=== PATIENT | female | born 1995 | race African-American/Black ===

== ENCOUNTER 2019-07-02 20:11 | Emergency (ER) | payer OTHER, SELFPAY ==
[2019-07-02 20:35] VITALS: BP 135/86; PULSE 82; RESP 18; TEMP 36.2; O2SAT 100
--- NOTE | 2019-07-02 22:06 | ED.URI ---
HPI - URI/Sore Throat General Chief Complaint: Upper Respiratory Infection Stated Complaint: sore throat Time Seen by Provider: 07/02/19 22:04 Source: patient and RN notes reviewed Mode of arrival: ambulatory Limitations: no limitations History of Present Illness HPI Narrative: Pt is a 24 y/o female presenting to the ED c/o ST. Pt states she has been experiencing a ST along with Bilateral otalgia for 2 days. Pt states she experienced mild CP on her way to the ED, but denies fever or cough. Her sx, at this point, are all gone. Pt states her otalgia has resolved. Pertinent past history: other (None) Onset (ago): day(s) (2) Associated symptoms: chest pain and ear pain (Bilateral (resolved)) Related Data Home Medications Medication Instructions Recorded Confirmed insulin glargine [Lantus U-100 35 unit SUBCUT HS 07/02/19 Insulin] insulin lispro [Humalog KwikPen 10 unit SUBCUT ONCE 07/02/19 Insulin] Allergies Allergy/AdvReac Type Severity Reaction Status Date / Time No Known Allergies Allergy Unverified 01/15/17 16:45 Review of Systems Review of Systems: All systems reviewed & are unremarkable except as noted in HPI and below Constitutional: Constitutional: Denies fever(s) ENT: Reports otalgia (Bilateral (resolved)) and Reports sore throat Cardiovascular: Cardiovascular: Denies chest pain Respiratory: Respiratory: Denies cough PMFSH Past Medical History Medical History Diabetes mellitus Surgical History Surgical History History of tonsillectomy Social History Social History Smoking status: Unknown if ever smoked Gender identity (if verbalized by the patient): Female Exam Const: General: healthy appearing, no acute distress and well developed Nutritional Appearance: well nourished Orientation/consciousness: patient oriented x3 (alert) and Other orientation findings (Alert) Limitations: no limitations HENMT: Head: normocephalic and atraumatic Ears: external ears normal General nose exam: No nasal discharge present and no epistaxis Face and sinus: face symmetric Mouth: Yes lip normal, Yes tongue normal and Yes moist mucous membranes Throat: other (No exudate, no erythema) Eyes: Conjunctivae: conjunctivae normal Sclera: sclerae normal EOM: EOMs intact bilaterally Neck: Neck: full ROM, no lymphadenopathy and supple Thyroid: thyroid normal Resp: Effort & Inspection: normal respiratory effort Auscultation: clear to auscultation bilaterally, no rales, no rhonchi, no wheezes and other (breath sounds equal) Cardio: Rate: regular rate Rhythm: regular rhythm Heart sounds: no gallops and no murmurs Back/Spine/Pelvis: Thoracic/Lumbar Spine: thoracic and lumbar spine normal to inspection Skin: General skin exam: normal color and no rashes or lesions noted Neuro: General: patient oriented x3 (alert), moves all extremities and no focal motor deficits Cranial nerves: Yes facial symmetry Speech: normal speech Motor exam (neuro): Motor abnormalities not present Extrem: General: normal to inspection, full ROM and no pedal edema Psych: Affect: normal affect Course Course Emergency Course: exam unremarkable and her sx have all resolved Vital Signs Vital signs: Vital Signs Temperature 36.2 C L 07/02/19 20:35 Pulse Rate 82 07/02/19 20:35 Respiratory Rate 18 07/02/19 20:35 Blood Pressure 135/86 07/02/19 20:35 Pulse Oximetry 100 07/02/19 20:35 Temperature 36.2 C L 07/02/19 20:35 Pulse Rate 80 07/02/19 22:15 Respiratory Rate 20 07/02/19 22:15 Blood Pressure 130/71 07/02/19 22:15 Pulse Oximetry 100 07/02/19 22:15 MDM - URI/Sore Throat Lab Data Labs: Strep Screen Presumptive Negative *(Reference Range: Negative)* ECG Data EKG #1: EKG Interpretation: normal rate, sinus rhythm, no S
[2019-07-02 22:13] VITALS: BP 130/71; PULSE 80; RESP 18; O2SAT 100
[2019-07-02 22:15] VITALS: BP 130/71; PULSE 80; RESP 20; O2SAT 100
--- NOTE | 2019-07-02 22:17 | ECG_ITS ---
Measurements Intervals [place] Rate: 68 P: 46 AL: 142 QRS: 25 QRSD: 77 T: 16 QT: 395 QTc: 421 Interpretive Statements SINUS RHYTHM NORMAL ECG Electronically Signed On 07-03-2019 6:40:07 [employer] by Thierno Garay D.O.
[2019-07-02 22:37] VITALS: BP 129/73; PULSE 73; RESP 12; TEMP 37.2; O2SAT 100
== END 2019-07-02 22:38 | disposition home or self-care (01) ==
PROVIDERS: Emergency Provider Emergency Medicine; PCP Family Medicine
DX: J06.9 Acute upper respiratory infection, unspecified (principal); E11.9 Type 2 diabetes mellitus without complications; Z79.4 Long term (current) use of insulin
CPT/HCPCS: 87081; 87880; 93005; 99283

== ENCOUNTER 2019-07-14 16:35 | Emergency (ER) | payer OTHER, SELFPAY ==
[2019-07-14 16:39] VITALS: BP 141/66; PULSE 87; RESP 20; TEMP 36.7; O2SAT 100
[2019-07-14 16:50] VITALS: O2SAT 98
--- NOTE | 2019-07-14 17:02 | ED.URI ---
HPI - URI/Sore Throat General Chief Complaint: Upper Respiratory Infection Stated Complaint: SORE THROAT Time Seen by Provider: 07/14/19 16:50 Source: patient Mode of arrival: ambulatory Limitations: no limitations History of Present Illness HPI Narrative: This is a 24-year-old female that presents the emergency department for sore throat x3 days. Reports pain is worse with swallowing. She has been taking [id number] medications with little relief. Denies fever, cough, congestion, or shortness of breath. Related Data Home Medications Medication Instructions Recorded Confirmed insulin glargine [Lantus U-100 35 unit SUBCUT HS 07/02/19 Insulin] insulin lispro [Humalog KwikPen 10 unit SUBCUT ONCE 07/02/19 Insulin] Allergies Allergy/AdvReac Type Severity Reaction Status Date / Time No Known Allergies Allergy Verified 07/14/19 16:51 Review of Systems Review of Systems: Narrative: CONSTITUTIONAL: Denies fever ENT: Reports sore throat. Denies rhinorrhea, congestion, or otalgia. CARDIOVASCULAR: Denies chest pain RESPIRATORY: Denies cough or dyspnea. All systems reviewed & are unremarkable except as noted in HPI and below PMFSH Social History Social History Smoking status: Unknown if ever smoked Gender identity (if verbalized by the patient): Female Exam Narrative: Exam Narrative: GENERAL: Well-appearing, well-nourished, and in no acute distress. HEAD: Normocephalic, atraumatic. EYES: EOMI. ENT: Nares clear, no rhinorrhea or epistaxis. Mucous membranes moist. Oropharynx with mild symmetric tonsillar hypertrophy, no exudate or other lesions. Bilateral TMs pearly torres non-bulging. Uvula midline. No trismus NECK: Supple. No adenopathy or masses. CHEST: Clear to auscultation. No respiratory distress. No wheezes rales or rhonchi HEART: Regular rate and rhythm. No murmur heard. Normal peripheral pulses. EXTREMITIES: Normal range of motion. No edema. SKIN: Warm, dry, no rash. NEURO: No focal deficits. Alert and oriented x3. PSYCH: Normal mood and affect Course Vital Signs Vital signs: Vital Signs Temperature 98.0 F 07/14/19 16:39 Pulse Rate 87 07/14/19 16:39 Respiratory Rate 20 07/14/19 16:39 Blood Pressure 141/66 H 07/14/19 16:39 Pulse Oximetry 100 07/14/19 16:39 Temperature 98.0 F 07/14/19 16:39 Pulse Rate 87 07/14/19 16:39 Respiratory Rate 20 07/14/19 16:39 Blood Pressure 141/66 H 07/14/19 16:39 Pulse Oximetry 98 07/14/19 16:50 MDM - URI/Sore Throat MDM Narrative Medical decision making narrative: Patient presents the emergency department for sore throat x3 days. She is afebrile and nontoxic-appearing. Mild symmetric tonsillar hypertrophy on exam without exudate or other lesions. Uvula is midline. Strep screen is negative. Patient was instructed on care of viral pharyngitis. She is to follow-up with her primary care doctor. She was given warnings to return to the ER Lab Data Attestation: I reviewed the patient's lab results. Labs: Strep Screen Presumptive Negative *(Reference Range: Negative)* Critical Care Time Critical Care Time Critical Care Time: No Discharge Plan Discharge Clinical Impression: Pharyngitis Qualifiers: Pharyngitis/tonsillitis etiology: unspecified etiology Qualified Code(s): J02.9 - Acute pharyngitis, unspecified Patient Disposition: Home, Self-Care Condition: Stable Instructions: Pharyngitis (ED) Additional Instructions: Return to the emergency department for fever greater than 101, trouble swallowing, trouble breathing, or any other concerns Remain well-hydrated, get plenty of rest. Take Tylenol or Motrin [id number] for pain as needed. Lozenges or Chloraseptic spray for sore throat. Follow up with your primary care doctor Prescriptions: No Action Lantus U-100 Insulin 100 unit/mL Solution 35 unit SUBCUT HS RF: 0 insulin
[2019-07-14 17:35] VITALS: BP 140/74; PULSE 84; RESP 16; O2SAT 99
== END 2019-07-14 17:37 | disposition home or self-care (01) ==
PROVIDERS: Emergency Provider Emergency Medicine; PCP Family Medicine
DX: J02.9 Acute pharyngitis, unspecified (principal); E11.9 Type 2 diabetes mellitus without complications; Z79.4 Long term (current) use of insulin
CPT/HCPCS: 87081; 87880; 99283

== ENCOUNTER 2019-12-30 09:21 | Observation (INO) | payer OTHER, SELFPAY ==
--- NOTE | ~2019-12-30 | XR_ITS ---
EXAMINATION: XR chest 2V DATE: 12/30/2019 10:36 INDICATION: Chest pain. Hyperglycemia. TECHNIQUE: PA and lateral views of the chest were obtained. COMPARISON: None FINDINGS: The lungs are clear with no focal airspace opacities, pulmonary edema, pleural effusion or pneumothor ax. The cardiomediastinal silhouette is normal. Visualized bones and soft tissues are unremarkable. IMPRESSION: 1. Normal chest radiograph. Reviewed, dictated and finalized at location A. IMPRESSION: 1. Normal chest radiograph.
[2019-12-30 09:36] LABS: Glucose Point of Care 399 (65-105)
--- NOTE | 2019-12-30 09:41 | ED.RECABL ---
HPI - Recheck/Abnormal Lab/Rx General Chief Complaint: Recheck/Abnormal Lab/Rx Stated Complaint: high blood sugar Time Seen by Provider: 12/30/19 09:27 Source: patient and EMS Mode of arrival: EMS Limitations: no limitations History of Present Illness HPI narrative: Patient is a 24-year-old female with a history of type 1 diabetes who presents for evaluation of chest pain and high blood sugar readings. Per patient, she has been feeling unwell since last night, she states that over the night she had polyuria, but then attempted to go to work this morning, when she arrived at work, noticed she was having some chest and shoulder pain. She states that she thought it could be attributed to her glucose, so she checked her glucose pump and noticed that it was disconnected and the needle was bent. Patient was able to fix her needle and administered herself 5 units. She stated she checked her glucose level and it was greater than 300. Patient states that she then threw up this morning and that was associated with the chest pain. After the vomiting stopped, chest pain resolved. No current chest pain or shortness of breath. No fever, hemoptysis, leg pain, calf swelling or history of DVT. No recent long car or air travel. Patient follows with an city marshal at [facility]. Related Data Home Medications Medication Instructions Recorded Confirmed insulin lispro [Humalog KwikPen 10 unit SUBCUT ONCE 07/02/19 Insulin] Allergies Allergy/AdvReac Type Severity Reaction Status Date / Time No Known Allergies Allergy Verified 12/30/19 09:51 Review of Systems Review of Systems: Narrative: CONSTITUTIONAL: Denies fever, chills, or sweats. CARDIOVASCULAR: Denies current chest pain, palpitations, or edema. RESPIRATORY: Denies cough or dyspnea. GASTROINTESTINAL: Denies abdominal pain, reports mild nausea GENITOURINARY: Denies dysuria or hematuria. SKIN: Denies rash or itching. MUSCULOSKELETAL: Denies back pain, joint pain, or myalgia. NEUROLOGIC: Denies headache, numbness, or weakness. [facility] Past Medical History Medical History Diabetes mellitus Surgical History Surgical History History of tonsillectomy Social History Social History (Updated 12/30/19 @ 09:58 by Kayli Sierra MD) Smoking status: Unknown if ever smoked Alcohol intake: current Alcohol use details: Social Gender identity (if verbalized by the patient): Female Exam Narrative: Exam Narrative: GENERAL: Awake, alert, conversant HEAD: Normocephalic, atraumatic. EYES: PERRLA and EOMI. ENT: Nares clear, no rhinorrhea or epistaxis. Mucous membranes moist. NECK: Supple. CHEST: No respiratory distress, breathing even and non labored HEART: Regular rate, sinus rhythm ABDOMEN:Non distended, non tender, pump overlying right abdomen, disconnected EXTREMITIES: Normal range of motion. No edema. SKIN: Warm, dry, no rash. NEURO:No focal deficits. Alert and oriented x3 Course Vital Signs Vital signs: Vital Signs Temperature 36.8 C 12/30/19 09:43 Pulse Rate 109 H 12/30/19 09:43 Respiratory Rate 17 12/30/19 09:43 Blood Pressure 113/78 12/30/19 09:43 Pulse Oximetry 100 12/30/19 09:43 Temperature 36.8 C 12/30/19 09:43 Pulse Rate 88 12/30/19 10:56 Respiratory Rate 18 12/30/19 10:56 Blood Pressure 115/67 12/30/19 10:56 Pulse Oximetry 100 12/30/19 10:56 MDM - Recheck/Abnormal Lab/Rx MDM Narrative Medical decision making narrative: Patient presented for evaluation and of high glucose readings and vomiting. At the time of assessment, ABCs are intact and vital signs are stable. Patient is well-appearing without any current chest pain reported to me, she does associate the chest pain with vomiting. No shortness of breath, leg swelling or risk factors for PE. Patient is on control and she does not smoke. L
[2019-12-30 09:43] VITALS: BP 113/78; PULSE 109; RESP 17; TEMP 36.8; O2SAT 100
--- NOTE | 2019-12-30 09:53 | ECG_ITS ---
Measurements Intervals [place] Rate: 112 P: 71 CO: 137 QRS: 38 QRSD: 82 T: -31 QT: 328 QTc: 448 Interpretive Statements SINUS TACHYCARDIA BORDERLINE ST-T WAVE ABNORMALITY- ANTEROLAT/INF LEADS ABNORMAL ECG Electronically Signed On 12-31-2019 10:37:52 CDT by Thierno Garay D.O.
[2019-12-30 10:05] LABS: Base Excess ABG -8.8 mEq/l (+/-2.0); Carboxyhemoglobin 0.4 % THb (0-2.0); Device ROOM AIR; Fractional Inspired Oxygen 21 %; HCO3 ABG 15.8 mEq/l (22.0-26.0); Methemoglobin ABG 0.3 %THb (0-1.5); Modified Allen's Test Pass; Oxygen Content ABG 17.7 %vol (16.0-22.0); Oxygen Saturation ABG 97.2 % (95.0-100.0); Oxyhemoglobin 96.1 % THb (90.0-100.0); PCO2 ABG 30.2 mmHg (35.0-45.0); PO2 ABG 98.6 mmHg (80.0-100.0); Reduced Hemoglobin 3.2 %THb (0-5.0); Site Drawn RIGHT RADIAL; pH ABG 7.336 (7.350-7.450)
[2019-12-30] MEDS: SODIUM CHLORIDE 0.9% IV 1,000 ML 999 ML IV CONT (10:46)
[2019-12-30 10:56] VITALS: BP 115/67; PULSE 88; RESP 18; O2SAT 100
[2019-12-30 11:03] LABS: Basophils Percent Auto 0.3 % (0.2-1.2); Eosinophils Percent Auto 0.1 % (0-4.4); Hematocrit 38.2 % (37.0-47.0); Hemoglobin 12.5 g/dL (12.0-15.0); Immature Granulocyte Absolute 0.05 K/mm3 (0.00-0.031); Immature Granulocyte Percent A 0.7 % (0-0.5); Lymphocytes Absolute Auto 0.61 K/mm3 (0.9-3.2); Lymphocytes Percent Auto 8.2 % (18.3-44.2); Mean Corpuscular HGB Conc 32.7 g/dl (32-36); Mean Corpuscular Hemoglobin 31.6 pg (26-34); Mean Corpuscular Volume 96.7 fl (80-100); Mean Platelet Volume 10.4 fl (7.4-10.4); Monocytes Absolute Auto 0.2 K/mm3 (0.1-0.6); Monocytes Percent Auto 2.4 % (2.6-8.5); Neutrophils Absolute Auto 6.6 K/mm3 (1.3-6.7); Neutrophils Percent Auto 88.3 % (45.5-73.1); Platelet Count Result 248 k/mm3 (150-375); Red Blood Count 3.95 M/mm3 (4.2-5.4); Red Cell Distribution Width 12.6 % (11.5-14.5); White Blood Count 7.5 K/mm3 (4.5-10.0)
[2019-12-30 11:14] LABS: Add Urine Microscopic? YES; Appearance Urine Clear (Clear); Bacteria Urine Trace /hpf; Bilirubin Urine Negative (Negative); Blood Urine Negative (Negative); Color Urine Straw (Yellow); Glucose Urine UA 3+ mg/dL (Negative); Ketones Urine 2+ mg/dL (Negative); Leukocyte Esterase Ur Negative LEU/UL (Negative); Mucus Urine Rare /lpf; Nitrate Urine Negative (Negative); Potassium 4.6 mmol/L (3.4-5.0); Protein Urine Negative (Negative); RBC Urine 0-2 /hpf (0-2); Squamous Epithelial Cell Urine Many /hpf (Few); Urobilinogen Urine Negative mg/dL (<2.0); WBC Urine 0-3 /hpf
[2019-12-30 11:20] LABS: Beta-Hydroxybutyrate/Acetoacetate 2.57 mmol/L (0.02-0.27); D Dimer 0.27 ug/mL (<0.48); Specific Grav Ur 1.032 (1.001-1.035)
[2019-12-30 11:25] LABS: Alanine Aminotransferase 17 U/L (4-35); Albumin Level 4.2 g/dL (3.5-5.1); Alkaline Phosphatase 75 U/L (38-126); Anion Gap 10 mmol/L (8-16); Aspartate Amino Transferase 22 U/L (14-36); Bilirubin,Total 0.6 mg/dL (0.2-1.3); Blood Urea Nitrogen 17 mg/dL (7-17); Calcium 8.9 mg/dL (8.4-10.2); Carbon Dioxide 21 mmol/L (22-30); Chloride 102 mmol/L (98-107); Estimated CRCL calculation 101 ml/min; Estimated Glomerular Filt Rate > 60; Glucose 304 mg/dL (65-105); Magnesium 1.8 mg/dL (1.6-2.3); Phosphorus 3.5 mg/dL (2.5-4.5); Sodium 133 mmol/L (137-145)
[2019-12-30 11:26] LABS: Troponin I < 0.012 ng/mL (0.000-0.034)
[2019-12-30] MEDS: ONDANSETRON INJ 4 MG/2 ML VIAL IV PUSH (12:38)
[2019-12-30] MEDS: SODIUM CHLORIDE 0.9% IV 1,000 ML 125 ML IV CONT (12:38)
[2019-12-30 12:52] VITALS: BP 112/58; PULSE 100; RESP 18; TEMP 36.8; O2SAT 100
[2019-12-30 13:05] LABS: Glucose Point of Care 237 (65-105)
--- NOTE | 2019-12-30 13:06 | PC.NURSE ---
Dr. Sierra aware of repeat blood sugar noted at 237. Verbal order to hold insulin dose of 5 units SQ at this time.
[2019-12-30 13:49] LABS: Glucose Point of Care 224 (65-105)
[2019-12-30 13:57] VITALS: BP 107/47; PULSE 103; RESP 20; O2SAT 98
--- NOTE | 2019-12-30 14:28 | ADMGEN ---
This patient, Adryan Cameron, was admitted to 2 Medical Room 261-01. Patient/family oriented to hospital policies and general routines including ID bracelet, bed and alarms, visiting hours, pain management, procedures, bathroom and other care routines, personal items, smoking policy, room service/diet, and visiting hours. Valuables list has been completed. Information on how to activate the Rapid Response Team has been discussed. Patient/Family are encouraged to report perceived risks to care and to ask questions if they do not understand what they are told or what they should do. Report received from TREVOR Ch.
[2019-12-30 14:52] LABS: Glucose 226 mg/dL (65-105)
[2019-12-30 15:04] LABS: Troponin I < 0.012 ng/mL (0.000-0.034)
[2019-12-30 16:16] VITALS: BP 104/58; PULSE 100; RESP 14; TEMP 36.9; O2SAT 100; BMI 31.6
[2019-12-30 16:46] LABS: Glucose Point of Care 273 (65-105)
[2019-12-30] MEDS: INSULIN ASPART (*BKC) 100 UNITS/ML SUB-Q ×2 (17:03→21:11)
[2019-12-30] MEDS: ACETAMINOPHEN 325 MG TABLET 650 MG PO (17:49)
[2019-12-30 21:03] VITALS: BP 96/53; PULSE 109; RESP 16; TEMP 37.4; O2SAT 100
[2019-12-30 21:23] LABS: Glucose Point of Care 347 (65-105)
--- NOTE | 2019-12-31 00:01 | PM.IMHP ---
H&P: HPI History of Present Illness Date/Time: 12/31/19 00:01 Chief complaint: Hyperglycemia Narrative: Adryan Cameron is a 24 year old female Who has insulin-dependent diabetes type 1 she was diagnosed when she was 13 years old. The patient stated her last time she was in DKA with a was about 1 year ago. The patient stated that she had a pump malfunction 1 year ago was unable to have insulin readily available that she could bolus. Today the patient came into the emergency room to be evaluated for chest pain and high blood sugar readings. She felt unwell since last night And had high readings last night. Typically her pump would tell her if the needles better there is a problem but it did not alarm her. The patient stated she was having some chest pain and shoulder pain when she attempted to go to work today. Which she got to work she noticed that her insulin pump had not been working appropriately. She stated that the needle was bend. The patient was able to fix the needle and administered herself 5 units. She checked her blood sugar and was greater than 300. She started to Vomit and have chest pain. After she vomited the chest pain was resolved. The patient sees skiff operator at [facility]. The patient was given Zofran, Tylenol, IV fluids and insulin and ER. Patient is made NPO. The ED provider reported to me that her anion gap was closed. on her lab work her anion gap was listed as 10. The patient had 3+ glucose and 2+ ketones in her urine. Troponin was negative. Chest x-ray was normal. ED provider noted that the patient initially had a gap and low bicarb and was given 2 L of fluid and the anion gap was closed. She had called the shipfitter helper who stated the patient is not in diabetic ketoacidosis. Please see ER notes. Patient's pH was 7.336 and her bicarb was 15.8. Her Beta hydroxybutyrate acetoacetate was noted to be 2.57. on patient's BMP her bicarb was 21. Her labs are difficult to view but are present when each part of the chemistries clicked on. The patient has taken her pump off. And allowing as to manage her blood sugars. Date of service is 12/31/2019 Review of Systems Review of Systems: All systems reviewed & are unremarkable except as noted in HPI and below Constitutional: Constitutional: Reports as per HPI and Reports no additional constitutional complaints Eyes: Eyes: Reports as per HPI and Reports no additional eye complaints ENT: Reports system reviewed and no additional complaints, except as documented and Reports Normal hearing present Cardiovascular: Cardiovascular: Reports no additional cardiovascular complaints Respiratory: Respiratory: Reports no additional respiratory complaints and Reports no additional respiratory complaints Gastrointestinal: Gastrointestinal: Reports as per HPI and Reports no additional gastrointestinal complaints Musculoskeletal: Musculoskeletal: Reports no additional musculoskeletal complaints Integumentary/Breasts: Skin/Breast: Reports system reviewed and no additional complaints, except as docu and Reports as per HPI Neurologic: Reports system reviewed and no additional complaints, except as documented, Reports as per HPI and Reports Normal hearing present Psychiatric: Psychiatric: Reports no additional psychiatric complaints and Reports as per HPI Endocrine: Endocrine: Reports no additional endocrine complaints Hematologic/Lymphatic: Hematologic/Lymphatic: Reports no additional hematologic/lymphatic complaints Allergic/Immunologic: Allergic/Immunologic: Reports no additional allergic/immunologic complaints [facility] Past Medical History Medical History (Updated 12/31/19 @ 00:15 by Hailee Bass NP) Diabetes mellitus type 1 diabetes insulin-dependent. Diagnosed at the age of 13 Surgical History Surgical History History of tonsillectomy Family History Family History (Reviewed 12/31/19 @ 00
[2019-12-31 00:42] VITALS: BP 90/53; PULSE 98; RESP 16; TEMP 36.8; O2SAT 100
[2019-12-31] MEDS: INSULIN ASPART (*BKC) 100 UNITS/ML SUB-Q ×3 (00:42→13:22)
[2019-12-31] MEDS: SODIUM CHLORIDE 0.9% IV 1,000 ML 125 ML IV CONT ×2 (00:42→09:18)
[2019-12-31 00:48] LABS: Hematocrit 33.2 % (37.0-47.0); Hemoglobin 10.7 g/dL (12.0-15.0); Mean Corpuscular HGB Conc 32.2 g/dl (32-36); Mean Corpuscular Hemoglobin 31.4 pg (26-34); Mean Corpuscular Volume 97.4 fl (80-100); Mean Platelet Volume 10.7 fl (7.4-10.4); Platelet Count Result 228 k/mm3 (150-375); Red Blood Count 3.41 M/mm3 (4.2-5.4); Red Cell Distribution Width 12.9 % (11.5-14.5); White Blood Count 6.5 K/mm3 (4.5-10.0)
[2019-12-31 00:58] LABS: Anion Gap 6 mmol/L (8-16); Blood Urea Nitrogen 14 mg/dL (7-17); Carbon Dioxide 21 mmol/L (22-30); Chloride 104 mmol/L (98-107); Estimated CRCL calculation 119 ml/min; Estimated Glomerular Filt Rate > 60; Glucose 255 mg/dL (65-105); Potassium 4.5 mmol/L (3.4-5.0); Sodium 131 mmol/L (137-145)
[2019-12-31 01:00] LABS: Hemoglobin A1C 8.3 % (<5.7)
[2019-12-31 01:02] LABS: Glucose Point of Care 245 (65-105)
[2019-12-31 01:10] LABS: Troponin I < 0.012 ng/mL (0.000-0.034)
[2019-12-31 05:54] VITALS: BP 96/52; PULSE 106; RESP 20; TEMP 37.1; O2SAT 100
[2019-12-31 06:11] LABS: Basophils Percent Auto 0.6 % (0.2-1.2); Eosinophils Absolute Auto 0.1 K/mm3 (0-0.3); Hematocrit 34.1 % (37.0-47.0); Immature Granulocyte Absolute 0.02 K/mm3 (0.00-0.031); Immature Granulocyte Percent A 0.4 % (0-0.5); Lymphocytes Absolute Auto 2.02 K/mm3 (0.9-3.2); Lymphocytes Percent Auto 38.5 % (18.3-44.2); Mean Corpuscular HGB Conc 32.3 g/dl (32-36); Mean Corpuscular Hemoglobin 30.8 pg (26-34); Mean Corpuscular Volume 95.5 fl (80-100); Mean Platelet Volume 10.7 fl (7.4-10.4); Monocytes Absolute Auto 0.3 K/mm3 (0.1-0.6); Monocytes Percent Auto 5.9 % (2.6-8.5); Neutrophils Absolute Auto 2.8 K/mm3 (1.3-6.7); Neutrophils Percent Auto 53.6 % (45.5-73.1); Platelet Count Result 240 k/mm3 (150-375); Red Blood Count 3.57 M/mm3 (4.2-5.4); Red Cell Distribution Width 12.5 % (11.5-14.5); White Blood Count 5.2 K/mm3 (4.5-10.0)
[2019-12-31 06:21] LABS: Anion Gap 6 mmol/L (8-16); Blood Urea Nitrogen 12 mg/dL (7-17); Calcium 7.9 mg/dL (8.4-10.2); Carbon Dioxide 19 mmol/L (22-30); Chloride 106 mmol/L (98-107); Estimated CRCL calculation 140 ml/min; Estimated Glomerular Filt Rate > 60; Glucose 253 mg/dL (65-105); Magnesium 1.7 mg/dL (1.6-2.3); Potassium 4.3 mmol/L (3.4-5.0); Sodium 131 mmol/L (137-145)
[2019-12-31 06:28] LABS: Glucose Point of Care 197 (65-105)
[2019-12-31] MEDS: ACETAMINOPHEN 325 MG TABLET 650 MG PO (08:03)
[2019-12-31] MEDS: ONDANSETRON INJ 4 MG/2 ML VIAL IV PUSH (08:04)
[2019-12-31 08:50] LABS: Glucose Point of Care 283 (65-105)
[2019-12-31 10:45] VITALS: BMI 31.6
[2019-12-31] MEDS: INSULIN GLARGINE (*BKC) 100 UNITS/ML 26 UNITS SUB-Q (12:16)
[2019-12-31 12:42] LABS: Glucose Point of Care 323 (65-105)
--- NOTE | 2019-12-31 13:21 | PM.DS ---
DS: Admitting Diagnosis Admitting Diagnosis Admitting Diagnosis: Hyperglycemia DS: Discharge Diagnosis Discharge Diagnosis (1) Acute hyperglycemia: Code(s): R73.9 - Hyperglycemia, unspecified Status: Acute Assessment and Plan: patient was unable to have anybody go to her house and get her supplies for her insulin pump. She was agreeable with the Lantus for tonight. And will do the high-dose sliding scale. Will continue to check her blood sugars every 4 hours. At this time there going up. We will continue to do her Accu-Cheks every 4 hours. The patient stated that she has a hourly basal rate so hopefully the Lantus will help. Will continue with IV fluids in the Zofran for the nausea. I will check another BMP tonight and again in the morning to make sure that the anion group gap is closed. Her labs were difficult to obtain in the system. I would like to recheck them for accuracy. (2) Diabetes mellitus: Code(s): E11.9 - Type 2 diabetes mellitus without complications Status: Chronic Assessment and Plan: Will check her A1c. She sees an bakery assistant at home. If somebody could bring her her tubing with a needle then she would be able to put her pump back on. For now will do our best to get her blood sugars down with Lantus and sliding scale insulin. (3) Nausea & vomiting: Qualifiers: Vomiting Intractability: non-intractable Vomiting type: unspecified Qualified Code(s): R11.2 - Nausea with vomiting, unspecified Code(s): R11.2 - Nausea with vomiting, unspecified Status: Acute Assessment and Plan: Continue with IV fluids and Zofran. DS: Summary Hospital Course Reason for hospitalization: Chief complaint: Hyperglycemia Narrative: Adryan Cameron is a 24 year old female Who has insulin-dependent diabetes type 1 she was diagnosed when she was 13 years old. The patient stated her last time she was in DKA with a was about 1 year ago. The patient stated that she had a pump malfunction 1 year ago was unable to have insulin readily available that she could bolus. Today the patient came into the emergency room to be evaluated for chest pain and high blood sugar readings. She felt unwell since last night And had high readings last night. Typically her pump would tell her if the needles better there is a problem but it did not alarm her. The patient stated she was having some chest pain and shoulder pain when she attempted to go to work today. Which she got to work she noticed that her insulin pump had not been working appropriately. She stated that the needle was bend. The patient was able to fix the needle and administered herself 5 units. She checked her blood sugar and was greater than 300. She started to Vomit and have chest pain. After she vomited the chest pain was resolved. The patient sees bakery assistant at [facility]. The patient was given Zofran, Tylenol, IV fluids and insulin and ER. Patient is made NPO. The ED provider reported to me that her anion gap was closed. on her lab work her anion gap was listed as 10. The patient had 3+ glucose and 2+ ketones in her urine. Troponin was negative. Chest x-ray was normal. ED provider noted that the patient initially had a gap and low bicarb and was given 2 L of fluid and the anion gap was closed. She had called the account manager forest service who stated the patient is not in diabetic ketoacidosis. Please see ER notes. Patient's pH was 7.336 and her bicarb was 15.8. Her Beta hydroxybutyrate acetoacetate was noted to be 2.57. on patient's BMP her bicarb was 21. Her labs are difficult to view but are present when each part of the chemistries clicked on. The patient has taken her pump off. And allowing as to manage her blood sugars. Date of service is 12/31/2019 Hospital Course: Patient with type 1 diabetes on insulin pump and had problem with infusion of insulin dueto malfunction of needle, patient was seen diabet
[2019-12-31] MEDS: INSULIN ASPART (*BKC) 100 UNITS/ML 6 UNITS SUB-Q (13:22)
[2019-12-31 13:27] LABS: Glucose Point of Care 321 (65-105)
[2019-12-31 14:00] VITALS: BP 109/53; PULSE 104; RESP 20; TEMP 36.8; O2SAT 100
== END 2019-12-31 16:35 | disposition home or self-care (01) ==
LOC: ANHED 12:29 → ANH2MED 12-31 13:21
PROVIDERS: Nurse Practitioner; Admitting Provider Family Medicine; Emergency Provider Emergency Medicine; PCP Family Medicine; Visit Provider Family Medicine
DX: T85.694A Other mechanical complication of insulin pump, initial encounter (principal); E10.65 Type 1 diabetes mellitus with hyperglycemia; Z79.4 Long term (current) use of insulin; Z96.41 Presence of insulin pump (external) (internal)
CPT/HCPCS: 36415; 36600; 71046; 80048; 80053; 81001; 81025; 82010; 82375; 82805; 82947; 82948; 83036; 83050; 83735; 84100; 84484; 85025; 85027; 85380; 93005; 96361; 96374; 99285; A9270; G0378; J1815; J2405; J7030

== ENCOUNTER 2020-03-24 21:10 | Emergency (ER) | payer OTHER, SELFPAY ==
[2020-03-24 21:17] VITALS: BP 105/77; PULSE 67; RESP 16; TEMP 36.9; O2SAT 100
[2020-03-24 21:18] LABS: Glucose Point of Care 375 (65-105)
[2020-03-24 23:59] VITALS: BP 120/68; PULSE 75; RESP 16; TEMP 36.6; O2SAT 99
--- NOTE | 2020-03-25 00:58 | ED.GENADULT ---
HPI - General Adult General Chief complaint: Recheck/Abnormal Lab/Rx Stated complaint: high blood sugar, blurry vision Time Seen by Provider: 03/25/20 00:27 History of Present Illness HPI narrative: Patient is a 25-year-old female who presents ER with concerns for elevated blood glucose. Patient reports that she started to have some blurry vision at home and was feeling nauseated. Her Accu-Chek was reading over 500. Her sister gave her a corrective dose of insulin. She reports her symptoms then resolved. Upon arrival here her blood sugar was in the upper 300s. She also reports she is sweaty at home for a brief amount time. She is not having any runny nose/sore throat/productive cough. She is has no chest pain. No urinary symptoms at this time. Unsure why her blood sugar went so high. Related Data Home Medications Medication Instructions Recorded Confirmed Humalog U-100 Insulin 1 sliding scale dose SUBCUT 12/30/19 12/30/19 USEASDIRECTD Allergies Allergy/AdvReac Type Severity Reaction Status Date / Time No Known Allergies Allergy Verified 12/30/19 09:51 Review of Systems Review of Systems: All systems reviewed & are unremarkable except as noted in HPI and below Constitutional: Constitutional: Denies chills and Denies fever(s) Eyes: Eyes: Reports change in vision and Denies photophobia Cardiovascular: Cardiovascular: Denies chest pain and Denies radiating jaw, neck or arm pain Gastrointestinal: Gastrointestinal: Denies abdominal pain, Reports nausea and Denies vomiting Genitourinary: Genitourinary: Denies nocturia, Denies dysuria and Denies urinary incontinence [facility] Past Medical History Medical History (Updated 03/25/20 @ 01:24 by Cheo Guzman MD) Diabetes mellitus type 1 diabetes insulin-dependent. Diagnosed at the age of 13 Surgical History Surgical History History of tonsillectomy Family History Family History Grandparent Diabetes mellitus Other Diabetes mellitus Other Cerebrovascular accident Mother Hypertension Sibling Eczema Social History Social History (Updated 12/31/19 @ 00:17 by Hailee Bass NP) Social History: the patient has no children and she works at [employer] in [place]. She does not have a durable power associate attorney for healthcare. She does not smoke cigarettes or marijuana or use any illicit drugs. She occasionally uses alcohol. She desires to be a full code Smoking status: Never smoker Alcohol intake: current Drinks per week: 3 Substance use: never Substance use type: does not use Gender identity (if verbalized by the patient): Female Spiritual care concerns: No Exam Narrative: Exam Narrative: GENERAL: Well-appearing, well-nourished, and in no acute distress. HEAD: Normocephalic, atraumatic. EYES: PERRL and EOMI. CHEST: Clear to auscultation. No respiratory distress. HEART: Regular rate and rhythm. Normal peripheral pulses. ABDOMEN: Soft, nontender, nondistended. EXTREMITIES: Normal range of motion. No edema. NEURO: Alert and oriented x3. PSYCH: Normal mood and affect. Course Vital Signs Vital signs: Vital Signs Temperature 98.5 F 03/24/20 21:17 Pulse Rate 67 03/24/20 21:17 Respiratory Rate 16 03/24/20 21:17 Blood Pressure 105/77 03/24/20 21:17 Pulse Oximetry 100 03/24/20 21:17 Temperature 97.9 F 03/24/20 23:59 Pulse Rate 75 03/24/20 23:59 Respiratory Rate 16 03/24/20 23:59 Blood Pressure 120/68 03/24/20 23:59 Pulse Oximetry 99 03/24/20 23:59 Medical Decision Making Vital Signs Vital Signs: Vital Signs Temperature 98.5 F 03/24/20 21:17 Pulse Rate 67 03/24/20 21:17 Respiratory Rate 16 03/24/20 21:17 Blood Pressure 105/77 03/24/20 21:17 Pulse Oximetry 100 03/24/20 21:17 Temperature 97.9 F 03/24/20 23:59 Pulse Rate 75 03/24/20 23:59
[2020-03-25 01:06] LABS: Add Urine Microscopic? YES; Appearance Urine Clear (Clear); Bilirubin Urine Negative (Negative); Blood Urine Negative (Negative); Color Urine Yellow (Yellow); Glucose Urine UA 3+ mg/dL (Negative); Ketones Urine Negative (Negative); Leukocyte Esterase Ur Negative LEU/UL (Negative); Mucus Urine Rare /lpf; Nitrate Urine Negative (Negative); Protein Urine Negative (Negative); RBC Urine 0-2 /hpf (0-2); Squamous Epithelial Cell Urine Few /hpf (Few); Urobilinogen Urine Negative mg/dL (<2.0); WBC Urine 0-3 /hpf
[2020-03-25 01:11] LABS: Potassium 4.5 mmol/L (3.4-5.0)
[2020-03-25 01:14] LABS: Anion Gap 7 mmol/L (8-16); Blood Urea Nitrogen 19 mg/dL (7-17); Calcium 9.4 mg/dL (8.4-10.2); Carbon Dioxide 29 mmol/L (22-30); Chloride 98 mmol/L (98-107); Estimated CRCL calculation 102 ml/min; Estimated Glomerular Filt Rate > 60; Glucose 256 mg/dL (65-105); Sodium 134 mmol/L (137-145)
[2020-03-25 02:02] VITALS: BP 107/75; PULSE 61; RESP 18; O2SAT 100
== END 2020-03-25 02:04 | disposition home or self-care (01) ==
PROVIDERS: Emergency Provider Emergency Medicine
DX: E10.65 Type 1 diabetes mellitus with hyperglycemia (principal); Z79.4 Long term (current) use of insulin
CPT/HCPCS: 36415; 80048; 81001; 82948; 99283

== ENCOUNTER 2020-11-15 06:58 | Observation (INO) | payer OTHER, SELFPAY ==
[2020-11-15] VITALS (11 sets, daily range): BP systolic 90–120; BP diastolic 36–70; PULSE 93–123; RESP 14–20; TEMP 36.5–36.9; O2SAT 100
--- NOTE | ~2020-11-15 | CT_ITS ---
EXAMINATION: CT brain wo con INDICATION: Transient alteration of awareness COMPARISON: None TECHNIQUE: Standard unenhanced head CT. The dose-length product (DLP) was 605.33 mGy-cm. The mA was a djusted according to patient size. Iterative reconstruction technique was employed. FINDINGS: There is no intracranial hemorrhage, acute infarction, or abnormal mass lesion. The ventric les are normal. There is no abnormal mass effect or midline shift. The torres-white matter differentiat ion is normal. The basal cisterns are patent. The orbits are normal. The paranasal sinuses, mastoids and calvarium are normal. IMPRESSION: 1. No acute intracranial abnormality. Reviewed, dictated and finalized at location A.
--- NOTE | ~2020-11-15 | XR_ITS ---
EXAMINATION: XR chest 1V INDICATION: Weakness and chest pain TECHNIQUE: AP view of the chest is obtained. COMPARISON: 12/30/2019 FINDINGS: The lungs are free of acute opacities. There is no pleural effusion or pneumothorax. The ca rdiomediastinal silhouette is normal. The visualized bones and soft tissues are unremarkable. IMPRESSION: 1. No acute cardiopulmonary abnormality. Reviewed, dictated and finalized at location A.
[2020-11-15 07:10] LABS: Glucose Point of Care 485 mg/dl (65-105)
--- NOTE | 2020-11-15 07:34 | ECG_ITS ---
Measurements Intervals [place] Rate: 106 P: 69 SD: 136 QRS: 19 QRSD: 79 T: 20 QT: 338 QTc: 450 Interpretive Statements SINUS TACHYCARDIA POSSIBLE LEFT ATRIAL ENLARGEMENT BORDERLINE ST-T WAVE ABNORMALITY- INFERIOR LEADS ABNORMAL ECG Electronically Signed On 11-15-2020 8:14:44 CDT by Thierno Garay D.O.
--- NOTE | 2020-11-15 07:37 | ED.RECABL ---
HPI - Recheck/Abnormal Lab/Rx General Chief Complaint: Recheck/Abnormal Lab/Rx Stated Complaint: elevated blood sugar Time Seen by Provider: 11/15/20 07:20 Source: patient and RN notes reviewed Mode of arrival: EMS Limitations: no limitations History of Present Illness HPI narrative: This is a 25 year old female with insulin dependent diabetes mellitus who presents for evaluation of hyperglycemia. Patient states her blood sugar has been elevated all night running in 300s-400s. She states she has been vomiting all night. Patient also states she thinks she fell but she does not remember. Her mother reports patient had been vomiting all night. She heard patient fall, and she found her on the floor vomiting and incoherent. She denies fever, chills, diarrhea, abdominal pain, cough or shortness of breath. She does report nonradiating midsternal chest pain that occurred earlier prior to her vomiting, but her pain has resolved currently . She is unsure why her blood sugar would be high as she has been using her insulin pump and giving her self boluses of insulin. She is currently on antibiotics for bacterial vaginosis but she denies pelvic pain. Related Data Home Medications Medication Instructions Recorded Confirmed Humalog U-100 Insulin 1 sliding scale dose SUBCUT 12/30/19 12/30/19 USEASDIRECTD insulin glargine [Lantus U-100 See Rx Instructions .ROUTE .COMPLEX 11/15/20 11/15/20 Insulin] insulin lispro [Humalog U-100 See Rx Instructions .ROUTE .COMPLEX 11/15/20 11/15/20 Insulin] metronidazole [Flagyl] 500 mg PO Q12H 11/15/20 11/15/20 Allergies Allergy/AdvReac Type Severity Reaction Status Date / Time No Known Allergies Allergy Verified 11/15/20 07:25 Review of Systems Review of Systems: All systems reviewed & are unremarkable except as noted in HPI and below Constitutional: Constitutional: Reports fatigue Cardiovascular: Cardiovascular: Reports chest pain Respiratory: Respiratory: Denies cough and Denies dyspnea Gastrointestinal: Gastrointestinal: Denies abdominal pain, Denies diarrhea, Reports nausea and Reports vomiting Genitourinary: Genitourinary: Denies nocturia, Denies dysuria and Denies pelvic pain Musculoskeletal: Musculoskeletal: Reports arthralgias Neurologic: Reports headache(s) PMFSH Past Medical History Medical History Diabetes mellitus type 1 diabetes insulin-dependent. Diagnosed at the age of 13 Surgical History Surgical History History of tonsillectomy Family History Family History (Updated 11/15/20 @ 12:55 by Hailee Bass NP) Grandparent Diabetes mellitus Other Diabetes mellitus Other Cerebrovascular accident Mother Hypertension Sibling Eczema Father Gunshot injury from gunshot injury Social History Social History (Updated 11/15/20 @ 12:55 by Hailee Bass NP) Social History: the patient has no children and she works at [employer] in [place]. She does not have a durable power business attorney for healthcare. but stated that she would like to choose her mother as her durable power business attorney. She does not smoke cigarettes or use any illicit drugs. She occasionally uses alcohol. She desires to be a full code She does occasionally smoke marijuana. Smoking status: Never smoker Alcohol intake: never Drinks per week: 3 Alcohol use details: Social Substance use: unknown Substance use type: marijuana Gender identity (if verbalized by the patient): Female Spiritual care concerns: No Exam Const: General: no acute distress and alert Orientation/consciousness: patient oriented x3 Eyes: EOM: EOMs intact bilaterally Resp: Effort & Inspection: normal respiratory effort and no retractions Auscultation: clear to auscultation bilaterally Cardio: Rhythm: regular rhythm Heart sounds: no murmurs GI:
[2020-11-15 08:07] LABS: Alveolar/Arterial O2 Gradient 13.3 mmHg; Base Excess ABG -7.6 mEq/l (+/-2.0); Carboxyhemoglobin 0.6 % THb (0-2.0); Fractional Inspired Oxygen 21 %; HCO3 ABG 16.7 mEq/l (22.0-26.0); Methemoglobin ABG 0.4 %THb (0-1.5); Oxygen Content ABG 18.5 %vol (16.0-22.0); Oxygen Saturation ABG 97.3 % (95.0-100.0); Oxyhemoglobin 96.2 % THb (90.0-100.0); PCO2 ABG 31.1 mmHg (35.0-45.0); PO2 ABG 99.2 mmHg (80.0-100.0); PO2 FiO2 Ratio Arterial Blood 4.72 %; Reduced Hemoglobin 2.8 %THb (0-5.0); Total Hemoglobin 13.6 g/dL (12.0-18.0); pH ABG 7.349 (7.350-7.450)
[2020-11-15] MEDS: SODIUM CHLORIDE 0.9% IV 1,000 ML 999 ML IV CONT ×2 (08:08→08:09)
[2020-11-15] MEDS: ONDANSETRON INJ 4 MG/2 ML VIAL IV PUSH (08:08)
[2020-11-15 08:09] LABS: Device ROOM AIR; Site Drawn RIGHT BRACHIAL
[2020-11-15 08:26] LABS: Basophils Percent Auto 0.3 % (0.2-1.2); Hematocrit 40.2 % (37.0-47.0); Hemoglobin 12.6 g/dL (12.0-15.0); Immature Granulocyte Absolute 0.05 K/mm3 (0.00-0.031); Immature Granulocyte Percent A 0.4 % (0-0.5); Lymphocytes Absolute Auto 0.74 K/mm3 (0.9-3.2); Lymphocytes Percent Auto 5.8 % (18.3-44.2); Mean Corpuscular HGB Conc 31.3 g/dl (32-36); Mean Platelet Volume 10.4 fl (7.4-10.4); Monocytes Absolute Auto 0.5 K/mm3 (0.1-0.6); Monocytes Percent Auto 3.5 % (2.6-8.5); Neutrophils Absolute Auto 11.5 K/mm3 (1.3-6.7); Platelet Count Result 223 k/mm3 (150-375); Red Blood Count 3.94 M/mm3 (4.2-5.4); Red Cell Distribution Width 13.3 % (11.5-14.5); White Blood Count 12.8 K/mm3 (4.5-10.0)
[2020-11-15 08:31] LABS: Add Urine Microscopic? YES; Appearance Urine Clear (Clear); Bacteria Urine Trace /hpf; Bilirubin Urine Negative (Negative); Blood Urine 2+ (Negative); Color Urine Straw (Yellow); Glucose Urine UA 3+ mg/dL (Negative); Ketones Urine 2+ mg/dL (Negative); Leukocyte Esterase Ur Negative LEU/UL (Negative); Nitrate Urine Negative (Negative); Protein Urine Negative (Negative); RBC Urine 0-2 /hpf (0-2); Specific Grav Ur 1.029 (1.001-1.035); Squamous Epithelial Cell Urine Occasional /hpf (Few); Urobilinogen Urine Negative mg/dL (<2.0); WBC Urine 0-3 /hpf
[2020-11-15 08:39] LABS: Alanine Aminotransferase 30 U/L (4-35); Albumin Level 4.4 g/dL (3.5-5.1); Alkaline Phosphatase 81 U/L (38-126); Anion Gap 17 mmol/L (8-16); Aspartate Amino Transferase 39 U/L (14-36); Bilirubin,Total 0.9 mg/dL (0.2-1.3); Blood Urea Nitrogen 20 mg/dL (7-17); Calcium 9.8 mg/dL (8.4-10.2); Carbon Dioxide 16 mmol/L (22-30); Chloride 99 mmol/L (98-107); Estimated CRCL calculation 87 ml/min; Estimated Glomerular Filt Rate > 60; Glucose 457 mg/dL (65-110); Magnesium 1.9 mg/dL (1.6-2.3); Potassium 4.8 mmol/L (3.4-5.0); Sodium 132 mmol/L (137-145)
[2020-11-15 08:44] LABS: Beta-Hydroxybutyrate/Acetoacetate 3.58 mmol/L (0.02-0.27)
[2020-11-15 08:50] LABS: Troponin I < 0.012 ng/mL (0.000-0.034)
[2020-11-15] MEDS: INSULIN HUMAN REGULAR (*BKC) 100 UNITS/ML 7 UNITS IV PUSH (09:04)
[2020-11-15 09:05] LABS: Lactic Acid Reflex 3.3 mmol/L (0.7-2.1)
[2020-11-15 09:12] LABS: Prothrombin Time 12.9 Seconds (11.1-14.7)
[2020-11-15 09:14] LABS: Partial Thromboplastin Time 23.4 SECONDS (22.3-36.8)
[2020-11-15 09:21] LABS: D Dimer 0.47 ug/mL (<0.48)
[2020-11-15 09:41] LABS: Hemoglobin A1C 10.1 % (<5.7)
[2020-11-15 09:59] LABS: Glucose Point of Care 394 mg/dl (65-105)
[2020-11-15] MEDS: INSULIN HUMAN REGULAR (*BKC) 100 UNITS in SODIUM CHLORIDE 0.9% IV 99 ML 5.7 UNITS IV CONT (10:02)
[2020-11-15] MEDS: SODIUM CHLORIDE 0.9% IV 1,000 ML 150 ML IV CONT (10:20)
[2020-11-15] MEDS: diphenhydrAMINE HCl INJ 50 MG/ML VIAL 25 MG IV PUSH (10:26)
[2020-11-15] MEDS: METOCLOPRAMIDE HCL INJ 10 MG/2 ML VIAL IV PUSH (10:27)
[2020-11-15 10:30] LABS: Anion Gap 17 mmol/L (8-16); Blood Urea Nitrogen 20 mg/dL (7-17); Calcium 9.2 mg/dL (8.4-10.2); Carbon Dioxide 15 mmol/L (22-30); Chloride 101 mmol/L (98-107); Estimated CRCL calculation 99 ml/min; Estimated Glomerular Filt Rate > 60; Glucose 323 mg/dL (65-110); Potassium 4.2 mmol/L (3.4-5.0); Sodium 133 mmol/L (137-145)
--- NOTE | 2020-11-15 11:15 | ADMGEN ---
This patient, Mariaa Cameron, was admitted to Intensive Care Unit-7. Patient/family oriented to hospital policies and general routines including ID bracelet, bed and alarms, visiting hours, pain management, procedures, bathroom and other care routines, personal items, smoking policy, room service/diet, and visiting hours. Information on how to activate the Rapid Response Team has been discussed. Patient/Family are encouraged to report perceived risks to care and to ask questions if they do not understand what they are told or what they should do.
[2020-11-15 11:24] LABS: Reflex Lactic Acid Yes or No Add Lactic
[2020-11-15 12:01] LABS: Lactic Acid 1.6 mmol/L (0.7-2.1)
[2020-11-15] MEDS: KCL 20 MEQ/D5/0.45% SOD CHL 1,000 ML 150 ML IV CONT (12:04)
--- NOTE | 2020-11-15 12:17 | WPDCNINT ---
Assessment and Plan Assessment and plan (1) DKA, type 1: Code(s): E10.10 - Type 1 diabetes mellitus with ketoacidosis without coma Status: Acute Assessment and Plan: IV fluid bolus and infusion insulin infusion and q.1 hour Accu-Cheks serial BMPs (2) Nausea & vomiting: Qualifiers: Vomiting Intractability: non-intractable Vomiting type: unspecified Qualified Code(s): R11.2 - Nausea with vomiting, unspecified Code(s): R11.2 - Nausea with vomiting, unspecified Status: Acute Assessment and Plan: p.raubrey Emerson (3) Bacterial vaginosis: Code(s): N76.0 - Acute vaginitis; B96.89 - Other specified bacterial agents as the cause of diseases classified elsewhere Status: Acute Assessment and Plan: continue Flagyl Additional Plan DVT prophylaxis - SCDs Nutrition - NPO Code Status - Full Code 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 Patient states her blood sugar has been elevated all night running in 300s-400s. she also had multiple episodes of vomiting overnight. She did not see any blood in her vomit. She denied any fever abdominal pain. Patient denies fever, chest pain, shortness of breath, cough, abdominal pain,, diarrhea, headache or constipation. She has been taking metronidazole as an outpatient for bacterial vaginosis. she claims compliance with her insulin pump. in ED patient was found to be in DKA. She was started on IV insulin after IV fluid bolus. She is now admitted to ICU for further management. She is little drowsy a she received IV Benadryl in the ED but denies any new complaints at this time. She denies any sick contacts or receiving COVID vaccine at this time. all other systems were reviewed and were negative Review of Systems Review of Systems: All systems reviewed & are unremarkable except as noted in HPI and below ( HPI) PMFSH Past Medical History Medical History Diabetes mellitus type 1 diabetes insulin-dependent. Diagnosed at the age of 13 Surgical History Surgical History History of tonsillectomy Family History Family History Grandparent Diabetes mellitus Other Diabetes mellitus Other Cerebrovascular accident Mother Hypertension Sibling Eczema Social History Social History (Updated 11/15/20 @ 12:18 by Max English MD) Social History: the patient has no children and she works at [employer] in [place]. She does not have a durable power algology teacher for healthcare. She does not smoke cigarettes or use any illicit drugs. She occasionally uses alcohol. She desires to be a full code Smoking status: Never smoker Alcohol intake: current Drinks per week: 3 Alcohol use details: Social Substance use: current Substance use type: marijuana Gender identity (if verbalized by the patient): Female Spiritual care concerns: No Meds Home Medications and Allergies Home Medications Medication Instructions Recorded Confirmed Type Humalog U-100 Insulin 1 sliding scale dose SUBCUT 12/30/19 12/30/19 History USEASDIRECTD insulin glargine [Lantus U-100 See Rx Instructions .ROUTE .COMPLEX 11/15/20 11/15/20 History Insulin] insulin lispro [Humalog U-100 See Rx Instructions .ROUTE .COMPLEX 11/15/20 11/15/20 History Insulin] metronidazole [Flagyl] 500 mg PO Q12H 11/15/20 11/15/20 History Allergies Allergy/AdvReac Type Severity Reaction Status Date / Time No Known Allergies Allergy Verified 11/15/20 07:25 Vital Signs Vital Signs - 24 hr 11/15/20 07:02 11/15/20 08:15 11/15/20 09:00 Temperature 36.6 C Pulse Rate 116 H 117 H 120 H Respirato
[2020-11-15 12:23] LABS: Glucose Point of Care 274 mg/dl (65-105)
[2020-11-15 12:23] LABS: Glucose Point of Care 233 mg/dl (65-105)
--- NOTE | 2020-11-15 12:45 | PM.IMHP ---
H&P: HPI History of Present Illness Date/Time: 11/15/20 12:45Thipallavi is a 25-year-old female patient who has a history of diabetes type 1. The patient typically have an insulin pump but she is not sure what happened with her pump. The patient also has a DEXcom but that has not been working because is not keeping a charge. So she has not been using it. The patient states that she does have boom stick man but then a gun fitter is at [facility] the patient came to the emergency room today for evaluation of hyperglycemia. She tells me that she has only had DKA 1 of the time and has been years ago. The patient has been vomiting all night and had abdominal pain. The patient think she fell but she does not remember. It was reported that her family member heard her fall. They found her on the floor and she was vomiting and incoherent. She denied any fever or chills. The patient reported that she had some nonradiating midsternal chest pain that occurred prior to the vomiting. The chest pain was resolved when she came to the emergency room. she is currently on antibiotics for bacterial vaginosis but denies any pelvic pain. patient was started on IV fluids, Zofran, IV insulin, Reglan, Benadryl, and Tylenol IV. the patient was admited to ICU observation status on the date of service of 11/16/2019 Chief Complaint: nausea vomiting Review of Systems Review of Systems: All systems reviewed & are unremarkable except as noted in HPI and below Constitutional: Constitutional: Reports as per HPI and Reports no additional constitutional complaints Eyes: Eyes: Reports as per HPI and Reports no additional eye complaints ENT: Reports system reviewed and no additional complaints, except as documented and Reports Normal hearing present Cardiovascular: Cardiovascular: Reports no additional cardiovascular complaints Respiratory: Respiratory: Reports no additional respiratory complaints and Reports no additional respiratory complaints Gastrointestinal: Gastrointestinal: Reports as per HPI and Reports no additional gastrointestinal complaints Musculoskeletal: Musculoskeletal: Reports no additional musculoskeletal complaints Integumentary/Breasts: Skin/Breast: Reports system reviewed and no additional complaints, except as docu and Reports as per HPI Neurologic: Reports system reviewed and no additional complaints, except as documented, Reports as per HPI and Reports Normal hearing present Psychiatric: Psychiatric: Reports no additional psychiatric complaints and Reports as per HPI Endocrine: Endocrine: Reports no additional endocrine complaints Hematologic/Lymphatic: Hematologic/Lymphatic: Reports no additional hematologic/lymphatic complaints Allergic/Immunologic: Allergic/Immunologic: Reports no additional allergic/immunologic complaints [facility] Past Medical History Medical History Diabetes mellitus type 1 diabetes insulin-dependent. Diagnosed at the age of 13 Surgical History Surgical History History of tonsillectomy Family History Family History (Updated 11/15/20 @ 12:55 by Hailee Bass NP) Grandparent Diabetes mellitus Other Diabetes mellitus Other Cerebrovascular accident Mother Hypertension Sibling Eczema Father Gunshot injury from gunshot injury Social History Social History (Updated 11/15/20 @ 12:55 by Hailee Bass NP) Social History: the patient has no children and she works at [employer] in [place]. She does not have a durable power associate attorney for healthcare. but stated that she would like to choose her mother as her durable power associate attorney. She does not smoke cigarettes or use any illicit drugs. She occasionally uses alcohol. She desires to be a full code She does occasionally smoke marijuana. Smoking status: Never smoker Alcohol intake: current Drinks per week
[2020-11-15 13:08] LABS: Glucose Point of Care 192 mg/dl (65-105)
[2020-11-15 13:41] LABS: Anion Gap 10 mmol/L (8-16); Blood Urea Nitrogen 18 mg/dL (7-17); Calcium 8.5 mg/dL (8.4-10.2); Carbon Dioxide 17 mmol/L (22-30); Chloride 105 mmol/L (98-107); Estimated CRCL calculation 113 ml/min; Estimated Glomerular Filt Rate > 60; Glucose 200 mg/dL (65-110); Sodium 132 mmol/L (137-145)
[2020-11-15 14:26] LABS: Glucose Point of Care 193 mg/dl (65-105)
[2020-11-15 15:13] LABS: Glucose Point of Care 172 mg/dl (65-105)
[2020-11-15] MEDS: SODIUM CHLORIDE 0.9% IV 1,000 ML 100 ML IV CONT (15:27)
[2020-11-15] MEDS: INSULIN GLARGINE (*BKC) 100 UNITS/ML 20 UNITS SUB-Q (15:28)
[2020-11-15] MEDS: INSULIN ASPART (*BKC) 100 UNITS/ML SUB-Q ×2 (15:49→18:30)
[2020-11-15 18:30] LABS: Glucose Point of Care 214 mg/dl (65-105)
[2020-11-15] MEDS: metroNIDAZOLE 70 GM VAG GEL.W.APPL 1 APPFUL VAGINAL (21:04)
[2020-11-15 21:09] LABS: Glucose Point of Care 243 mg/dl (65-105)
[2020-11-16] VITALS (7 sets, daily range): BP systolic 105–141; BP diastolic 43–91; PULSE 72–100; RESP 12–17; TEMP 36.1–36.6; O2SAT 100
[2020-11-16] MEDS: SODIUM CHLORIDE 0.9% IV 1,000 ML 100 ML IV CONT ×2 (00:22→12:31)
[2020-11-16 05:23] LABS: Hematocrit 32.3 % (37.0-47.0); Hemoglobin 10.4 g/dL (12.0-15.0); Mean Corpuscular HGB Conc 32.2 g/dl (32-36); Mean Corpuscular Hemoglobin 31.7 pg (26-34); Mean Corpuscular Volume 98.5 fl (80-100); Mean Platelet Volume 10.4 fl (7.4-10.4); Platelet Count Result 199 k/mm3 (150-375); Red Blood Count 3.28 M/mm3 (4.2-5.4); Red Cell Distribution Width 13.2 % (11.5-14.5); White Blood Count 7.7 K/mm3 (4.5-10.0)
[2020-11-16 05:38] LABS: Alanine Aminotransferase 20 U/L (4-35); Alkaline Phosphatase 51 U/L (38-126); Anion Gap 3 mmol/L (8-16); Aspartate Amino Transferase 23 U/L (14-36); Bilirubin,Total 0.5 mg/dL (0.2-1.3); Blood Urea Nitrogen 16 mg/dL (7-17); Calcium 7.9 mg/dL (8.4-10.2); Carbon Dioxide 22 mmol/L (22-30); Chloride 109 mmol/L (98-107); Estimated CRCL calculation 116 ml/min; Estimated Glomerular Filt Rate > 60; Glucose 184 mg/dL (65-110); Magnesium 1.8 mg/dL (1.6-2.3); Phosphorus 2.6 mg/dL (2.5-4.5); Sodium 134 mmol/L (137-145)
[2020-11-16 07:49] LABS: Glucose Point of Care 165 mg/dl (65-105)
--- NOTE | 2020-11-16 08:23 | WPDINTPN ---
Progress Note: A&P Assessment and Plan (1) DKA, type 1: Code(s): E10.10 - Type 1 diabetes mellitus with ketoacidosis without coma Status: Acute Assessment and Plan: patient was started on IV fluid and insulin infusion anion gap has closed and patient has been transition to subcutaneous insulin now she is on Lantus and sliding scale along with meal insulin increase Lantus from 25 (2) Nausea & vomiting: Qualifiers: Vomiting Intractability: non-intractable Vomiting type: unspecified Qualified Code(s): R11.2 - Nausea with vomiting, unspecified Code(s): R11.2 - Nausea with vomiting, unspecified Status: Acute Assessment and Plan: resolved. she has orders for p.r.n. Zofran (3) Bacterial vaginosis: Code(s): N76.0 - Acute vaginitis; B96.89 - Other specified bacterial agents as the cause of diseases classified elsewhere Status: Acute Assessment and Plan: continue Flagyl Additional Plan DVT prophylaxis - SCDs Nutrition - diabetic diet Code Status - Full Code transfer out of ICU today Subjective Date/time seen: 11/16/20 08:23 overnight events reviewed. Patient asymptomatic this morning and feels better. Denies any nausea vomiting abdominal pain. only discomfort she has is from the IV in her arm. Patient denies fever, chest pain, shortness of breath, cough, nausea vomiting, abdominal pain,, diarrhea, headache or constipation. all the systems were reviewed and were negative. anion gap was closed yesterday and she was transitioned to subcutaneous insulin. She did eat her dinner yesterday Review of Systems Review of Systems: All systems reviewed & are unremarkable except as noted in HPI and below ( HPI) Exam Narrative: Exam Narrative: General: Pt is alert awake and in NAD Lungs/Chest: Trachea central Clear BS B/L, No crackles or wheezing. Cardiac: RRR. Normal S1 S2. No murmurs Circulation: Pedal pulses are intact and symmetrical. Abdomen: Normal bowel sounds.. Soft. NT. ND. Extremities: No clubbing, cyanosis or edema. Warm : Mcdonough in place Neurologic: alert awake, alert oriented x3 Follows commands. Moves all 4 extremities PERRL Skin: No Rash Objective Data Vital Signs Vital Signs: Vital Signs - 24 hr 11/15/20 09:00 11/15/20 10:29 11/15/20 12:00 Temperature 36.5 C Pulse Rate 120 H 123 H 106 H Respiratory Rate 20 18 18 Blood Pressure 102/62 98/70 L 108/46 L Pulse Oximetry 100 100 100 11/15/20 14:00 11/15/20 16:00 11/15/20 18:00 Temperature Pulse Rate 106 H 108 H 100 Respiratory Rate 20 18 18 Blood Pressure 103/51 L 90/47 L 92/61 L Pulse Oximetry 100 100 11/15/20 19:49 11/15/20 20:00 11/15/20 22:00 Temperature 36.9 C Pulse Rate 101 H 107 H 95 Respiratory Rate 15 18 Blood Pressure 96/42 L 95/36 L Pulse Oximetry 100 100 11/16/20 00:00 11/16/20 02:00 11/16/20 04:00 Temperature 36.4 C 36.4 C Pulse Rate 92 88 96 Respiratory Rate 17 17 12 Blood Pressure 117/45 L 111/43 L 105/55 L Pulse Oximetry 100 100 100 11/16/20 05:57 11/16/20 08:00 Temperature 36.6 C Pulse Rate 79 100 Respiratory Rate 14 12 Blood Pressure 110/71 Pulse Oximetry 100 100 Intake/Output Intake/Output: Intake & Output 11/13/20 11/14/20 11/15/20 11/16/20 23:59 23:59 23:59 23:59 Intake Total 3778 1150 Output Total 450 Balance 3328 1150 Meds/Results Medications: Active Medications Generic Name Dose Route Start Last Admin Trade Name Freq PRN Reason Stop Dose Admin Dextrose 12.5 gm 11/15/20 08:47 Dextrose 50% 25 Gm/50 Ml Syringe IV PUSH PRN PRN Hypoglycemia Protocol Enoxaparin Sodium 40 mg 11/16/20 09:00 Enoxaparin 40 Mg/0.4 Ml Syringe SUB-Q DAILY DESHAWN Glucagon 1 mg 11/15/20 08:47 Glucagon For Inj 1 Mg Vial IM PRN PRN Hypoglycemia Protocol Glucose 15 gm 11/15/20 08:47 Glucose Oral Gel 15 Gm Of Glucse In 37.5 Gm Tube PO PRN PRN
[2020-11-16] MEDS: INSULIN ASPART (*BKC) 100 UNITS/ML SUB-Q ×5 (08:42→17:52)
[2020-11-16] MEDS: INSULIN GLARGINE (*BKC) 100 UNITS/ML 25 UNITS SUB-Q (08:42)
--- NOTE | 2020-11-16 11:02 | PC.NURSE ---
This patient, Mariaa Cameron, was transferred to [[address] [place] [address]] on 11/16/20 at 1020. Personal belongings sent with patient. Report given to [gregoria shah ]. Appropriate documentation sent with patient.
[2020-11-16 12:22] LABS: Glucose Point of Care 280 mg/dl (65-105)
--- NOTE | 2020-11-16 17:37 | PM.IMPN ---
Progress Note: A&P Assessment and Plan (1) DKA, type 1: Code(s): E10.10 - Type 1 diabetes mellitus with ketoacidosis without coma Status: Acute Assessment and Plan: The patient states that she sees an conservation educator at [facility]. The patient stated that she thinks there was something wrong with her insulin pump. Patient stated she has not had a DKA episode in several years. The patient's A1c was listed as 10.1 this admission. Her blood sugar was 485 when she initially came in it is in the 170s now. Anion gap was 17 when she came in the hospital. We will get conservation educator involved. Patient denies having any complications from her diabetes type 1. She denies retinopathy or nephropathy or any vasculopathy. Once her anion gap closes we will be able to give her Lantus and P to her. Will need to do sliding scale insulin until she is able to get her Insulin pump from home. Continue with DKA protocol Anion gap closed and switch to Lantus adjusted the dose to 25 units in the morning along with Humalog - insulin pump on hold Discussed all the options for discharge Will keep on her on Lantus and Humalog will check with the pharmacy for coverage She will go back to her conservation educator to check her insulin pump and get switched over to the pump (2) Nausea & vomiting: Qualifiers: Vomiting Intractability: non-intractable Vomiting type: unspecified Qualified Code(s): R11.2 - Nausea with vomiting, unspecified Code(s): R11.2 - Nausea with vomiting, unspecified Status: Acute Assessment and Plan: Patient was given Zofran and IV fluids in the emergency room. She was also given Benadryl which she stated helped her. She denies any further nausea vomiting at this time. This is now resolved Eating and drinking okay so will stop her fluids (3) Bacterial vaginosis: Code(s): N76.0 - Acute vaginitis; B96.89 - Other specified bacterial agents as the cause of diseases classified elsewhere Status: Acute Assessment and Plan: patient has been on p.o. Flagyl which can cause some nausea vomiting and even pancreatitis. She has already completed the course She had on is on Flagyl with sign of cream which will be continued while in the hospital stay Subjective Date/time seen: 11/16/20 17:37 Interval history: doing very well. Does not recall any problem with her insulin pump. she just recently started the pump. No fever chills she was having bacterial vaginosis symptoms prior to her blood sugar being elevated. She denies any nausea vomiting abdominal pain Review of Systems Review of Systems: All systems reviewed & are unremarkable except as noted in HPI and below Exam Narrative: Exam Narrative: GENERAL: The patient is well developed, not in acute distress HEENT: Nonicteric sclerae, PERRLA, EOMI. Oropharynx clear. Moist mucous membranes. Conjunctivae appear well perfused. CHEST: Chest wall is nontender. HEART: Regular rate and rhythm without murmur, rubs, or gallops LUNGS: Clear to auscultation bilaterally. no respiratory distress ABDOMEN: Soft, positive bowel sounds, non-tender, no organomegaly. SKIN: No rash, no excessive bruising, petechiae, or purpura. NEUROLOGIC: Cranial nerves II-XII intact, alert and oriented x 3, no gross motor deficits EXTREMITIES: no edema, cyanosis or clubbing Objective Data Vital Signs Vital Signs: Vital Signs - 24 hr 11/15/20 18:00 11/15/20 19:49 11/15/20 20:00 Temperature 98.4 F Pulse Rate 100 101 H 107 H Respiratory Rate 18 15 Blood Pressure 92/61 L 96/42 L Pulse Oximetry 100 100 11/15/20 22:00 11/16/20 00:00 11/16/20 02:00 Temperature 97.6 F Pulse Rate 95 92 88 Respiratory Rate 18 17 17 Blood Pressure 95/36 L 117/45 L 111/43 L Pulse Oximetry 100 100 100 11/16/20 04:00 11/16/20 05:57 11/16/20 08:00 Temperature 97.6 F 97.8 F Pulse Rate 96 79 93 Respiratory Rate 12 14 12 Blood Pressure 105/55 L 110/71 P
[2020-11-16] MEDS: ACETAMINOPHEN 325 MG TABLET 650 MG PO (19:50)
[2020-11-16 20:43] LABS: Glucose Point of Care 161 mg/dl (65-105)
[2020-11-16] MEDS: metroNIDAZOLE 70 GM VAG GEL.W.APPL 1 APPFUL VAGINAL (22:33)
[2020-11-17 03:49] LABS: Glucose Point of Care 207 mg/dl (65-105)
[2020-11-17 06:00] VITALS: BP 133/71; PULSE 60; RESP 16; TEMP 36.1; O2SAT 100
[2020-11-17] MEDS: INSULIN ASPART (*BKC) 100 UNITS/ML SUB-Q (09:19)
[2020-11-17] MEDS: INSULIN GLARGINE (*BKC) 100 UNITS/ML 25 UNITS SUB-Q (09:20)
[2020-11-17] MEDS: ENOXAPARIN 40 MG/0.4 ML SYRINGE SUB-Q (09:23)
[2020-11-17 09:28] LABS: Glucose Point of Care 179 mg/dl (65-105)
--- NOTE | 2020-11-17 10:38 | PM.DS ---
DS: Admitting Diagnosis Admitting Diagnosis Admitting Diagnosis: DKA DS: Discharge Diagnosis Discharge Diagnosis (1) Bacterial vaginosis: Code(s): N76.0 - Acute vaginitis; B96.89 - Other specified bacterial agents as the cause of diseases classified elsewhere Status: Acute (2) DKA, type 1: Code(s): E10.10 - Type 1 diabetes mellitus with ketoacidosis without coma Status: Acute (3) Nausea & vomiting: Qualifiers: Vomiting Intractability: non-intractable Vomiting type: unspecified Qualified Code(s): R11.2 - Nausea with vomiting, unspecified Code(s): R11.2 - Nausea with vomiting, unspecified Status: Acute (4) Acute hyperglycemia: Code(s): R73.9 - Hyperglycemia, unspecified Status: Acute DS: Summary Hospital Course Hospital Course: This is a 25-year-old female patient who has a history of diabetes type 1. The patient typically have an insulin pump but she is not sure what happened with her pump. The patient also has a [employer]EX[employer] but that has not been working because is not keeping a charge. So she has not been using it. The patient states that she does have project systems engineer but then a industrial relations specialist is at [facility] the patient came to the emergency room today for evaluation of hyperglycemia. She tells me that she has only had DKA 1 of the time and has been a year ago. The patient has been vomiting all night and had abdominal pain. The patient think she fell but she does not remember. It was reported that her family member heard her fall. They found her on the floor and she was vomiting and incoherent. She denied any fever or chills. The patient reported that she had some nonradiating midsternal chest pain that occurred prior to the vomiting. The chest pain was resolved when she came to the emergency room. she is currently on antibiotics for bacterial vaginosis but denies any pelvic pain. the patient was noted to be in acute DKA on arrival to the ED was started on DKA protocol with IV fluids, Zofran, IV insulin. the patient was admited to ICU. The patient states that she sees an project systems engineer at [facility]. The patient stated that she thinks there was something wrong with her insulin pump. The patient's A1c was listed as 10.1 this admission. Her blood sugar was 485 when she initially came in. Anion gap was 17 And positive beta hydroxybutyrate. Furthermore when the anion gap close she was switched to Lantus and the dose adjusted 25 minutes units in the morning. Since is unclear whether there is any issue with her pump she is advised to stay on Lantus and Humalog at this time and follow-up with project systems engineer to get her insulin pump checked. She verbalizes understanding and agreeable with the plan. She was discharged on 20/5 units of Lantus every morning at 9:00 a.m. and Humalog 8 units with meals. For her prandial coverages he suggested to continue with what she has done in the past for 1 unit for every 8 g carb along with correctional dose of 1 unit per 50 mg/dL of glucose level. For her bacterial vaginosis she was on Flagyl almost finishing the course. With the nausea and vomiting she was switched to but sign all Flagyl which will be continued for total 5 days. Status at Discharge Functional status at discharge: independent ambulation Overall status at discharge: patient is back to baseline Time Spent with Patient Time attestation: Total time spent providing and/or coordinating discharge services: 40 minutes Exam Narrative: Exam Narrative: GENERAL: The patient is well developed, not in acute distress HEENT: Nonicteric sclerae, PERRLA, EOMI. Oropharynx clear. Moist mucous membranes. Conjunctivae appear well perfused. CHEST: Chest wall is nontender. HEART: Regular rate and rhythm without murmur, rubs, or gallops LUNGS: Clear to auscultation bilaterally. no respiratory distress ABDOMEN: Soft, positive bowel sounds, non-tender, no organomegaly. SKIN: No
--- NOTE | 2020-11-17 11:45 | PCNSR ---
On 11/17/20, the student, Radha Petersen, provided care and completed [facility] documentation on this patient. I have reviewed the student's documentation and agree with the findings.
== END 2020-11-17 11:45 | disposition home or self-care (01) ==
LOC: ANHED 09:51 → ANHICU 10:16 → ANH2MED 11-16 10:42
PROVIDERS: Internal Medicine; Admitting Provider Internal Medicine; Emergency Provider General Practice; Visit Provider Internal Medicine
DX: E10.10 Type 1 diabetes mellitus with ketoacidosis without coma (principal); R11.2 Nausea with vomiting, unspecified; N76.0 Acute vaginitis; B96.89 Other specified bacterial agents as the cause of diseases classified elsewhere; R07.9 Chest pain, unspecified; Z79.4 Long term (current) use of insulin; Z96.41 Presence of insulin pump (external) (internal)
CPT/HCPCS: 36415; 36600; 70450; 71045; 80048; 80053; 81001; 81025; 82010; 82375; 82805; 82948; 83036; 83050; 83605; 83735; 84100; 84484; 85025; 85027; 85380; 85610; 85730; 93005; 96360; 96361; 96365; 96366; 96368; 96372; 96375; 99285; A9270; G0378; J0131; J1200; J1650; J1815; J2405; J2765; J3480; J7030

== ENCOUNTER 2021-01-14 08:51 | Emergency (ER) | payer OTHER, SELFPAY ==
[2021-01-14 09:03] VITALS: BP 124/84; PULSE 76; RESP 16; TEMP 36.6; O2SAT 100
--- NOTE | 2021-01-14 09:59 | ED.GENADULT ---
HPI - General Adult General Chief complaint: Fever Stated complaint: cough/diarrhea/fever/body aches Time Seen by Provider: 01/14/21 09:47 Source: patient and RN notes reviewed Mode of arrival: ambulatory Limitations: no limitations History of Present Illness HPI narrative: Patient presents today complaining of body aches, headache, cough, sore throat, diarrhea, and fatigue. Symptoms began 2 days ago. Patient was exposed to COVID-19 3 days ago. Denies fever, shortness of breath, chest pain. She has been taking emergen-c, Robitussin, NyQuil. History of type 1 diabetes. She has not been vaccinated against the virus. MD complaint: Viral symptoms Related Data Home Medications Medication Instructions Recorded Confirmed Humalog U-100 Insulin 1 sliding scale dose SUBCUT 12/30/19 01/14/21 USEASDIRECTD Humalog U-100 Insulin See Rx Instructions .ROUTE .COMPLEX 11/15/20 01/14/21 Lantus U-100 Insulin See Rx Instructions .ROUTE .COMPLEX 11/15/20 01/14/21 Allergies Allergy/AdvReac Type Severity Reaction Status Date / Time No Known Allergies Allergy Verified 01/14/21 09:15 Review of Systems Review of Systems: CONSTITUTIONAL: Denies fever, chills, or sweats.+ Body aches, fatigue EYES: Denies visual changes, redness, or discharge. ENT: Denies rhinorrhea, congestion, otalgia. +sore throat CARDIOVASCULAR: Denies chest pain, palpitations, or edema. RESPIRATORY: Denies dyspnea. +cough GASTROINTESTINAL: Denies abdominal pain, nausea, vomiting. +diarrhea GENITOURINARY: Denies dysuria or hematuria. SKIN: Denies rash, itching, or wounds. MUSCULOSKELETAL: Denies back pain, joint pain, or myalgia. NEUROLOGIC: Denies numbness, tingling, or weakness.+ Headache PSYCH: Denies depression or anxiety. [facility] Past Medical History Medical History Diabetes mellitus type 1 diabetes insulin-dependent. Diagnosed at the age of 13 Surgical History Surgical History History of tonsillectomy Family History Family History Grandparent Diabetes mellitus Other Diabetes mellitus Other Cerebrovascular accident Mother Hypertension Sibling Eczema Father Gunshot injury from gunshot injury Social History Social History Social History: the patient has no children and she works at [employer] in [place]. She does not have a durable power supervisor pipeline for healthcare. but stated that she would like to choose her mother as her durable power supervisor pipeline. She does not smoke cigarettes or use any illicit drugs. She occasionally uses alcohol. She desires to be a full code She does occasionally smoke marijuana. Smoking status: Never smoker Alcohol intake: never Drinks per week: 3 Alcohol use details: Social Substance use: unknown Substance use type: marijuana Gender identity (if verbalized by the patient): Female Spiritual care concerns: No Comments At time of signature, I have reviewed and agree with nursing past medical, surgical, social and family history unless otherwise noted. Please see nursing chart for further information. There is no relevant family history pertinent to the presenting complaint Exam Narrative: GENERAL: Mildly ill-appearing, well-nourished, and in no acute distress. HEAD: Normocephalic, atraumatic. EYES: EOMI. No redness or drainage. Conjunctivae normal. ENT: Mucous membranes pink and moist. Nares congested. No rhinorrhea. TMs normal bilaterally. Throat normal. Uvula midline. NECK: Normal AROM. Supple. No lymphadenopathy. CHEST: No respiratory distress. Clear to auscultation. HEART: Regular rate and rhythm. No murmur appreciated. Normal peripheral pulses. ABDOMEN: Soft, nontender, nondistended, normal active bowel sounds. MUSCULOSKELETAL
[2021-01-14 10:22] VITALS: RESP 16
== END 2021-01-14 10:12 | disposition home or self-care (01) ==
PROVIDERS: Emergency Provider Nurse Practitioner
DX: U07.1 COVID-19 (principal); E11.9 Type 2 diabetes mellitus without complications; Z79.4 Long term (current) use of insulin
CPT/HCPCS: 87426; 99213; C9803; G0463

== ENCOUNTER 2021-01-17 14:50 | Emergency (ER) | payer OTHER, SELFPAY ==
[2021-01-17] VITALS (31 sets, daily range): BP systolic 99–125; BP diastolic 64–93; PULSE 57–89; RESP 11–21; TEMP 36.3; O2SAT 95–100
--- NOTE | ~2021-01-17 | XR_ITS ---
XR chest 1V portable DATE: 01/17/2021 15:33 INDICATION: Covid-positive January 14. Cough. Syncope. TECHNIQUE: Portable upright AP chest COMPARISON: 11/15/2020 AP chest FINDINGS: Normal heart size. No hilar or mediastinal enlargement. No pulmonary infiltrate or consolid ation, pleural effusion or pulmonary vascular congestion or pneumothorax. IMPRESSION: No active cardiopulmonary disease Reviewed, dictated and finalized at location [facility].
--- NOTE | 2021-01-17 15:03 | ECG_ITS ---
Measurements Intervals [place] Rate: 65 P: 61 GA: 151 QRS: 14 QRSD: 85 T: 3 QT: 443 QTc: 463 Interpretive Statements SINUS RHYTHM POSSIBLE LEFT ATRIAL ENLARGEMENT BORDERLINE T WAVE ABNORMALITY- ANT/INF LEADS BORDERLINE ECG Electronically Signed On 01-17-2021 20:11:19 CDT by Thierno Garay D.O.
--- NOTE | 2021-01-17 15:34 | ED.SYNCOPE ---
HPI - Syncope General Chief Complaint: Syncope Stated Complaint: LIP LAC, FALL Time Seen by Provider: 01/17/21 14:57 Source: patient, RN notes reviewed and old records reviewed Mode of arrival: ambulatory Limitations: no limitations History of Present Illness HPI narrative: This is a 25 year old female with DMI who presents for evaluation of a syncopal episode. Patient states she has been dealing with cough, fatigue, body aches and diarrhea for 3-4 days. She was found to have COVID 3 days ago . Today she reports she developed this warm feeling with dizziness and next thing she knew she passed out. She cut her lip on the toilet. She also complaints her blood sugar has been running in 300s today. She had nausea and vomiting after her syncopal episode today. She denies headache, neck pain or dizziness currently. She denies shortness of breath or chest pain. She also denies abdominal pain. Related Data Home Medications Medication Instructions Recorded Confirmed Humalog U-100 Insulin 1 sliding scale dose SUBCUT 12/30/19 01/14/21 USEASDIRECTD Humalog U-100 Insulin See Rx Instructions .ROUTE .COMPLEX 11/15/20 01/14/21 Allergies Allergy/AdvReac Type Severity Reaction Status Date / Time No Known Allergies Allergy Verified 01/17/21 15:09 Review of Systems Review of Systems: All systems reviewed & are unremarkable except as noted in HPI and below PMFSH Past Medical History Medical History Diabetes mellitus type 1 diabetes insulin-dependent. Diagnosed at the age of 13 Surgical History Surgical History History of tonsillectomy Family History Family History Grandparent Diabetes mellitus Other Diabetes mellitus Other Cerebrovascular accident Mother Hypertension Sibling Eczema Father Gunshot injury from gunshot injury Social History Social History Social History: the patient has no children and she works at [employer] in [place]. She does not have a durable power litigation attorney for healthcare. but stated that she would like to choose her mother as her durable power litigation attorney. She does not smoke cigarettes or use any illicit drugs. She occasionally uses alcohol. She desires to be a full code She does occasionally smoke marijuana. Smoking status: Never smoker Alcohol intake: never Drinks per week: 3 Alcohol use details: Social Substance use: unknown Substance use type: marijuana Gender identity (if verbalized by the patient): Female Spiritual care concerns: No Exam Const: General: alert and ill appearing Orientation/consciousness: patient oriented x3 HENMT: Head: normocephalic and atraumatic Face and sinus: face symmetric Mouth: Yes other (lower lip with small stellate laceration inside mucosa) Teeth and gingiva: dentition normal and gingiva normal Throat: posterior oropharynx normal, tonsils normal and uvula midline Eyes: Pupils: Equal, round and reactive pupils present EOM: EOMs intact bilaterally Neck: Neck: normal visual inspection Chest: Chest palpation & inspection: normal inspection of the chest Resp: Effort & Inspection: normal respiratory effort and no retractions Auscultation: clear to auscultation bilaterally Cardio: Rate: regular rate Rhythm: regular rhythm Heart sounds: no murmurs GI: GI Palp: Yes Soft to palpation, No Tenderness to palpation present (GI), No Guarding due to palpation present (GI), No Rigid due to palpation and Yes No hepatosplenomegaly present Skin: General skin exam: normal color Other: small 1 cm linear superficial laceration on chin. Neuro: General: patient oriented x3, moves all extremities and CN's II-XI intact bilaterally Extrem: General: normal to inspection
[2021-01-17] MEDS: SODIUM CHLORIDE 0.9% IV 1,000 ML 999 ML IV CONT ×2 (15:57→17:24)
[2021-01-17] MEDS: ONDANSETRON INJ 4 MG/2 ML VIAL IV PUSH (15:57)
[2021-01-17 16:05] LABS: Hematocrit 39.2 % (37.0-47.0); Hemoglobin 12.5 g/dL (12.0-15.0); Mean Corpuscular HGB Conc 31.9 g/dl (32-36); Mean Corpuscular Hemoglobin 31.7 pg (26-34); Mean Corpuscular Volume 99.5 fl (80-100); Mean Platelet Volume 10.7 fl (7.4-10.4); Platelet Count Result 164 k/mm3 (150-375); Red Blood Count 3.94 M/mm3 (4.2-5.4); Red Cell Distribution Width 12.4 % (11.5-14.5); White Blood Count 2.9 K/mm3 (4.5-10.0)
[2021-01-17 16:18] LABS: D Dimer 0.29 ug/mL (<0.48)
[2021-01-17 16:19] LABS: Beta-Hydroxybutyrate/Acetoacetate 0.16 mmol/L (0.02-0.27)
[2021-01-17 16:21] LABS: Alanine Aminotransferase 19 U/L (4-35); Albumin Level 4.1 g/dL (3.5-5.1); Alkaline Phosphatase 84 U/L (38-126); Anion Gap 7 mmol/L (8-16); Aspartate Amino Transferase 32 U/L (14-36); Bilirubin,Total 0.4 mg/dL (0.2-1.3); Blood Urea Nitrogen 15 mg/dL (7-17); CRP < 0.5 mg/dL (<1.0); Calcium 8.9 mg/dL (8.4-10.2); Carbon Dioxide 31 mmol/L (22-30); Chloride 100 mmol/L (98-107); Estimated CRCL calculation 112 ml/min; Estimated Glomerular Filt Rate > 60; Glucose 264 mg/dL (65-110); Potassium 4.5 mmol/L (3.4-5.0); Sodium 138 mmol/L (137-145)
[2021-01-17 16:28] LABS: Lymphocytes Absolute Manual 1.18 K/mm3 (1.1-4.5); Monocytes Absolute Manual 0.11 K/mm3 (0.1-0.90); Monocytes Percent Manual 4 % (3-9); Neutrophils Percent Manual 55 % (46-73); Total Cells Counted 100
[2021-01-17 16:29] LABS: Platelet Estimate Adequate (Adequate)
[2021-01-17 16:38] LABS: Add Urine Microscopic? YES; Appearance Urine Clear (Clear); Bacteria Urine Trace /hpf; Bilirubin Urine Negative (Negative); Blood Urine Negative (Negative); Color Urine Yellow (Yellow); Glucose Urine UA 2+ mg/dL (Negative); Ketones Urine Negative (Negative); Leukocyte Esterase Ur Negative LEU/UL (Negative); Mucus Urine Rare /lpf; Nitrate Urine Negative (Negative); Protein Urine 2+ mg/dL (Negative); RBC Urine 0-2 /hpf (0-2); Squamous Epithelial Cell Urine Many /hpf (Few); Urobilinogen Urine Negative mg/dL (<2.0)
[2021-01-17 16:51] LABS: Specific Grav Ur 1.036 (1.001-1.035)
[2021-01-17 16:51] LABS: Fractional Inspired Oxygen 21 %; HCO3 VBG 29.9 mEq/l (24.0-30.0); PCO2 VBG 62.5 mmHg (42.0-48.0); pH VBG 7.298 (7.300-7.400)
[2021-01-17 16:53] LABS: Device ROOM AIR; PO2 VBG 20.3 mmHg (35.0-45.0)
[2021-01-17 18:13] LABS: Glucose Point of Care 254 mg/dl (65-105)
[2021-01-17] MEDS: IBUPROFEN 600 MG TABLET PO (18:59)
== END 2021-01-17 19:55 | disposition home or self-care (01) ==
PROVIDERS: Emergency Provider General Practice
DX: U07.1 COVID-19 (principal); R55 Syncope and collapse; E10.65 Type 1 diabetes mellitus with hyperglycemia; S01.81XA Laceration without foreign body of other part of head, initial encounter; Z79.4 Long term (current) use of insulin; W18.12XA Fall from or off toilet with subsequent striking against object, initial encounter; R94.31 Abnormal electrocardiogram [ECG] [EKG]
CPT/HCPCS: 12011; 36415; 71045; 80048; 80076; 81001; 81025; 82010; 82803; 82948; 83605; 83735; 85025; 85380; 86140; 93005; 96361; 96374; 99284; A9270; J2405; J7030

== ENCOUNTER 2021-01-23 12:40 | Emergency (ER) | payer OTHER, SELFPAY ==
[2021-01-23 13:18] VITALS: BP 124/78; PULSE 79; RESP 16; TEMP 36.9; O2SAT 100
--- NOTE | 2021-01-23 16:43 | ED.GENADULT ---
HPI - General Adult General Chief complaint: Dental/Oral <Isamar Berrios PA-C - Last Filed: 01/23/21 16:48> Stated complaint: ? infection inside mouth <Isamar Berrios PA-C - Last Filed: 01/23/21 16:48> Time Seen by Provider: 01/23/21 15:20 <Isamar Berrios PA-C - Last Filed: 01/23/21 16:48> Source: patient <BRAYDEN Coley Last Filed: 01/23/21 16:48> Mode of arrival: ambulatory <BRAYDEN Coley Last Filed: 01/23/21 16:48> Limitations: no limitations <BRAYDEN Coley Last Filed: 01/23/21 16:48> History of Present Illness HPI narrative: Patient with diabetes presents with brief reevaluation of wounds to the inside of her lower lip. Patient states that she has been using antiseptic mouthwash provided at her previous visit. Patient states that she noticed some green discoloration coming from the site that she wanted to have it evaluated. Patient denies fever, chills, nausea, vomiting, diarrhea or any other symptoms <Isamar Berrios PA-C - Last Filed: 01/23/21 16:48> Related Data Home medications: Home Medications Medication Instructions Recorded Confirmed Humalog U-100 Insulin 1 sliding scale dose SUBCUT 12/30/19 01/14/21 USEASDIRECTD Humalog U-100 Insulin See Rx Instructions .ROUTE .COMPLEX 11/15/20 01/14/21 <BRAYDEN Coley Last Filed: 01/23/21 16:48> Allergies/adverse reactions: Allergies Allergy/AdvReac Type Severity Reaction Status Date / Time No Known Allergies Allergy Verified 01/23/21 15:16 <Isamar Berrios PA-C - Last Filed: 01/23/21 16:48> Review of Systems Review of Systems: CONSTITUTIONAL: Denies fever, chills, or sweats. EYES: Denies visual changes, redness, or discharge. ENT: Denies rhinorrhea, congestion, sore throat, or otalgia. CARDIOVASCULAR: Denies chest pain, palpitations, or edema. RESPIRATORY: Denies cough or dyspnea. GASTROINTESTINAL: Denies abdominal pain, nausea, vomiting, or diarrhea. GENITOURINARY: Denies dysuria or hematuria. SKIN: Reports oral wound denies rash or itching. MUSCULOSKELETAL: Denies back pain, joint pain, or myalgia. NEUROLOGIC: Denies headache, numbness, dizziness, or weakness. PSYCHIATRIC: Denies anxiety or depression. <Isamar Berrios PA-C - Last Filed: 01/23/21 16:48> PMFSH Past Medical History Medical History: Medical History Diabetes mellitus type 1 diabetes insulin-dependent. Diagnosed at the age of 13 <Isamar Berrios PA-C - Last Filed: 01/23/21 16:48> Surgical History Surgical History: Surgical History History of tonsillectomy <Isamar Berrios PA-C - Last Filed: 01/23/21 16:48> Family History Family History: Family History Grandparent Diabetes mellitus Other Diabetes mellitus Other Cerebrovascular accident Mother Hypertension Sibling Eczema Father Gunshot injury from gunshot injury <Isamar Berrios PA-C - Last Filed: 01/23/21 16:48> Social History Social History: Social History Social History: the patient has no children and she works at [employer] in [place]. She does not have a durable power state's attorney for healthcare. but stated that she would like to choose her mother as her durable power state's attorney. She does not smoke cigarettes or use any illicit drugs. She occasionally uses alcohol. She desires to be a full code She does occasionally smoke marijuana. Smoking status: Never smoker Alcohol intake: never Drinks per week: 3 Alcohol use details: Social Substance use: unknown Substance use type: marijuana Gender identity (if verbalized by the patient): Female Spiritual care concerns: No <Isamar Berrios PA-C - Last Filed: 01/23/21 16:48> Exam Narrative: GEN
[2021-01-23 17:12] VITALS: BP 123/88; PULSE 79; RESP 16; O2SAT 100
== END 2021-01-23 17:14 | disposition home or self-care (01) ==
PROVIDERS: Emergency Provider Emergency Medicine
DX: S01.502A Unspecified open wound of oral cavity, initial encounter (principal); E10.9 Type 1 diabetes mellitus without complications; Z79.4 Long term (current) use of insulin; X58.XXXA Exposure to other specified factors, initial encounter
CPT/HCPCS: 99283

== ENCOUNTER → 2022-01-08 08:57 | Outpatient (CLI) | payer OTHER, SELFPAY ==
--- NOTE | ~2022-01-08 | US_ITS ---
US breast BI complete DATE: 01/08/2022 09:23 INDICATION: Bilateral lumpy breast examination by referring physician TECHNIQUE: Real-time imaging of both complete breasts including all 4 quadrants and subareolar areas in addition to the axillary areas COMPARISON: None FINDINGS: No suspicious mass, shadowing, cyst or other significant sonographic abnormality. IMPRESSION: BI-RADS Category 1: Negative Reviewed, dictated and finalized at [facility]. Reviewed, dictated and finalized at location A.
== END ==
PROVIDERS: PCP Nurse Practitioner; Visit Provider Nurse Practitioner
DX: N63.20 Unspecified lump in the left breast, unspecified quadrant (principal)
CPT/HCPCS: 76641

== ENCOUNTER 2024-06-07 03:42 | Emergency (ER) | payer OTHER, SELFPAY ==
[2024-06-07 03:42] VITALS: BP 139/90; PULSE 70; RESP 12; O2SAT 100
--- NOTE | 2024-06-07 03:47 | ECG_ITS ---
Test Date: 2024-06-07 03:49:45 Measurements Intervals [place] Rate: 67 P: 55 DC: 153 QRS: 20 QRSD: 90 T: 11 QT: 404 QTc: 428 Interpretive Statements SINUS RHYTHM NONSPECIFIC T-WAVE ABNORMALITY- ANT/INF LEADS BORDERLINE ECG No previous ECG available for comparison Electronically Signed On 06-07-2024 06:18:34 DOMESTIC LAUNDRY WORKER by Thierno Garay D.O.
[2024-06-07 03:50] LABS: Glucose Point of Care 353 mg/dl (65-105)
[2024-06-07 04:18] LABS: Basophils Percent Auto 0.7 % (0.2-1.2); Eosinophils Absolute Auto 0.1 K/mm3 (0-0.3); Eosinophils Percent Auto 1.3 % (0-4.4); Hemoglobin 12.2 g/dL (12.0-15.0); Immature Granulocyte Absolute 0.02 K/mm3 (0.00-0.031); Immature Granulocyte Percent A 0.4 % (0-0.5); Lymphocytes Absolute Auto 1.95 K/mm3 (0.9-3.2); Lymphocytes Percent Auto 42.6 % (18.3-44.2); Mean Corpuscular Hemoglobin 31.9 pg (26-34); Mean Corpuscular Volume 96.9 fl (80-100); Mean Platelet Volume 10.5 fl (7.4-10.4); Monocytes Absolute Auto 0.3 K/mm3 (0.1-0.6); Monocytes Percent Auto 6.6 % (2.6-8.5); Neutrophils Absolute Auto 2.2 K/mm3 (1.3-6.7); Neutrophils Percent Auto 48.4 % (45.5-73.1); Platelet Count Result 226 k/mm3 (150-375); Red Blood Count 3.82 M/mm3 (4.2-5.4); Red Cell Distribution Width 12.3 % (11.5-14.5); White Blood Count 4.6 K/mm3 (4.5-10.0)
[2024-06-07 04:30] LABS: Alanine Aminotransferase 17 U/L (6-35); Albumin Level 3.9 g/dL (3.5-5.1); Alkaline Phosphatase 79 U/L (38-126); Anion Gap 9 mmol/L (4-12); Aspartate Amino Transferase 20 U/L (14-36); Bilirubin,Total 0.5 mg/dL (0.2-1.3); Blood Urea Nitrogen 16 mg/dL (7-17); Calcium 9.4 mg/dL (8.4-10.2); Carbon Dioxide 26 mmol/L (22-30); Chloride 101 mmol/L (98-107); Estimated CRCL calculation 100 ml/min; Estimated Glomerular Filt Rate > 60; Glucose 334 mg/dL (65-110); Magnesium 1.9 mg/dL (1.6-2.3); Potassium 3.9 mmol/L (3.4-5.0); Sodium 136 mmol/L (137-145)
[2024-06-07 04:35] LABS: Beta-Hydroxybutyrate/Acetoacetate 0.12 mmol/L (0.02-0.27)
[2024-06-07 05:29] LABS: Glucose Point of Care 243 mg/dl (65-105)
[2024-06-07 06:07] LABS: Influenza A QL RT-PCR Negative (Negative); Influenza B QL RT-PCR Negative (Negative); RSV RNA, RT-PCR Negative (Negative); SARS-CoV-2 RNA PCR Negative (Negative)
[2024-06-07 06:37] LABS: Add Urine Microscopic? NO; Appearance Urine Clear (Clear); Bilirubin Urine Negative (Negative); Blood Urine Negative (Negative); Color Urine Yellow (Yellow); Glucose Urine UA 3+ mg/dL (Negative); Ketones Urine Trace mg/dL (Negative); Leukocyte Esterase Ur Negative LEU/UL (Negative); Nitrate Urine Negative (Negative); Protein Urine Negative (Negative); Specific Grav Ur > 1.045 (1.001-1.035); Urobilinogen Urine 0.2 mg/dL (<2.0)
[2024-06-07 06:51] LABS: BEDSIDEPREGUCG Negative (Negative)
[2024-06-07 07:42] LABS: Glucose Point of Care 227 mg/dl (65-105)
[2024-06-07 08:19] LABS: Pregnancy On Board Control Positive; Urine Pregnancy Test Negative
--- OUTSIDE RECORDS SUMMARY | 2024-06-07 08:21 | XMS_ITS | Clinical Summary ---
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 Name Role Phone Tanisha Marsh RO[address] DRIVER Unavailable [phone], Physician Primary Care Provider [phone] Allergies No known active allergies Medications lancets (TRUEPLUS LANCETS) 30 gauge misc checl glucose 4/days 1 Box 5 07/14/19 16 Active blood-glucose meter (TRUETRACK BLOOD GLUCOSE SYSTEM) kit USE DIRECTED 1 kit 3 05/18/19 17 Active blood glucose diagnostic (TRUETEST TEST STRIPS) strip Use to check glucose 3 x daily 100 each 3 11/17/19 17 Active acetone, urine, test (acetone, urine, test) strip Test first AM urine and as directed 100 strip 11 10/04/19 20 Active lancing device with lancets kitIndications:he art failure with reduced ejection fraction 1 Device 3 (three) times a day before meals 200 each 5 04/01/20 20 Active emtricitabine-ten ofovir disoproxil fumerate (TRUVADA) 200-300 mg per tablet emtricitabine 200 mg-tenofovir disoproxil fumarate 300 mg tablet TAKE 1 Tablet BY MOUTH EVERY DAY Active Baqsimi 3 mg/actuation spray,non-aerosol Indications:patie nt with diabetes mellitus at risk of hypoglycemia Administer 1 spray into one nostril as needed (use for severe hypoglycemia requiring the assistance of another.) E10.65 2 each 11 07/27/19 23 Active insulin syringe-needle U-100 1/2 mL 29 syringe Use to inject 4 times daily as directed e10.65 400 each 3 12/17/19 23 Active Dexcom G7 Sensor device 1 Device continuously . Change every 10 days. E11.65 10 each 3 05/18/19 24 Active blood-glucose meter,continuous (Dexcom G7 Radiologist) misc 1 Device continuously To continuously monitor blood sugar e10.65 1 each 1 05/18/19 24 Active LANTUS 100 unit/mL vial for injection INJECT 32 UNITS SUBCUTANEOUSLY ONCE DAILY 30 mL 3 06/20/19 24 Active HumaLOG 100 unit/mL vial for injectionIndicati ons:Type 1 diabetes mellitus with hyperglycemia (HCC) USE 65 UNITS ONCE DAILY IN INSULIN PUMP 20 mL 4 02/13/20 24 Active Active Problems Problem Noted Date Diagnosed Date Type 1 diabetes mellitus with hyperglycemia 08/2019 Assessment & Plan (12/14/2023 3:22 PM CDT): This is a chronic condition which is uncontrolled, not at goal, worsening . Goal is less than 7%. She has decided to return to insulin pump therapy. She would like Inverted Edgei system Personally reviewed most recent A1c - Lab Results Component Value Date HGBA1C 10.9 12/14/2023 Personally reviewed POC blood sugar- not at goal of 80-180 Lab Results Component Value Date POCGLU 424 12/14/2023 Coughing as she stated she just took the inhaled insulin Medication- continue lantus 32 units daily pm, humalog 1units for every 10 carbs and a 1:50 correction. Usual meals time dose is about 12 -15 units at meals. We will switch back to Humalog and stop afrezza Monitor blood sugar continuously with cgm. Encouraged annual eye exam. Monofilament foot exam completed. Protective senses intact eGFR- 123 Kidney function- normal Urine microalbumin/creatinine ratio - at goal. Goal is <30 not treated with YOSEF/ARB. LDL cholesterol not at goal. Not on statin therapy as she has childbearing age Assessment & Plan (08/24/2023 3:12 PM CDT): This is a chronic condition which is not at goal . Goal is less than 7%. Personally reviewed most recent A1c - Lab Results Component Value Date HGBA1C 9.6 08/24/2023 Personally reviewed POC blood sugar- at goal of 80-180 Lab Results Component Value Date POCGLU 166 08/24/2023 Medication- continue lantus 32 units daily pm, humalog 1units for every 10 carbs and a 1:50 correction. Usual meals time dose is about 12 -15 units at meals. Will start afreeza insulin to see if we can get her A1c down Monitor blood sugar 4 times a day. Continuously with cgm. Encouraged annual eye exam. Monofilament foot exam completed. Protective senses intact Personally reviewed CMP eGFR- 123 Kidney function-normal Urine microalbumin/creatinine ratio - at goal. Goal is <30 not treated with YOSEF/ARB B/P today- at goal. Goal is <140/90. Personally reviewed lipid panel. Not at goal. Goal is less than 70. Not on statin therapy due to childbearing age Assessment & Plan (05/18/2023 4:02 PM STROBOSCOPE OPERATOR): This is a chronic condition which is poorly controlled inadequately controlled or out of control improving worsening not at goal of less than 7%. Personally reviewed most recent A1c - Lab Results Component Value Date HGBA1C 9.7 05/18/2023 Personally reviewed POC blood sugar- not at goal 80-180 Lab Results Component Value Date POCGLU 124 05/18/2023 Medication- Continue lantus 32 units daily pm, humalog 1units for every 10 carbs and a 1:50 correction. Usual meals time dose is about 12 -15 units at meals. Monitor blood sugar 4times a day. Encouraged annual eye exam. Monofilament foot exam completed. protective senses intact Personally reviewed CMP eGFR- 124 Kidney function- normal Urine microalbumin/creatinine ratio - at goal <30 not treated with YOSEF/ARB B/P today- at goal of <140/90. Personally reviewed lipid panel. Not at Goal of less than 70. Not on statin therapy. Childbearing age. Assessment & Plan (12/01/2022 3:39 PM CDT): This is a chronic condition which is improving and close to goal of less than 7%. Personally reviewed most recent A1c - Lab Results Component Value Date HGBA1C 7.4 12/01/2022 Personally reviewed POC blood sugar- not at goal 80-180 Lab Results Component Value Date POCGLU 63 12/01/2022 Medication- Continue Medtronic 670 G insulin pump settings were basals: 1.30 unit/hr. IC :9, S 30, active insulin time- 3hrs. Target range [phone], [id number] for insulin pump failure, use lantus 32 units daily pm, humalog 1units for every 10 carbs and a 1:50 correction. Usual meals time dose is about 12 -15 units at meals. Monitor blood sugar continuously with guardian 3 sensor. Encouraged annual eye exam. Monofilament foot exam completed. protective senses intact Personally reviewed CMP eGFR- 124 Kidney function- normal Urine microalbumin/creatinine ratio - at goal <30 not treated with YOSEF/ARB B/P today- at goal of <140/90. Personally reviewed lipid panel. Not at Goal of less than 70. Not on statin therapy, childbearing age Assessment & Plan (07/21/2022 1:43 PM CDT): This is a chronic condition which is poorly controlled inadequately controlled or out of control improving worsening not at goal of less than 7%. Personally reviewed most recent A1c - Lab Results Component Value Date HGBA1C 8.9 07/21/2022 Personally reviewed POC blood sugar- not at goal 80-180 Lab Results Component Value Date POCGLU 167 07/21/2022 Medication- Continue Medtronic pump 670 G insulin pump and Guardian sensor. For pump failure- use lantus 32 units daily pm, humalog 1units for every 10 carbs and a 1:50 correction. Average dose is 12-15 units at meals. Monitor blood sugar 4 times a day. Encouraged annual eye exam. dilated eye appt. - [facility] [place]. Monofilament foot exam completed, protective senses intact. Urine microalbumin/creatinine ratio - <30, normal. not on YOSEF/ARb, at goal <30 Personally reviewed labs: CMP. GFR- 124 Kidney function- normal B/P today- at Goal blood pressure is <140/90. not on YOSEF/ARB Personally reviewed LDL - 128, not on a statin, childbearing age. not at goal of less than 70 No history of macrovascular disease - CVA, [place]. Assessment & Plan (04/21/2022 1:45 PM STROBOSCOPE OPERATOR): This is a chronic condition which is continued uncontrolled type 1 diabetes with hyperglycemia, not at goal, Currently off insulin pump. Personally reviewed A1c decreased to 9.6 % not at goal less than 8% Medication- encouraged to return to Medtronic pump/ sensor. phone numbers provided. continue lantus 32 units daily pm, humalog 1units for every 10 carbs and a 1:50 correction. Average dose is 12-15 units at meals. Monitor blood sugar 4 times a day. Encouraged annual eye exam. dilated eye appt. - [facility] [place]. Monofilament foot exam completed, protective senses intact. Urine microalbumin/creatinine ratio - <30, normal. not on YOSEF/ARb, at goal <30 Personally reviewed labs: BUN, creatinine, GFR- 128 Kidney function- normal B/P today- at Goal blood pressure is <140/90. not on YOSEF/ARB Personally reviewed LDL - 128, not on a statin, childbearing age. not at goal of less than 70 No history of macrovascular disease - [place], [place]. Assessment & Plan (12/22/2021 4:00 PM CDT): This is a chronic condition which is continued, hyperglycemia, not at goal, Currently off insulin pump. Personally reviewed A1c 10.1% not at goal less than 8% Medication- encouraged to return to Medtronic pump/ sensor. continue lantus 32 units daily pm, humalog 1units for every 10 carbs and a 1:50 correction. Average dose is 12 units at meals. Monitor blood sugar 4 times a day. start mickey 2 sensor- ordered Encouraged annual eye exam. dilated eye appt. - [facility] [place]. Monofilament foot exam completed, protective senses intact. Urine microalbumin/creatinine ratio - <30, normal currently not on YOSEF/ARb, at goal <30 Personally reviewed labs: BUN, creatinine, GFR- 128 Kidney function- normal B/P today- 112/64, currently not on YOSEF/ARB Goal blood pressure is <140/90 and as close to 120/80 as possible. Personally reviewed LDL - 128, currently not on a statin, not at goal of less than 70 No history of macrovascular disease - [place], [place]. Assessment & Plan (10/13/2021 12:30 PM CDT): This is a chronic condition which is continued hyperglycemia, not at goal, Currently off insulin pump. Personally reviewed A1c 10% not at goal less than 8% Medication- encouraged to return to Medtronic pump/ sensor. continue lantus 32 units daily pm, humalog 1units for every 10 carbs and a 1:50 correction. Average dose is 12 units at meals. Monitor blood sugar 4 times a day. Encouraged annual eye exam. dilated eye appt. - [facility] [place]. Monofilament foot exam completed, protective senses intact. Urine microalbumin/creatinine ratio - <30, normal currently not on YOSEF/ARb, at goal <30 Personally reviewed labs: BUN, creatinine, GFR- 128 Kidney function- normal B/P today- 112/64, currently not on YOSEF/ARB Goal blood pressure is <140/90 and as close to 120/80 as possible. Personally reviewed LDL - 128, currently not on a statin, not at goal of less than 70 No history of macrovascular disease - [place], [place]. Assessment & Plan (08/28/2021 1:10 PM CDT): This is a chronic condition which is worsening hyperglycemia, not at goal, has not been on insulin pump. Personally reviewed A1c 10% not at goal less than 8% Medication- encouraged to return to Medtronic pump/ sensor. Called [employer]/Marimar Frias to check on Medtronic sensor replacement. Monitor blood sugar 4 times a day. Encouraged annual eye exam. dilated eye appt. - [facility] [place]. Monofilament foot exam completed, protective senses intact. Urine microalbumin/creatinine ratio - <30, normal currently not on YOSEF/ARb, at goal <30 Personally reviewed labs: BUN-8 , creatinine- 0.63 GFR- 128 Kidney function- normal B/P today- 1044/78, currently not on YOSEF/ARB Goal blood pressure is <140/90 and as close to 120/80 as possible. Personally reviewed LDL - 128, currently not on a statin, not at goal of less than 70 No history of macrovascular disease - CV[place], [place]. Assessment & Plan (02/13/2021 1:06 PM CDT): This is a chronic condition which is improving hyperglycemia, not at goal has been back on insulin pump for the last 2 weeks. Personally reviewed A1c 9.3, not at goal less than 8% Medication- encouraged to return to [employer] sensor. Called [employer]/Marimar Frias to check on Medtronic sensor replacement. Monitor blood sugar 4 times a day. Encouraged annual eye exam. dilated eye appt. - [facility] [place]. Monofilament foot exam completed, protective senses intact. Urine microalbumin/creatinine ratio - <30, normal currently not on YOSEF/ARb, at goal <30 Personally reviewed labs: BUN-8 , creatinine- 0.63 GFR- 128 Kidney function- normal B/P today- 94/50, currently not on YOSEF/ARB Goal blood pressure is <140/90 and as close to 120/80 as possible. Personally reviewed LDL - 124, currently not on a statin, not at goal of less than 70 No history of macrovascular disease - [place], [place]. Assessment & Plan (12/03/2020 3:41 PM CDT): This is a chronic condition which is uncontrolled with hyperglycemia, not at goal since removing insulin pump. Personally reviewed A1c 11.3 not at goal less than 8% Medication- encouraged to return to [employer] insulin pump and sensor. instructed to call [employer] induce safety checks with it telephone call Crew. Monitor blood sugar 4 times a day. Encouraged annual eye exam. dilated eye appt. Tomorrow at [facility] [place]. Monofilament foot exam completed, protective senses intact. Urine microalbumin/creatinine ratio - <30, normal currently not on YOSEF/ARb, at goal <30 Personally reviewed labs: (08/16) BUN-8 , creatinine- 0.63 GFR- 128 Kidney function- normal B/P today- 126/70, currently not on YOSEF/ARB Goal blood pressure is <140/90 and as close to 120/80 as possible. Personally reviewed LDL - 124, currently not on a statin, not at goal of less than 70 No history of macrovascular disease - [place], [place]. Assessment & Plan (11/04/2020 5:29 PM CDT): This is a chronic condition which is uncontrolled with hyperglycemia, not at goal since removing insulin pump. Personally reviewed A1c today- 11.3 not at goal less than 8% Personally reviewed blood sugar -365 goal 80-180 Medication- encouraged to return to [employer] insulin pump and sensor. Monitor blood sugar 4 times a day. Encouraged annual eye exam. dilated eye appt. Tomorrow at [facility] [place]. Monofilament foot exam completed, protective senses intact. Urine microalbumin/creatinine ratio - <30, normal currently not on YOSEF/ARb, at goal <30 Personally reviewed labs: (08/16) BUN-8 , creatinine- 0.63 GFR- 128 Kidney function- normal B/P today- 122/68, currently on YOSEF/ARB Goal blood pressure is <140/90 and as close to 120/80 as possible. Personally reviewed LDL - 124, currently not on a statin, not at goal of less than 70 No history of macrovascular disease - [place], [place]. Assessment & Plan (05/13/2020 4:07 PM STROBOSCOPE OPERATOR): This is a chronic condition which is unchanged and not at goal of less than 8% Personally Labs reviewed and insulin pump download Monitor blood sugar per sensor and bolus 4 + times a day. dilated eye exam is needed- encouraged eye exam- Completed at [facility] [place], [place] Monofilament foot exam completed, protective senses intact Urine microalbumin/creatinine ratio - normal (08/28/2019) Normal Kidney function eGRF- 128, BUN- 8, creatinine- 0.63 BP today- 130/72 currently on YOSEF/ARB- at goal of less than 140/90 for a person with diabetes. LDL - 128, currently not on a statin. Encouraged to reduce fast food intake. No history of macrovascular disease - [place], [place]. Paired Guardian sensor to insulin pump, encouraged to return to wearing sensor and return to auto mode. Assessment & Plan (04/01/2020 3:53 PM STROBOSCOPE OPERATOR): This is a chronic condition which is worsening and not at goal of less than &% Labs reviewed. A1c today- increased to 9.2 from 8.7 Monitor blood sugar per sensor and bolus 4 + times a day. dilated eye exam is needed- encouraged eye exam Monofilament foot exam completed, protective senses intact Urine microalbumin/creatinine ratio - normal (08/28/2019) Kidney function eGRF- 128, BUN- 8, creatinine- 0.63 BP today- 118/76, currently on YOSEF/ARB LDL - 128, currently not on a statin. Encouraged to reduce fast food intake. No history of macrovascular disease - [place]. Instructed to return to wearing sensor and return to auto mode. Assessment & Plan (01/01/2020 4:09 PM CDT): This is a chronic condition which is improving, but not at goal. Labs reviewed. A1c today- decreased to 8.7 Monitor blood sugar per sensor and bolus 4 + times a day. dilated eye exam is needed Monofilament foot exam completed, protective senses intact Urine microalbumin/creatinine ratio - normal (08/28/2019) Kidney function eGRF- 128, BUN- 8, creatinine- 0.63 BP today- 134/82, currently on YOSEF/ARB LDL - 128, currently not on a statin No history of macrovascular disease - [place], [place]. Assessment & Plan (10/04/2019 6:16 PM CDT): This is a chronic condition which is improving, but not at goal. Labs reviewed. Medication- insulin infusion per Medtronic 670G insulin pump. Not in auto mode. Surveillance of Diabetes complications dilated eye exam is needed. Please obtain before next appt in 3 months protective sensation to feet intact BP today- 124/84 Lipid panel ordered. No history of macrovascular disease Eczema 07/04/2012 Resolved Problems Problem Noted Date Diagnosed Date Resolved Date Insulin pump titration 08/28/201910/13 Assessment & Plan (10/13/2021 12:28 PM CDT): Insulin pump is off due to insurance issues. Assessment & Plan (08/28/2021 1:13 PM CDT): Medtronic 670G pump is in Manual Mode 100% Pump download obtained and scanned into the record. Settings basal 1.10 unit/hr. IC : 0000-1:9, 0600 -1:10, 2000-9.0 S 35 AI- 3 hrs Total daily dose : 53units Contacted Marimar Squires /[employer] with updated insurance information to resume insulin pump supplies. Encouraged to get back on insulin pump Assessment & Plan (02/13/2021 1:51 PM CDT): Medtronic 670G pump is in Manual Mode 100% Pump download obtained and scanned into the record. Settings basal 1.10 unit/hr. IC : 0000-1:9, 0600 -1:10, 2000-9.0 S 35 AI- 3 hrs Total daily dose : 53units Bolus amount: (43%) 23units/ day / basal amount: (57%) 30 units/day [place] change: every 2.4days, Set change- 2.4days Currently in manual mode Contacted Marimar Squires /[employer] for replacement sensor. Interpretation: Improved set and reservoir changes. will go back to wearing sensor. Improved blood sugars since back on insulin pump Assessment & Plan (12/03/2020 3:41 PM CDT): Currently not take wearing insulin pump after hospital stay with DKA at [facility]. Encouraged put insulin pump back on Assessment & Plan (05/13/2020 4:09 PM STROBOSCOPE OPERATOR): Medtronic 670G pump is in Manual Mode 100% Auto Mode- 0%. Pump download obtained and scanned into the record. Basal at 1.10 units/hr. not wearing sensor - encouraged sensor Sensor Wear: 0% of the time Total daily dose : 44units Bolus amount: 20units/ day / basal amount: 24 units/day [place] change: every 2.6 days, Set change- 2.6 days Manual mode: basals: 1.10 unit/hr. IC : 0000-1:9, 0600 -1:10, 2000-9.0 S 35 Improved set and reservoir changes. States will go back to wearing sensor now that it is properly paired. Assessment & Plan (04/01/2020 3:57 PM STROBOSCOPE OPERATOR): 03/19/2020 to 04/01/2020 Medtronic 670G pump is in Manual Mode 100% Auto Mode- 0%. Pump download obtained and scanned into the record. Basal at 1.10 units/hr. not wearing sensor - encouraged sensor Sensor Wear: 0% of the time Time in range:47% Hypoglycemia:6% 180-250- 19% 250-400-28% Total daily dose : 33units Bolus amount: 13units/ day / basal amount: 20 units/day [place] change: every 6 days, Set change- 3.7 days Manual mode: basals: 1.10 unit/hr. IC : 0000-1:9, 0600 -1:10, 2000-9.0 S 35 Assessment & Plan (01/01/2020 4:13 PM CDT): Currently Medtronic 670G pump is in Manual Mode 66% Auto Mode- 34%. Pump download obtained and scanned into the record. Basal at 1.10 units/hr. wearing sensor Sensor Wear: 66% of the time Time in range:55% Hypoglycemia:3% Total daily dose : 47units Bolus amount: 22units/ day / basal amount: 25 units/day [place] change: 3.3 days Manual mode: basals: 1.10 unit/hr. IC : 0000-1:9, 0600 -1:10, 2000-9.0 S 35 Meet with [employer] for education on [place] insertion set. Assessment & Plan (10/04/2019 2:08 PM CDT): Currently Medtronic 670G pump is in Manual Mode. Pump download obtained and scanned into the record. Basal at 1.20 units/hr. Started wearing sensor on 09/18/2019. Sensor Wear: 67% of the time Time in range:34% Hypoglycemia:38% Total daily dose : 39 units Bolus amount: 21 units/ day / basal amount: 18 units/day [place] change: 3.3 days Manual mode: basals: 1.20 unit/hr. IC : 1:9 S 35 Contact [employer]tr[employer] for auto mode training and switch to auto mode. Assessment & Plan (08/28/2019 3:51 PM CDT): Condition is new Starting settings will be basal rate 5368-3378 1units/hr Bolus Insulin sensitivity factor- 35 Insulin to carb ratio - 9 gm to 1 unit [employer] to adjust as needed Follow up and download pump in one month after starting pump. Diabetic ketoacidosis withou t coma associated with type 1 diabetes mellitus ([facility]/HCC) 08/04/2018 05/13/2020 STD (female) 05/17/2017 04/02/2020 Uncontrolled type 1 diabetes mellitus with hyperglycemia 11/16/2016 08/28/2019 Irregular menstrual cycle 07/04/2012 Candidiasis of vulva and vagina 10/06/2010 04/02/2020 Type 1 diabetes mellitus 12/20/200808/2019 Assessment & Plan (08/28/2019 3:47 PM CDT): Condition is improving, but not at goal Discussed/ordered labs. Eat healthy, include fresh fruits and vegetables daily. Eat no more than 45-60 grams of carbs per meal. Do not eat fried foods more than once per week. Try moving at least a total of 30 minutes/day. This does not have to be done at one time. Start Medtronic Insulin pump after visit with Medtr[employer] senior technical trainer Surgical History Surgery Date Site/Laterality Comments TONSILLECTOMY Medical History Medical History Date Comments Uncontrolled type 1 diabetes mellitus with hyperglycemia ([facility]) 11/16/2016 Type 1 diabetes mellitus ([facility]) 12/20/2008 STI (sexually transmitted infection) gonorrhea, chlamydia, trichomonas Family History Medical History Relation Name Comments No Known Problems Father Hypertension Mother Relation Name Status Comments Father Mother Alive Social History Tobacco Use Types Packs/Day Years Used Date Smoking Tobacco: Never Smokeless Tobacco: Never Tobacco Cessation:Counseling Given: Not Answered Alcohol Use Standard Drinks/Week Comments Yes 1 (1 standard drink = 0.6 oz pur e alcohol) Humiliation, Afraid, Rape, and Kick questionnair e Answer Date Recorded Within the last year, have y ou been afraid of your partner or ex-partner? No 04/02/2020 Within the last year, have y ou been humiliated or emotionally abused in other ways by your partner or ex-partner? No Within the last year, have y ou been kicked, hit, slapped, or otherwise physically hurt by your partner or ex-partner? No 04/02/2020 Within the last year, have y ou been raped or forced to have any kind of sexual activity by your partner or ex-partner? No 04/02/2020 Personal Safety Answer Date Recorded Getting School Help Needed Not on file 04/15 Comments No Sex and Gender Information Value Date Recorded Sex Assigned at Not on file Legal Sex Female 9:15 PM STROBOSCOPE OPERATOR Gender Identity Not on file Sexual Orientation Not on file Obstetrics History Para Term AB IAB SAB Ectopic Multiple Livin g Live Births 0 0 0 0 0 0 0 0 0 0 0 Last Filed Vital Signs Vital Sign Reading Time Taken Comments Blood Pressure 108/70 12/14/2023 2:43 PM CDT Pulse 100 2021 11:58 PM STROBOSCOPE OPERATOR Temperature 36.9 C (98.5 F) 2021 11:58 PM STROBOSCOPE OPERATOR Respiratory Rate 16 2021 11:58 PM STROBOSCOPE OPERATOR Oxygen Saturation 100% 2021 11:58 PM STROBOSCOPE OPERATOR Inhaled Oxygen Concentration - - Weight 77.2 kg (170 lb 3.2 oz) 12/14/2023 2:43 P M CDT Height 157.5 cm (5' 2 ) 12/14/2023 2:43 PM CDT Body Mass Index 31.13 12/14/2023 2:43 PM CDT Plan of Treatment Health Maintenance Due Date Last Done Comments Cervical Cancer Screening 1995 Hepatitis C Screening 1995 Varicella Vaccines (2 of 2 - 2-dose childhood series) 1999 10/10/1996 DTaP/Tdap/Td Vaccine (5 - Tdap) 2006 06/22/1996, 1995, 1995, Additional history exists Regular Well Visit/Exam 18-64 2013 Pneumococcal vaccine <65 (2 of 2 - PCV) 03/04/2016 03/04/2015 Depression Screening 11/16/2017 11/16/2016 Covid-19 Vaccine (3 - 2023-2 5 season) 2024 03/20/2021, 02/18/2021 Influenza Vaccine (#1) 2024 , 03/06/2019, 03/09/2017, Additional history exists Albumin Creatinine Ratio, Urine 06/01/2024 06/01/2023, 04/21/2022, 02/13/2021 Lipid Panel 06/01/2024 06/01/2023, 04/02, 12/22/2021, Additional history exists eGFR 06/01/2024 06/01/2023, 04/02, 03/09/2021, Additional history exists Hemoglobin A1C 06/15/2024 12/14/2023, 08/01, 05/18/2023, Additional history exists Dilated Eye Exam 07/14/2024 07/14/2022, , 10/30/2018, Additional history exists TSH Level 08/30/2024 08/31/2023, 05/0 05/2023, 06/01/2023, Additional history exists Foot Exam 12/13/2024 12/14/2023, 08/01, 05/18/2023, Additional history exists Hepatitis B Screening Completed 1995 , 1995, 1995 HPV Vaccines Completed 01/09/2019, 11/01, 06/21/2017 Procedures Procedure Name Priority Date/Time Associated Diagnosis Comments POCT HEMOGLOBIN A1C Routine 12/14/2023 2 :45 PM CDT Type 1 diabetes mellitus with hyperglycemia (HCC) TSH Routine 08/31/2023 EGFR Routine 06/01/2023 1:03 PM STROBOSCOPE OPERATOR Type 1 diabetes mellitus with hyperglycemia (HCC) LIPID PANEL Routine 06/01/2023 1:03 PM STROBOSCOPE OPERATOR Type 1 diabetes mellitus with hyperglycemia (HCC) ALBUMIN CREATININE RATIO, URINE Routine 06/01/2023 1:03 PM STROBOSCOPE OPERATOR Type 1 diabetes mellitus with hyperglycemia (HCC) DIABETIC EYE EXAM Routine 07/14/2022 HM DIABETES FOOT EXAM Routine 05/20/2017 from Last 3 Months or Most Recently Relevant to Health Maintenance Results * (ABNORMAL) POCT hemoglobin A1c (12/14/2023 2:45 PM CDT) Hemoglobin A1C, POC 10.9 % Blood 12/14/2023 2:45 PM CDT Tanisha Marsh NP POINT OF CARE TEST ORDERABLES F inal Result * TSH (08/31/2023) Scribed TSH 1.22 0.30 - 5.33 mcU/mL EXTERNAL LAB Blood 08/31/2023 Historical Provider LAB BLOOD ORDERABLES Mandie l Result Performing Organization Address City/[facility]/ZIP Co de Phone Number EXTERNAL LAB * eGFR (06/01/2023 1:03 PM STROBOSCOPE OPERATOR) eGFR 123 mL/min/1. 73 m2 MIKE WEBBER ([place]) Comment: Interpretive Data Reference Interval Normal >/= 90 mL/min/1.73m2 Mildly decreased* 60 - 89 mL/min/1.73m2 Mildly to moderately decreased 45 - 59 mL/min/1.73m2 Moderately to severely decreased 30 - 44 mL/min/1.73m2 Severely decreased 15 - 29 mL/min/1.73m2 Kidney Failure < 15 mL/min/1.73m2 *Relative to young adult level Estimated glomerular filtration rate is determined by the 2020 CKD-EPI equation recommended by the National Kidney Foundation (A Unifying Approach to GFR Estimation: Recommendations of the NKF-ASK Task Force on Reassessing the Inclusion of Race in Diagnosing Kidney Disease, JASN 2020). The CKD-EPI equation should not be used for patients with unstable renal function and has not been validated in children and those over 70. Current interpretive data was last reviewed 2021. Blood 06/01/2023 1:03 PM STROBOSCOPE OPERATOR 06/01/2023 1:25 PM STROBOSCOPE OPERATOR Tanisha Marsh NP LAB BLOOD ORDERABLES Final Resu lt MIKE WEBBER ([place]) [address] [facility] Department [place] [address] * Albumin Creatinine Ratio, Urine (06/01/2023 1:03 PM STROBOSCOPE OPERATOR) Albumin Ur <12.0 mg/L MIKE Paredes ([place]) Comment: Interpretive Data No reference range established. Current interpretive data was last revised 2018. Testing performed by: [facility], [address] [place] [address]., [id number] Creatinine Ur 37.0 mg/dL MIKE WEBBER ([place]) Comment: Interpretive Data No reference range established. Current interpretive data was last revised 2018. Testing performed by: [facility], [address] [place] [address]., [id number] Albumin Creatinine Ratio, Ur See Comment 1 - 29 MIKE WEBBER ([place]) Comment: Unable to calculate Testing performed by: [address], [id number] Urine 06/01/2023 1:03 PM STROBOSCOPE OPERATOR 06/01/2023 4:58 PM STROBOSCOPE OPERATOR us Tanisha Marsh ROAD DRIVER LAB URINE ORDERABLES Final Resu lt MIKE WEBBER ([place]) [address] [facility] Department [place] [address] * (ABNORMAL) Lipid panel (06/01/2023 1:03 PM STROBOSCOPE OPERATOR) Cholesterol 213(H) 30 - 199 mg/dL MIKE WEBBER ([place]) Comment: Interpretive Data Ages < or = 19 years Acceptable: <170 mg/dL Borderline high: 170-199 mg/dL High: >or= 200 mg/dL Ages > or = 20 years Desirable: <200 mg/dL Borderline high: 200-239 mg/dL High: >or= 240 mg/dL Literature References: 1. Expert Panel on Integrated Guidelines for Cardiovascular Health and Risk Reduction in Children and Adolescents. Pediatrics 2011;128:S213 2. NCEP Expert Panel. Circulation 2004;110:227 Current Interpretive Data was last revised on 2017. Triglycerides 70 <=149 mg/dL MIKE WEBBER ([place]) Comment: Interpretive Data Ages < or = 9 years Acceptable: <75 mg/dL Borderline high: 75-99 mg/dL High: >or= 100 mg/dL Ages 10 to 20 years Acceptable: <90 mg/dL Borderline high: 90-129 mg/dL High: >or= 130 mg/dL Ages > or = 20 years Desirable: <150 mg/dL Borderline high: 150-199 mg/dL High: 200-499 mg/dL Very high: >or= 499 mg/dL Literature References: 1. Expert Panel on Integrated Guidelines for Cardiovascular Health and Risk Reduction in Children and Adolescents. Pediatrics 2011;128:S213 2. NCEP Expert Panel. Circulation 2004;110:227 Current Interpretive Data was last revised on 2017. HDL 62 >=40 mg/dL MIKE WEBBER ([place]) Comment: Interpretive Data Ages < or = 19 years Acceptable: >45 mg/dL Borderline low: 40-45 mg/dL Low: <40 mg/dL Ages > or = 20 years Desirable: >or= 60 mg/dL Low: <40 mg/dL Literature References: 1. Expert Panel on Integrated Guidelines for Cardiovascular Health and Risk Reduction in Children and Adolescents. Pediatrics 2011;128:S213 2. NCEP Expert Panel. Circulation 2004;110:227 Current Interpretive Data was last revised on 2017. LDL, calculated 137(H) <=129 mg/dL MIKE WEBBER ([place]) Comment: Interpretive Data Ages < or = 19 years Acceptable: <110 mg/dL Borderline high: 110-129 mg/dL High: >or= 130 mg/dL Ages > or = 20 years Optimal: <100 mg/dL Near optimal: 100-129 mg/dL Borderline high: 130-159 mg/dL High: >160 mg/dL Literature References: 1. Expert Panel on Integrated Guidelines for Cardiovascular Health and Risk Reduction in Children and Adolescents. Pediatrics 2011;128:S213 2. NCEP Expert Panel. Circulation 2004;110:227 Current Interpretive Data was last revised on 2017. Non-HDL Cholesterol 151 mg/dL MIKE WEBBER ([place]) Comment: Interpretive Data Ages < or = 19 years Acceptable: <120 mg/dL Borderline high: 120-144 mg/dL High: >145 mg/dL Ages > or = 20 years When triglycerides are >200 mg/dL, Non-HDL cholesterol is a secondary target of therapy with treatment goals that are 30 mg/dL greater than the LDL cholesterol target. Literature References: 1. Expert Panel on Integrated Guidelines for Cardiovascular Health and Risk Reduction in Children and Adolescents. Pediatrics 2011;128:S213 2. NCEP Expert Panel. Circulation 2004;110:227 Current Interpretive Data was last revised on 2017. Chol/HDL ratio 3 DEONDRE WEBBER ([place]) Blood 06/01/2023 1:03 PM STROBOSCOPE OPERATOR 06/01/2023 1:25 PM STROBOSCOPE OPERATOR Narrative EJMARVIN LAWANDA ([place]) - 06/01/2023 2:20 PM STROBOSCOPE OPERATOR These lab test should be done fasting. This means do not eat or drink for at least 12 hours prior to getting your blood drawn. Tanisha Marsh NP LAB BLOOD ORDERABLES Final Resu lt MIKE LAWANDA ([place]) [address] 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
--- OUTSIDE RECORDS SUMMARY | 2024-06-07 08:21 | XMS_ITS | Patient Health Summary ---
Author Organization [facility] [employer] Address [address] [place] [address] Care Team Providers Care Air Bag Curer Name Role Phone Lacy Harrison MD Primary Care Provider [phone] Note from [facility] [place]note 2],non-owned Affiliates and Associated Physician Practices is amultiple site organization consisting of ambulatory clinics and hospital sitesin [place], [place], [place] and [place]. This disclosure is being madepursuant to the Care Everywhere program and may not contain all information available regarding this patient. Last updated 18.[facility] Allergies No known active allergies Medications * Be aware that medications may not be up to date on this document. Alwaysverify current medications with the patient. * insulin aspart (NOVOLOG) vial Inject subcutaneously 3 times daily before meals * insulin glargine (LANTUS) vial(Started 08/07/2018) Inject 35 Units subcutaneously at bedtime Reasons: Insulin-Dependent Diabetes * Atorvastatin Calcium (LIPITOR PO) STRENGTH UNKNOWN PLEASE GET FROM PATIENT! Active Problems Problem Noted Date Diagnosed Date Hyperglycemia 08/05/2018 Chest pain 08/04/2018 Diabetic ketoacidosis withou t coma associated with type 1 diabetes mellitus 08/04/2018 Social History Tobacco Use Types Packs/Day Years Used Date Smoking Tobacco: Never Smokeless Tobacco: Never Alcohol Use Standard Drinks/Week Comments Yes 0 (1 standard drink = 0.6 oz pure alcohol) rare. Will lay off due to a bad experience Sex and Gender Information Value Date Recorded Sex Assigned at Not on file Gender Identity Not on file Sexual Orientation Not on file Last Filed Vital Signs Vital Sign Reading Time Taken Comments Blood Pressure 128/94 03/11/2021 9:26 AM [facility] Pulse 101 03/09/2021 1:29 AM [facility] Temperature 37.1 C (98.7 F) 03/09/2021 1:29 AM [facility] Respiratory Rate 18 03/09/2021 1:29 AM [facility] Oxygen Saturation 98% 03/09/2021 4:31 AM [facility] Inhaled Oxygen Concentration - - Weight 69.9 kg (154 lb) 03/11/2021 9:26 AM [facility] Height 157.5 cm (5' 2 ) 03/11/2021 9:26 AM [facility] Body Mass Index 28.17 03/11/2021 9:26 AM [facility] Procedures * HCG BETA BLOOD QUANTITATIVE(Performed 03/09/2021) * COMPREHENSIVE METABOLIC PANEL(Performed 03/09/2021) * CBC W AUTO DIFFERENTIAL(Performed 03/09/2021) * GLUCOSE - POINT OF CARE(Performed 08/07/2018) * GLUCOSE - POINT OF CARE(Performed 08/07/2018) * GLUCOSE - POINT OF CARE(Performed 08/06/2018) * GLUCOSE - POINT OF CARE(Performed 08/06/2018) * GLUCOSE - POINT OF CARE(Performed 08/06/2018) * GLUCOSE - POINT OF CARE(Performed 08/06/2018) * GLUCOSE - POINT OF CARE(Performed 08/06/2018) * GLUCOSE - POINT OF CARE(Performed 08/06/2018) * GLUCOSE - POINT OF CARE(Performed 08/06/2018) * GLUCOSE - POINT OF CARE(Performed 08/06/2018) * GLUCOSE - POINT OF CARE(Performed 08/05/2018) * GLUCOSE - POINT OF CARE(Performed 08/05/2018) * GLUCOSE - POINT OF CARE(Performed 08/05/2018) * GLUCOSE - POINT OF CARE(Performed 08/05/2018) * MAGNESIUM BLOOD(Performed 08/05/2018) * BASIC METABOLIC PANEL (CALCIUM TOTAL)(Performed 08/05/2018) * GLUCOSE - POINT OF CARE(Performed 08/05/2018) * HEMOGLOBIN A1C(Performed 08/05/2018) * GLUCOSE - POINT OF CARE(Performed 08/05/2018) * GLUCOSE - POINT OF CARE(Performed 08/05/2018) * GLUCOSE - POINT OF CARE(Performed 08/05/2018) * GLUCOSE - POINT OF CARE(Performed 08/05/2018) * GLUCOSE - POINT OF CARE(Performed 08/04/2018) * BLOOD GASES ADRIÁN(Performed 08/04/2018) * HYDROXYBUTYRATE BETA(Performed 08/04/2018) * BASIC METABOLIC PANEL (CALCIUM TOTAL)(Performed 08/04/2018) * GLUCOSE - POINT OF CARE(Performed 08/04/2018) * GLUCOSE - POINT OF CARE(Performed 08/04/2018) * GLUCOSE - POINT OF CARE(Performed 08/04/2018) * GLUCOSE - POINT OF CARE(Performed 08/04/2018) * GLUCOSE - POINT OF CARE(Performed 08/04/2018) * HCG URINE QUALITATIVE - POINT OF CARE(Performed 08/04/2018) * BLOOD GASES ADRIÁN(Performed 08/04/2018) * GLUCOSE - POINT OF CARE(Performed 08/04/2018) * URINALYSIS W/MICROSCOPIC NO CULTURE(Performed 08/04/2018) * HIV-1 HIV-2 ANTIGEN/ANTIBODY(Performed 08/04/2018) * TROPONIN I(Performed 08/04/2018) * BLOOD GASES ADRIÁN(Performed 08/04/2018) * PHOSPHORUS BLOOD(Performed 08/04/2018) * MAGNESIUM BLOOD(Performed 08/04/2018) * HYDROXYBUTYRATE BETA(Performed 08/04/2018) * LIPASE BLOOD(Performed 08/04/2018) * COMPREHENSIVE METABOLIC PANEL(Performed 08/04/2018) * CBC W AUTO DIFFERENTIAL(Performed 08/04/2018) * XR CHEST 2VW(Performed 08/04/2018) Performed for Chest pain, unspecified type * GLUCOSE - POINT OF CARE(Performed 08/04/2018) Results * (ABNORMAL) CBC W AUTO DIFFERENTIAL (03/09/2021 3:42 AM [facility]) Only the most recent of2 resultswithin the time period is included. WBC 3.1(L) 4.4 - 10.7 x10E9/L 03/09/2021 3:46 AM [facility] WBC Corrected 03/09/2021 3:46 AM [facility] RBC 3.59(L) 3.80 - 5.20 x10E12/L 03/09/2021 3:[address] [facility] Hemoglobin 11.2(L) 12.0 - 15.6 gm/dL 03/09/2021 3:[address] [facility] Hematocrit 35.5(L) 35.9 - 45.5 % 03/09/2021 3:[address] [facility] MCV 98.9(H) 80.7 - 98.3 fl 03/09/2021 3:[address] [facility] MCH 31.2 26.7 - 34.0 pg 03/09/2021 3:[address] [facility] MCHC 31.5 30.8 - 35.9 gm/dL 03/09/2021 3:[address] [facility] Platelet Count 234 153 - 416 x10E9/L 03/09/2021 3:[address] [facility] RDW-CV 12.5 12.1 - 14.9 % 03/09/2021 3:[address] [facility] MPV 10.2 9.4 - 12.9 fl 03/09/2021 3:[address] [facility] Neutrophils % 58.5 44.0 - 73.0 % 03/09/2021 3:[address] [facility] Lymphocytes % 34.4 20.0 - 43.0 % 03/09/2021 3:[address] [facility] Monocytes % 4.8(L) 5.0 - 13.0 % 03/09/2021 3:[address] [facility] Eosinophils % 1.3 0.0 - 6.0 % 03/09/2021 3:[address] [facility] Basophils % 1.0 0.0 - 2.0 % 03/09/2021 3:[address] [facility] Immature Granulocytes 0.0 0 - 1 % 03/09/2021 3:[address] [facility] Neutrophil Absolute 1.82(L) 2.01 - 7.14 x10E9/L 03/09/2021 3:[address] [facility] Lymphocytes Absolute 1.07 1.07 - 3.94 x10E9/L 03/09/2021 3:[address] [facility] Monocytes Absolute 0.15(L) 0.26 - 1.07 x10E9/L 03/09/2021 3:[address] [facility] Eosinophils Absolute 0.04 0 - 0.47 x10E9/L 03/09/2021 3:[address] [facility] Basophils Absolute 0.03 0 - 0.08 x10E9/L 03/09/2021 3:[address] [facility] Immature Granulocytes Absolute 0.00 0.00 - 0.06 x10E9/L 03/09/2021 3:[address] [facility] nRBC Auto 0 /100 WBC 03/09/2021 3:[address] [facility] Blood BLOOD SPECIMEN / Unknown Venipuncture / Unknown 03/09/2021 3:42 AM [facility] 03/09/2021 3:44 AM [facility] Harley Pearl MD LAB - HEMATOLOGY ORDERABLES [facility] [address] [place] [address] * (ABNORMAL) COMPREHENSIVE METABOLIC PANEL (03/09/2021 3:42 AM [facility]) Only the most recent of2 resultswithin the time period is included. Glucose 337(H) 70 - 105 mg/dL 03/09/2021 4:[address] [facility] Sodium 135(L) 136 - 145 mmol/L 03/09/2021 4:[address] [facility] Potassium 4.5 3.5 - 5.1 mmol/L 03/09/2021 4:[address] [facility] Chloride 106 98 - 107 mmol/L 03/09/2021 4:[address] [facility] CO2 20(L) 23 - 31 mmol/L 03/09/2021 4:[address] [facility] Calcium 8.6 8.4 - 10.4 mg/dL 03/09/2021 4:[address] [facility] Anion Gap 9 8 - 18 mmol/L 03/09/2021 4:[address] [facility] BUN 9 7 - 18.7 mg/dL 03/09/2021 4:[address] [facility] Creatinine 0.78 0.57 - 1.11 mg/dL 03/09/2021 4:[address] [facility] Alkaline Phosphatase 74 40 - 150 U/L 03/09/2021 4:[address] [facility] ALT 13 0 - 61 U/L 03/09/2021 4:[address] [facility] AST 15 5 - 34 U/L 03/09/2021 4:[address] [facility] Protein Total 6.9 6.4 - 8.3 gm/dL 03/09/2021 4:[address] [facility] Albumin 3.7 3.5 - 5.2 gm/dL 03/09/2021 4:[address] [facility] Bilirubin Total 0.3 0.2 - 1.2 mg/dL 03/09/2021 4:[address] [facility] eGFR by MDRD >60 >60 mL/min/1.7 3m2 03/09/2021 4:[address] [facility] eGFR by MDRD >60 >60 mL/min/1.7 3m2 03/09/2021 4:[address] [facility] Blood BLOOD SPECIMEN / Unknown Venipuncture / Unknown 03/09/2021 3:42 AM [facility] 03/09/2021 3:44 AM [facility] aHrley Pearl MD LAB - CHEMISTRY O RDERABLES Performing Organization Address City/State/[facility] Co de Phone Number [facility] [address] [place] [address] * HCG BETA BLOOD QUANTITATIVE (03/09/2021 3:42 AM [facility]) hCG Quantitative <1.20 mIU/mL 03/09/20 4:[address] [facility] Blood BLOOD SPECIMEN / Unknown Venipuncture / Unknown 03/09/2021 3:42 AM [facility] 03/09/2021 3:44 AM [facility] Narrative [facility] - 03/09/2021 4:06 AM [facility] hCG Reference Range, mIU/mL: Males 0-2.0 Non Females 0-6.0 Perimenopausal Females ages 41-55* 0-7.7 Postmenopausal Females age >55* 0-14 Females, Weeks after Last Menstrual Period 0.2-1 week 5-50 1 - 2 weeks 50-500 2 - 3 weeks 100-5000 3 - 4 weeks 500-10,000 4 - 5 weeks 1000-50,000 5 - 6 weeks 10,000-100,000 6 - 8 weeks 15,000-200,000 2 - 3 months 10,000-100,000 Trophoblastic Disease >100,000 *In higher than expected hCG in females > age 40, a serum FSH >20 IU/L makes unlikely. Harley Pearl MD LAB - CHEMISTRY O RDERABLES [facility] [address] [place] [address] * (ABNORMAL) GLUCOSE - POINT OF CARE (08/07/2018 11:10 AM CDT) Only the most recent of27 resultswithin the time period is included. Pathologist [facility] Glucose WB/POC 242(H) 70 - 115 mg/dL 08/07/2018 11:17 AM CDT [facility] Specimen Type Arterial/C apillary 08/07/2018 11:17 AM CDT [facility] Blood BLOOD SPECIMEN / Unknown 08/07/2018 11:10 AM CDT 08/07/2018 11:17 AM CDT [facility] - 08/07/2018 11:17 AM CDT WHOLESALER: GORDO BEE Edmundo Mirza III, MD LAB - POINT OF C ARE ORDERABLES Performing Organization Address [facility] Co de Phone Number [facility] [address] [place] [address] * (ABNORMAL) BASIC METABOLIC PANEL (CALCIUM TOTAL) (08/05/2018 6:30 AM CDT) Only the most recent of2 resultswithin the time period is included. BUN 10 7 - 26 mg/dL 08/05/2018 6:50 AM CDT [facility] Creatinine 0.6 0.6 - 1.2 mg/dL 08/05/2018 6:50 AM CDT [facility] Sodium 136 136 - 145 mmol/L 08/05/2018 6:50 AM T [facility] Potassium 3.7 3.5 - 4.5 mmol/L 08/05/2018 6:50 AM [facility] Chloride 108(H) 98 - 107 mmol/L 08/05/2018 6:50 AM [facility] CO2 20(L) 22 - 29 mmol/L 08/05/2018 6:50 AM [facility] Glucose 116(H) 70 - 115 mg/dL 08/05/2018 6:50 AM [facility] Calcium 8.5 8.4 - 10.2 mg/dL 08/05/2018 6:50 AM [facility] Anion Gap 12 8 - 18 08/05/2018 6:50 AM [facility] BUN/Creatinine Ratio 17 7 - 23 08/05/2018 6:50 AM [facility] Osmolality Calculated 282 270 - 300 mOsm/kg 08/05/2018 6:50 AM [facility] eGFR >60 >60 mL/min/1.7 3 m2 08/05/2018 6:50 AM [facility] Blood BLOOD SPECIMEN / Unknown Venipuncture / Unknown 08/05/2018 6:30 AM CDT 08/05/2018 6:30 AM CDT Ayad Schwab DO LAB - CHEMISTRY ABEL URIBE Performing Organization Address City/[facility]/ZIP Co de Phone Number [address] [phone] * MAGNESIUM BLOOD (08/05/2018 6:30 AM CDT) Only the most recent of2 resultswithin the time period is included. Magnesium 1.6 1.6 - 2.6 mg/dL 08/05/2018 6:50 AM T [facility] Blood BLOOD SPECIMEN / Unknown Venipuncture / Unknown 08/05/2018 6:30 AM CDT 08/05/2018 6:30 AM CDT Ayad Schwab DO LAB - CHEMISTRY ABEL URIBE [address] [phone] * (ABNORMAL) HEMOGLOBIN A1C (08/05/2018 4:38 AM CDT) Hemoglobin A1c 10.7(H) 4.4 - 6.3 % 08/07/2018 12:23 PM CDT [facility] Estimated Average Glucose 260 mg/dL 08/07/2018 12:23 PM CDT [facility] Comment: HbA1c Interpretation: Treatment target values recommended by ADA and other clinical organizations should be used to evaluate metabolic control in patients. Treatment Target Values: Normal : < 5.7% Pre-diabetes: 5.7-6.4% Diabetes: Equal to or greater than 6.5% Reference: [place] [employer] Standards of Care in Diabetes -2014 In patients 70 years and older consider HbA1c target range of 7.0-7.5% Reference: Diabetes Mellitus in Older People: Position Statement on behalf of the International Association of Gerontology and Geriatrics (IAGG), the Diabetes Working Republican for Older People (EDWPOP), and the International Task Force of Experts in Diabetes. Davonte Najera, et al. J [place] [employer]. 2012 Test results diagnostic of diabetes should be repeated for confirmation. The Sebia Capillary 2 assay for the measurement of HbA1c is a National Glycohemoglobin Standardization Program (NGSP)certified method. Blood BLOOD SPECIMEN / Unknown Venipuncture / Unknown 08/05/2018 4:38 AM CDT 08/05/2018 4:38 AM CDT Maryse Chance MD LAB - CHEMISTRY ABEL URIBE [facility] Organization Address City/State/ZIP Co de Phone Number [facility] [address] [phone] * (ABNORMAL) HYDROXYBUTYRATE BETA (08/04/2018 11:10 PM CDT) Only the most recent of2 resultswithin the time period is included. Beta-Hydroxybu tyrate 2.22(H) 0.02 - 0.27 mmol/L 08/04/2018 11:31 PM CDT [facility] Blood BLOOD SPECIMEN / Unknown Venipuncture / Unknown 08/04/2018 11:10 PM CDT 08/04/2018 11:14 PM CDT Vanessa Delgado MD LAB - CHEMISTRY OR DERABLES [facility] [address] [phone] * (ABNORMAL) BLOOD GASES ADRIÁN (08/04/2018 11:10 PM CDT) Only the most recent of3 resultswithin the time period is included. pH Mixed Venous 7.32 7.30 - 7.40 08/04/2018 11:17 PM [facility] pCO2 Mixed Venous 29(L) 40 - 46 mmHg 08/04/2018 11:17 PM [facility] pO2 Mixed Venous 62(H) 35 - 42 mmHg 08/04/2018 11:17 PM [facility] HCO3 Mixed Venous 14.6(L) 22.0 - 26.0 mmol/L 08/04/2018 11:17 PM [facility] TCO2 Mixed Venous 15.4(L) 25.0 - 29.0 mmol/L 08/04/2018 11:17 PM [facility] Base Excess Venous -10.3(L) -2.0 - 2.0 mmol/L 08/04/2018 11:17 PM [facility] Hemoglobin Mixed Venous 11.2(L) 12.0 - 15.5 g/dL 08/04/2018 11:17 PM [facility] Oxyhemoglobin Mixed Venous 90.0(H) 66.0 - 77.0 % 08/04/2018 11:17 PM [facility] Carboxyhemoglobin Venous 0.3 0.0 - 3.0 % 08/04/2018 11:17 PM [facility] Methemoglobin 0.3 0.0 - 2.0 % 08/04/2018 11:17 PM [facility] FI O2 Mixed Venous 21.0 % 2018 11:17 PM [facility] Blood BLOOD SPECIMEN / Unknown Venipuncture / Unknown 08/04/2018 11:10 PM CDT 08/04/2018 11:14 PM CDT Vanessa Delgado MD LAB - BLOOD GASES ORDERABLES [place] [id number] [address] [phone] * HCG URINE QUALITATIVE - POINT OF CARE (08/04/2018 5:41 PM CDT) HCG Qual Urine Negative Negative [facility] P OCT TESTING QC Verified Yes Yes [facility] POCT TESTING Urine URINE / Unknown 08/04/2018 5 :41 PM CDT Sonali Gonzalez PA-C LAB - POINT OF CARE ORDERABLES Performing Organization Address [facility]/ZIP Co de Phone Number [facility] [address] [place] [address] * (ABNORMAL) URINALYSIS W/MICROSCOPIC NO CULTURE (08/04/2018 3:35 PM CDT) Color UA Straw Straw, Yellow, Colorless 08/04/2018 3:51 PM CDT [facility] Clarity UA Clear Clear, Slt Cloudy 08/04/2018 3:51 PM CDT [facility] Specific [place] UA 1.027 1.005 - 1.030 08/04/2018 3:51 PM T [facility] pH UA 5.0 5.0 - 8.0 pH 08/04/2018 3:51 PM CDT [facility] Protein UA Negative Negative mg/dL 08/04/2018 3:51 PM CDT [facility] Glucose UA 3+(A) Negative mg/dL 08/04/2018 3:51 PM CDT [facility] Ketone UA 2+(A) Negative mg/dL 08/04/2018 3:51 PM CDT [facility] Bilirubin UA Negative Negative mg/dL 08/04/2018 3:51 PM CDT [facility] Blood UA Negative Negative 08/04/2018 3:51 PM CDT [facility] Nitrite UA Negative Negative 08/04/2018 3:51 PM CDT [facility] Leukocyte Esterase Negative Negative 08/04/2018 3:51 PM CDT [facility] Urobilinogen UA Negative Negative mg/dL 08/04/2018 3:51 PM CDT [facility] RBC UA 0-2 None Seen, 0-2, 3-5 /HPF 08/04/2018 3:51 PM CDT [facility] WBC UA None Seen None Seen, 0-5 /HPF 08/04/2018 3:51 PM CDT [facility] Squamous Epithelial Cells UA None Seen None Seen, 0-2 /HPF 08/04/2018 3:51 PM CDT [facility] Mucus UA 1+ None, 1+ /LPF 08/04/2018 3:51 PM CDT [facility] Urine URINE SPECIMEN OBTAINED BY CLEAN CATCH PROCEDURE / Unknown Collection / Unknown 08/04/2018 3:35 PM CDT 08/04/2018 3:39 PM CDT Sonali Gonzalez PA-C LAB - URINAL YSIS ORDERABLES [address] [phone] * HIV-1 HIV-2 ANTIGEN/ANTIBODY (08/04/2018 3:20 PM CDT) HIV Antigen/Antibod y 1 & 2 Non-reacti ve Non-react eladio 08/04/2018 4:06 PM CDT [facility] Comment: Neither HIV-1 p24 Antigen nor HIV-1/HIV-2 Antibodies are detected. Blood BLOOD SPECIMEN / Unknown Venipuncture / Unknown 08/04/2018 3:20 PM CDT 08/04/2018 3:28 PM CDT Rudolph Sargent MD LAB - HEMATOLOGY ORD ERABLES [address] [phone] * TROPONIN I (08/04/2018 3:20 PM CDT) Troponin I 0.010 <0.032 ng/mL 08/04/2018 3:52 PM CDT [facility] Blood BLOOD SPECIMEN / Unknown Venipuncture / Unknown 08/04/2018 3:20 PM CDT 08/04/2018 3:28 PM CDT Sonali Gonzalez PA-C LAB - CHEMIS TRY ORDERABLES [address] [phone] * PHOSPHORUS BLOOD (08/04/2018 3:20 PM CDT) Phosphorus 4.2 2.3 - 4.7 mg/dL 08/04/2018 3:42 PM CDT [facility] Blood BLOOD SPECIMEN / Unknown Venipuncture / Unknown 08/04/2018 3:20 PM CDT 08/04/2018 3:28 PM CDT Sonali Gonzalez PA-C LAB - CHEMIS TRY ORDERABLES Performing Organization Address [facility] Co de Phone Number [address] [phone] * LIPASE BLOOD (08/04/2018 3:20 PM CDT) Lipase 12 8 - 78 Units/L 08/04/2018 3:56 PM CDT [facility] Blood BLOOD SPECIMEN / Unknown Venipuncture / Unknown 08/04/2018 3:20 PM CDT 08/04/2018 3:28 PM CDT Sonali Gonzalez PA-C LAB - CHEMIS TRY ORDERABLES Performing Organization Address City/[facility]/ZIP Co de Phone Number [address] [phone] * XR CHEST 2VW (08/04/2018 2:36 PM CDT) Anatomical Region Laterality Modality Chest Radiographic Sissy ging 08/04/2018 2:43 PM CDT Impressions 08/04/2018 3:53 PM CDT IMPRESSION: No acute pulmonary process. Dictated by Hank Penaloza MD (regional vice president surgical sales). This report was approved by Hank Penaloza on 08/04/2018 3:[address] ANNE-MARIE Salamanca M.D. have personally reviewed and interpreted this examination/study. This report was electronically signed by ANNE-MARIE OLIVA M.D. on 08/04/2018 3:53 PM . Narrative 08/04/2018 3:53 PM CDT EXAMINATION: XR CHEST 2VW HISTORY: chest pain FINDINGS: No prior study is available for comparison at the time of this dictation. There is no focal consolidation, pleural effusion, or pneumothorax. The cardiomediastinal silhouette is normal. The visible bony thorax is intact. Procedure Note Anne-Marie Oliva MD - 08/04/2018 EXAMINATION: XR CHEST 2VW HISTORY: chest pain FINDINGS: No prior study is available for comparison at the time of this dictation. There is no focal consolidation, pleural effusion, or pneumothorax. The cardiomediastinal silhouette is normal. The visible bony thorax isintact. IMPRESSION: No acute pulmonary process. Dictated by Hank Penaloza MD (regional vice president surgical sales). This report was approved by Hank Penaloza on 08/04/2018 3:[address] ANNE-MARIE Salamanca M.D. have personally reviewed and interpreted this examination/study. This report was electronically signed by ANNE-MARIE OLIVA M.D. on 08/04/2018 3:53 PM . Sonali Gonzalez PA-C [facility] Care Teams Air Bag Curer Relationship Specialty Start Date End Date Lacy Harrison MD [address] [place] [address] MURALI Perry [phone] PCP - General Family Medicine 08/04/18
--- OUTSIDE RECORDS SUMMARY | 2024-06-07 08:21 | XMS_ITS | Referral Summary ---
Author Organization [facility] Address [address] [place] [address] Care Team Providers Care Field Application Engineer Name Role Phone Lacy Harrison MD Primary Care Provider [phone] Source Comments [facility],non-owned Affiliates and Associated Physician Practices is amultiple site organization consisting of ambulatory clinics and hospital sitesin [place], [place], [place] and [place]. This disclosure is being madepursuant to the Care Everywhere program and may not contain all information available regarding this patient. Last updated 18.[facility] Allergies No known active allergies Medications * Be aware that medications may not be up to date on this document. Alwaysverify current medications with the patient. Medication Sig Dispensed Refills Start Date End Date Status insulin aspart (NOVOLOG) vial Inject subcutaneously 3 times daily before meals Active insulin glargine (LANTUS) vialIndications:Ty pe 1 Diabetes Mellitus Inject 35 Units subcutaneously at bedtime Reasons: Insulin-Dependent Diabetes 1 vial 08/07/2018 Active Atorvastatin Calcium (LIPITOR PO) STRENGTH UNKNOWN PLEASE GET FROM PATIENT! Active Active Problems Problem Noted Date Diagnosed [...] Comments Blood Pressure 128/94 03/11/2021 9:26 AM PAYER SPECIALIST Pulse 101 03/09/2021 1:29 AM PAYER SPECIALIST Temperature 37.1 C (98.7 F) 03/09/2021 1:29 AM PAYER SPECIALIST Respiratory Rate 18 03/09/2021 1:29 AM PAYER SPECIALIST Oxygen Saturation 98% 03/09/2021 4:31 AM PAYER SPECIALIST Inhaled Oxygen Concentration - - Weight 69.9 kg (154 lb) 03/11/2021 9:26 AM PAYER SPECIALIST Height 157.5 cm (5' 2 ) 03/11/2021 9:26 AM PAYER SPECIALIST Body Mass Index 28.17 03/11/2021 9:26 AM PAYER SPECIALIST Functional Status Functional Status Response Date of Assess ment Is person deaf or have serious hearing difficult y? No 08/05/2018 Is person blind or have serious difficulty seein g? No 08/05/2018 Does person have serious dif ficulty walking/climbing stairs? No 08/05/2018 Does person have difficulty dressing/bathing? No 08/05/2018 Does person have difficulty doing errands alone? No 08/05/2018 Cognitive Status Response Date of Assessm ent Does person have difficulty concentrating/remembering/making decisions? No 08/05/2018 Plan of Treatment Not on file Procedures Procedure Name Priority Date/Time Associated Diagnosis Comments COMPREHENSIVE METABOLIC PANEL STAT 03/09/2021 3:42 AM PAYER SPECIALIST HEMOGLOBIN A1C DARRELL 08/05/2018 4:38 AM CDT HIV-1 HIV-2 ANTIGEN/ANTIBODY STAT 08/04/2018 3:20 PM CDT from Last 3 Months or Most Recently Relevant to Health Maintenance Results * (ABNORMAL) COMPREHENSIVE METABOLIC PANEL (03/09/2021 3:42 AM PAYER SPECIALIST) Glucose 337(H) 70 - 105 mg/dL 03/09/2021 4:00 AM PAYER SPECIALIST [facility] Sodium 135(L) 136 - 145 mmol/L 03/09/2021 4:00 AM [facility] Potassium 4.5 3.5 - 5.1 mmol/L 03/09/2021 4:00 AM [facility] Chloride 106 98 - 107 mmol/L 03/09/2021 4:00 AM [facility] CO2 20(L) 23 - 31 mmol/L 03/09/2021 4:00 AM [facility] Calcium 8.6 8.4 - 10.4 mg/dL 03/09/2021 4:00 AM [facility] Anion Gap 9 8 - 18 mmol/L 03/09/2021 4:00 AM [facility] BUN 9 7 - 18.7 mg/dL 03/09/2021 4:00 AM [facility] Creatinine 0.78 0.57 - 1.11 mg/dL 03/09/2021 4:00 AM [facility] Alkaline Phosphatase 74 40 - 150 U/L 03/09/2021 4:00 AM [facility] ALT 13 0 - 61 U/L 03/09/2021 4:00 AM [facility] AST 15 5 - 34 U/L 03/09/2021 4:00 AM [facility] Protein Total 6.9 6.4 - 8.3 gm/dL 03/09/2021 4:00 AM [facility] Albumin 3.7 3.5 - 5.2 gm/dL 03/09/2021 4:00 AM [facility] Bilirubin Total 0.3 0.2 - 1.2 mg/dL 03/09/2021 4:00 AM [facility] eGFR by MDRD >60 >60 mL/min/1.7 3m2 03/09/2021 4:00 AM [facility] eGFR by MDRD >60 >60 mL/min/1.7 3m2 03/09/2021 4:00 AM [facility] Blood BLOOD SPECIMEN / Unknown Venipuncture / Unknown 03/09/2021 3:42 AM PAYER SPECIALIST 03/09/2021 3:44 AM PAYER SPECIALIST Harley Pearl MD LAB - CHEMISTRY O RDERABLES [facility] [address] [place] [address] * (ABNORMAL) HEMOGLOBIN A1C (08/05/2018 4:38 AM CDT) Hemoglobin A1c 10.7(H) 4.4 - 6.3 % 08/07/2018 12:23 PM CDT [facility] Estimated Average Glucose 260 mg/dL 08/07/2018 12:23 PM CDT [facility] Comment: HbA1c Interpretation: Treatment target values recommended by ADA and other clinical organizations should be used to evaluate metabolic control in patients. Treatment Target Values: Normal : < 5.7% Pre-diabetes: 5.7-6.4% Diabetes: Equal to or greater than 6.5% Reference: [place] Diabetes Association Standards of Care in Diabetes -2014 In patients 70 years and older consider HbA1c target range of 7.0-7.5% Reference: Diabetes Mellitus in Older People: Position Statement on behalf of the International Association of Gerontology and Geriatrics (IAGG), the Diabetes Working Constitution Party for Older People (EDWPOP), and the International Task Force of Experts in Diabetes. Davonte Najera, et al. J [place] Medical Directors Association. 2012 Test results diagnostic of diabetes should be repeated for confirmation. The Sebia Capillary 2 assay for the measurement of HbA1c is a National Glycohemoglobin Standardization Program (NGSP)certified method. Blood BLOOD SPECIMEN / Unknown Venipuncture / Unknown 08/05/2018 4:38 AM CDT 08/05/2018 4:38 AM CDT Maryse Chance MD LAB - CHEMISTRY [facility] [address] [phone] * HIV-1 HIV-2 ANTIGEN/ANTIBODY (08/04/2018 3:20 PM CDT) HIV Antigen/Antibod y 1 & 2 Non-reacti ve Non-react eladio 08/04/2018 4:06 PM CDT [facility] Comment: Neither HIV-1 p24 Antigen nor HIV-1/HIV-2 Antibodies are detected. Blood BLOOD SPECIMEN / Unknown Venipuncture / Unknown 08/04/2018 3:20 PM CDT 08/04/2018 3:28 PM CDT Rudolph Sargent MD LAB - HEMATOLOGY ORD ERABLES [place] [id number] [address] [phone] from Last 3 Months or Most Recently Relevant to Health Maintenance Advance Directives * Full Code (Latest Code Status on File) Date Activated Date Inactivated Comments 08/05/2018 5:32 AM 08/07/2018 4:23 PM Care Teams Field Application Engineer Relationship Specialty Start Date End Date Lacy Harrison MD [address] [place] [id number] PCP - General Family Medicine 08/04/18
--- OUTSIDE RECORDS SUMMARY | 2024-06-07 08:21 | XMS_ITS | Encounter Summary ---
Author Organization [facility] Address [address] [place] [address] Care Team Providers Care Line Assembler Aircraft Name Role Phone Lacy Harrison MD Primary Care Provider [phone] Reason for Visit * Reason Onset Date Comments Appointment 07/17/2021 Encounter Details Date Type Department Care Team (Late st Contact Info) Description 07/17/2021 Telephone [facility] [address] [place] [address] Navdeep Shah MD [address] [phone] Appointment Social History Tobacco Use Types Packs/Day Years Used Date Smoking Tobacco: Never Smokeless Tobacco: Never Alcohol Use Standard Drinks/Week Comments Yes 0 (1 standard drink = 0.6 oz pure alcohol) rare. Will lay off due to a bad experience Sex and Gender Information Value Date Recorded Sex Assigned at Not on file Gender Identity Not on file Sexual Orientation Not on file documented as of this encounter Functional Status Functional Status Response Date of [...] person have difficulty concentrating/remembering/making decisions? No 08/05/2018 documented as of this encounter Miscellaneous Notes * Telephone Encounter - Georgia Doty - 07/22/2021 3:56 PM CDT Left msg for patient on 07/17/21 insurance ineligible. Patient has not contacted the office back * Telephone Encounter - Deepthi Roth - 07/17/2021 10:12 AM CDT Pt needs to make an appointment with MFM she had to cancel her last on. documented in this encounter Plan of Treatment Not on file documented as of this encounter Visit Diagnoses Not on filedocumented in this encounter Care Teams Line Assembler Aircraft Relationship Specialty Start Date End Date Lacy Harrison MD [address] [place] [address] [place] [id number] PCP - General Family Medicine 08/04/18 documented as of this encounter
--- OUTSIDE RECORDS SUMMARY | 2024-06-07 08:21 | XMS_ITS | Referral Summary ---
Author Organization [facility] Address [address] [place] [address] Care Team Providers Care Switch Adjuster Name Role Phone Tanisha Marsh SECURITY OPERATIONS ENGINEER Unavailable [phone] No, Physician Primary Care Provider [phone] Allergies No known active allergies Medications lancets [...] 05/18/19 24 Active blood-glucose meter,continuous (Dexcom G7 Brick Wheeler) misc 1 Device continuously To continuously monitor [...] to insulin pump therapy. She would like [employer] system Personally reviewed most recent A1c - [...] age Assessment & Plan (05/18/2023 4:02 PM AMBULETTE DRIVER): This is a chronic condition which is [...] 30, active insulin time- 3hrs. Target range [phone], [phone] for insulin pump failure, use lantus 32 [...] eye appt. - [facility] [place]. Monofilament foot exam completed, protective senses intact. [...] No history of macrovascular disease - [place]. Assessment & Plan (04/21/2022 1:45 PM AMBULETTE DRIVER): This is a chronic condition which is [...] eye appt. - [facility] [place]. Monofilament foot exam completed, protective senses intact. [...] No history of macrovascular disease - [place]. Assessment & Plan (12/22/2021 4:00 PM CDT): [...] eye appt. - [facility] [place]. Monofilament foot exam completed, protective senses intact. [...] No history of macrovascular disease - [place]. Assessment & Plan (10/13/2021 12:30 PM CDT): [...] eye appt. - [facility] [place]. Monofilament foot exam completed, protective senses intact. [...] No history of macrovascular disease - [place]. Assessment & Plan (08/28/2021 1:10 PM CDT): [...] eye appt. - [facility] [place]. Monofilament foot exam completed, protective senses intact. [...] No history of macrovascular disease - [place]. Assessment & Plan (02/13/2021 1:06 PM CDT): This is a chronic condition which is improving hyperglycemia, not at goal has been back on insulin pump for the last 2 weeks. Personally reviewed A1c 9.3, not at goal less than 8% Medication- encouraged to return to [employer] sensor. Called [employer]Marimar Frias to check on Medtronic sensor replacement. Monitor blood sugar 4 times a day. Encouraged annual eye exam. dilated eye appt. - [facility] [place]. Monofilament foot exam completed, protective senses intact. [...] No history of macrovascular disease - [place]. Assessment & Plan (12/03/2020 3:41 PM CDT): This is a chronic condition which is uncontrolled with hyperglycemia, not at goal since removing insulin pump. Personally reviewed A1c 11.3 not at goal less than 8% Medication- encouraged to return to [employer] insulin pump and sensor. instructed to call [employer] induce safety checks with it telephone call Crew. Monitor blood sugar 4 times a day. Encouraged annual eye exam. dilated eye appt. Tomorrow at [facility] [place]. Monofilament foot exam completed, protective senses intact. [...] No history of macrovascular disease - [place]. Assessment & Plan (11/04/2020 5:29 PM CDT): This is a chronic condition which is uncontrolled with hyperglycemia, not at goal since removing insulin pump. Personally reviewed A1c today- 11.3 not at goal less than 8% Personally reviewed blood sugar -365 goal 80-180 Medication- encouraged to return to [email or web address] insulin pump and sensor. Monitor blood sugar 4 times a day. Encouraged annual eye exam. dilated eye appt. Tomorrow at [facility] [place]. Monofilament foot exam completed, protective senses intact. [...] No history of macrovascular disease - [place]. Assessment & Plan (05/13/2020 4:07 PM AMBULETTE DRIVER): This is a chronic condition which is unchanged and not at goal of less than 8% Personally Labs reviewed and insulin pump download Monitor blood sugar per sensor and bolus 4 + times a day. dilated eye exam is needed- encouraged eye exam- Completed at [facility] [place], [place] Monofilament foot exam completed, protective senses intact Urine microalbumin/creatinine ratio - normal (08/28/2019) Normal Kidney function eGRF- 128, BUN- 8, creatinine- 0.63 BP today- 130/72 currently on YOSEF/ARB- at goal of less than 140/90 for a person with diabetes. LDL - 128, currently not on a statin. Encouraged to reduce fast food intake. No history of macrovascular disease - [place]. Paired Guardian sensor to insulin pump, encouraged to return to wearing sensor and return to auto mode. Assessment & Plan (04/01/2020 3:53 PM AMBULETTE DRIVER): This is a chronic condition which is [...] No history of macrovascular disease - [place]. Instructed to return to wearing sensor and [...] No history of macrovascular disease - [place]. Assessment & Plan (10/04/2019 6:16 PM CDT): [...] daily dose : 53units Contacted Marimar Squires /[email or web address] with updated insurance information to resume insulin [...] day / basal amount: (57%) 30 units/day [place] change: every 2.4days, Set change- 2.4days Currently in manual mode Contacted Marimar Squires /[employer] for replacement sensor. Interpretation: Improved set and reservoir changes. will go back to wearing sensor. Improved blood sugars since back on insulin pump Assessment & Plan (12/03/2020 3:41 PM CDT): Currently not take wearing insulin pump after hospital stay with DKA at [facility]. Encouraged put insulin pump back on Assessment & Plan (05/13/2020 4:09 PM AMBULETTE DRIVER): Medtronic 670G pump is in Manual Mode 100% Auto Mode- 0%. Pump download obtained and scanned into the record. Basal at 1.10 units/hr. not wearing sensor - encouraged sensor Sensor Wear: 0% of the time Total daily dose : 44units Bolus amount: 20units/ day / basal amount: 24 units/day [place] change: every 2.6 days, Set change- 2.6 days Manual mode: basals: 1.10 unit/hr. IC : 0000-1:9, 0600 -1:10, 2000-9.0 S 35 Improved set and reservoir changes. States will go back to wearing sensor now that it is properly paired. Assessment & Plan (04/01/2020 3:57 PM AMBULETTE DRIVER): 03/19/2020 to 04/01/2020 Medtronic 670G pump is in Manual Mode 100% Auto Mode- 0%. Pump download obtained and scanned into the record. Basal at 1.10 units/hr. not wearing sensor - encouraged sensor Sensor Wear: 0% of the time Time in range:47% Hypoglycemia:6% 180-250- 19% 250-400-28% Total daily dose : 33units Bolus amount: 13units/ day / basal amount: 20 units/day [place] change: every 6 days, Set change- 3.7 [...] 22units/ day / basal amount: 25 units/day [place] change: 3.3 days Manual mode: basals: 1.10 unit/hr. IC : 0000-1:9, 0600 -1:10, 2000-9.0 S 35 Meet with [employer] for education on Tsure insertion set. Assessment [...] units/ day / basal amount: 18 units/day [place] change: 3.3 days Manual mode: basals: 1.20 unit/hr. IC : 1:9 S 35 Contact Medtr[employer] for auto mode training and switch to auto mode. Assessment & Plan (08/28/2019 3:51 PM CDT): Condition is new Starting settings will be basal rate [id number] 1units/hr Bolus Insulin sensitivity factor- 35 Insulin to carb ratio - 9 gm to 1 unit Medtronics to adjust as needed Follow up and download pump in one month after starting pump. 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 Social History Tobacco Use Types Packs/Day Years [...] on file Legal Sex Female 9:15 PM AMBULETTE DRIVER Gender Identity Not on file Sexual Orientation Not on file Last Filed Vital Signs Vital Sign Reading Time Taken Comments Blood Pressure 108/70 12/14/2023 2:43 PM CDT Pulse 100 2021 11:58 PM AMBULETTE DRIVER Temperature 36.9 C (98.5 F) 2021 11:58 PM AMBULETTE DRIVER Respiratory Rate 16 2021 11:58 PM AMBULETTE DRIVER Oxygen Saturation 100% 2021 11:58 PM AMBULETTE DRIVER Inhaled Oxygen Concentration - - Weight 77.2 kg (170 lb 3.2 oz) 12/14/2023 2:43 P M CDT Height 157.5 cm (5' 2 ) 12/14/2023 2:43 PM CDT Body Mass Index 31.13 12/14/2023 2:43 PM CDT Plan of Treatment Not on file Procedures Procedure Name Priority Date/Time Associated Diagnosis Comments POCT HEMOGLOBIN A1C Routine 12/14/2023 2:45 PM CDT Type 1 diabetes mellitus with hyperglycemia (HCC) TSH Routine 08/31/2023 EGFR Routine 06/01/2023 1:03 PM AMBULETTE DRIVER Type 1 diabetes mellitus with hyperglycemia (HCC) LIPID PANEL Routine 06/01/2023 1:03 PM AMBULETTE DRIVER Type 1 diabetes mellitus with hyperglycemia (HCC) ALBUMIN CREATININE RATIO, URINE Routine 06/01/2023 1:03 PM AMBULETTE DRIVER Type 1 diabetes mellitus with hyperglycemia (HCC) DIABETIC EYE EXAM Routine 07/14/2022 HM DIABETES FOOT EXAM Routine 05/20/2017 from Last 3 Months or Most Recently Relevant to Health Maintenance Results * (ABNORMAL) POCT hemoglobin A1c (12/14/2023 2:45 PM CDT) Hemoglobin A1C, POC 10.9 % Blood 12/14/2023 2:45 PM CDT us Tanisha K. Maximo SECURITY OPERATIONS ENGINEER POINT OF CARE TEST ORDERABLES F inal Result * TSH (08/31/2023) Scribed TSH 1.22 0.30 - 5.33 mcU/mL EXTERNAL LAB Blood 08/31/2023 Historical Provider MD LAB BLOOD ORDERABLES Mandie l Result EXTERNAL LAB * eGFR (06/01/2023 1:03 PM AMBULETTE DRIVER) eGFR 123 mL/min/1. 73 m2 MIKE WEBBER ([place]) Comment: Interpretive Data Reference Interval Normal >/= [...] last reviewed 2021. Blood 06/01/2023 1:03 PM AMBULETTE DRIVER 06/01/2023 1:25 PM AMBULETTE DRIVER us Tanisha Marsh SECURITY OPERATIONS ENGINEER LAB BLOOD ORDERABLES Final Resu lt MIKE WEBBER ([place]) 1 [facility] Department [place] [address] * Albumin Creatinine Ratio, Urine (06/01/2023 1:03 PM AMBULETTE DRIVER) Albumin Ur <12.0 mg/L MIKE Paredes ([place]) Comment: Interpretive Data No reference range established. Current interpretive data was last revised 2018. Testing performed by: [facility], [address] [place] [address]., [id number] Creatinine Ur 37.0 mg/dL MIKE WEBBER ([place]) Comment: Interpretive Data No reference range established. Current interpretive data was last revised 2018. Testing performed by: [facility], [address] [place] [address]., [id number] Albumin Creatinine Ratio, Ur See Comment 1 - 29 MIKE WEBBER ([place]) Comment: Unable to calculate Testing performed by: [facility], [address] [place] [address]., [id number] Urine 06/01/2023 1:03 PM AMBULETTE DRIVER 06/01/2023 4:58 PM AMBULETTE DRIVER us Tanisha Marsh NP LAB URINE ORDERABLES Final Resu lt MIKE JOHNSON) 1 [facility] Department [place] [address] * (ABNORMAL) Lipid panel (06/01/2023 1:03 PM AMBULETTE DRIVER) Cholesterol 213(H) 30 - 199 mg/dL MIKE [...] on 2017. Triglycerides 70 <=149 mg/dL MIKE JOHNSON) Comment: Interpretive Data Ages < or = [...] Pediatrics 2011;128:S213 2. NCEP Expert Panel. Circulation 2003;110:227 Current Interpretive Data was last revised on 2017. Non-HDL Cholesterol 151 mg/dL IMKE WEBBER ([place]) Comment: Interpretive Data Ages < [...] revised on 2017. Chol/HDL ratio 3 DEONDRE Simon [facility] ([place]) Blood 06/01/2023 1:03 PM AMBULETTE DRIVER 06/01/2023 1:25 PM AMBULETTE DRIVER Narrative [facility] ([place]) - 06/01/2023 2:20 PM AMBULETTE DRIVER These lab test should be done fasting. This means do not eat or drink for at least 12 hours prior to getting your blood drawn. Tanisha Marsh SECURITY OPERATIONS ENGINEER LAB BLOOD ORDERABLES Final Resu lt MIKE WEBBER ([place]) 1 [facility] Department [place] [address] * Diabetic Eye Exam (07/14/2022) Historical Provider HEALTH MAINTENANCE Edited Result - Final * DIABETES FOOT EXAM (05/20/2017) Diabetic Foot Exam Unknown Historical Provider HEALTH MAINTENANCE Final Result from Last 3 Months or Most Recently Relevant to Health Maintenance Insurance [facility] HMO [facility] CHOICE PLUS [facility] HMO/PPO Address: [facility] [address] [place] [address] [place] [phone] [facility] HMO/PPO Address: [address] [address] [place] [place] [phone] [facility] HMO/PPO Address: [address] [address] Care Teams Switch Adjuster Relationship Specialty Start Date End Date No, Physician PCP - General 05/18/23 Tanisha Marsh NP Nurse Practitioner Endocrinology Diabetes & Metabolism 03/03/20
--- OUTSIDE RECORDS SUMMARY | 2024-06-07 08:21 | XMS_ITS | Data Portability ---
Author Organization [facility] Address [address] [place] [address] Assessment No assessment recorded. Plan of Treatment Reminders Order Date Submit Date Provider Last Modified By Organization Details Last Modified Time Details Appointments ANNUAL 30 2024 01:30P M Argelia Velázquez-Sm ith, EARLY CHILDHOOD EDUCATION SPECIALIST-Bc Not available Not available Not available Lab mycopl asma genita lium DNA, qualit ative, PCR 2023 024 [facility], [address] [place] [address], [address], [place], [address], 10/02/2023 07:08:54 vagina l pathog ens panel, RIAN+pr obe, vagina l fluid 2023 024 [facility], [address] [place] [address], [address], [place], [address], 10/02/2023 07:08:53 urinal ysis, dipsti ck 2023 024 [id number] In-Office Order, Internal Use Only DO Not Attach Compendium DO Not Attach Compendium, Do Not Delete/merge, [id number] 12/15/2023 14:55:09 vagina l pathog ens panel, RIAN+pr obe, vagina l fluid 2023 024 [facility], [facility] [facility], [address], [place], [address], 12/17/2023 11:20:27 vagina l pathog ens panel, RIAN+pr obe, vagina l fluid 2023 [facility], [address] [place], [place] [address]blossom Roque, [address], [place], [address], 02/24/2024 07:15:36 HIV 1 + 2, meanin gful use set 2023 [facility], [address] [place] [address], [address], [place], [address], 02/23/2024 11:16:17 RPR (rapid plasma reagin ), serum 2023 [facility], [address] [place] [address], [address], [place], [address], 02/23/2024 11:16:15 HBsAg (hepat itis B surfac e Ag), EIA, serum 2023 [facility], [address] [place] [address], [address], [place], [address], 02/23/2024 11:16:14 Hepati tis C IgG Ab, qual, serum 2023 [facility], [address] [place] [address], [address], [place], [address], 02/23/2024 11:16:12 vagina l pathog ens panel, RIAN+pr obe, vagina l fluid 2023 024 [facility], [address] [place] [address], [address], [place], [address], 03/29/2024 07:14:51 cytolo gy report , thin prep, smear or scrapi ng, cervic al or vagina l - brush and broom 2024 025 [facility], [address] [facility], [address], [place], [address], 06/05/2024 12:49:39 Referral None record ed. Procedures None record ed. Surgeries None record ed. Imaging None record ed. Medication Orders tercon azole 0.8 % vagina l cream 2023 024 [facility], [facility] [address], [address], 05/30/2024 15:32:56 nystat in-tri amcino lone 100,00 0 unit/g yosef-0. 1 % topica l ointme nt 2023 024 [facility], [address] [place] [address], [address], 09/28/2023 12:35:24 Macrob id 100 mg capsul e 2023 025 [facility], [facility] [address], [address], 05/31/2024 10:03:36 tercon azole 0.8 % vagina l cream 2023 024 [facility]18, [facility] [address], [address], 05/30/2024 15:32:56 tercon azole 0.8 % vagina l cream 2023 025 [facility], [facility] [address], [address], 05/30/2024 15:33:08 Patient TargetsNo targets recorded. Patient Instructions Encounter Date Encounter Id Patient Instructions Last Modified By Organization Details Last Modified Time 05/30/2024 [id number] body mass index: care instructions deldredsmith Not available 05/30/2024 15:36:10 learning about healthy weight deldredsmith Not available 05/30/2024 15:36:10 Reason for Referral None Reported. Results Created Date Observation Date Name Description Value Unit Range Abnormal Flag Note LastModifiedBy Organization Detail LastModifiedTime 09/28/19 24 09/30/2023 NUSWA B VAGIN ITIS PLUS (VG+) atopobium vaginae HIGH - 2 score abnormal Not Available [facility] ([facility]) [address] [facility], [place], [address], 10/02/2023 07:08:53 09/28/19 24 09/30/2023 NUSWA B VAGIN ITIS PLUS (VG+) bvab 2 LOW - 0 score Not Available [facility] ([facility]) [address] [facility], [place], [address], 10/02/2023 07:08:53 09/28/19 24 09/30/2023 NUA B VAGIN ITIS PLUS (VG+) megasphaera 1 LOW - 0 score Calcu late total score by pepe g the 3 indiv idual bacte rial vagin osis (BV) marke r score s toget her. Total score is inter prete d as follo ws: Total score 0-1: Indic ates the absen ce of BV. Total score 2: Indet ermin ate for BV. Addit ional clini giacomo data shoul d be evalu ated to estab inés a diagn osis. Total score 3-6: Indic ates the prese nce of BV. Not Available [facility] ([facility]) [address] [facility], [place], [address], 10/02/2023 07:08:53 09/28/19 24 09/30/2023 NUA B VAGIN ITIS PLUS (VG+) trich vag by RIAN NEGATI VE negati ve Not Available [facility] ([facility]) [address] [facility], [place], [address], 10/02/2023 07:08:53 09/28/19 24 09/30/2023 NUA B VAGIN ITIS PLUS (VG+) chlamydia trachomatis, RIAN NEGATI VE negati ve Not Available [facility] ([facility]) [address] [place], [address], 10/02/2023 07:08:53 09/28/19 24 09/30/2023 NUSWA B VAGIN ITIS PLUS (VG+) neisseria gonorrhoeae, RIAN NEGATI VE negati ve Not Available [facility] ([facility]) [address] [place], [address], 10/02/2023 07:08:53 09/28/19 24 10/01/2023 NUA B VAGIN ITIS PLUS (VG+) ray albicans, RIAN POSITI VE negati ve abnormal Not Available [facility] ([facility]) [address] [place], [address], 10/02/2023 07:08:53 09/28/19 24 10/01/2023 NUA B VAGIN ITIS PLUS (VG+) ray glabrata, RIAN NEGATI VE negati ve Not Available [facility] ([facility]) [address] [place], [address], 10/02/2023 07:08:53 09/28/19 24 09/30/2023 M GENIT ALIUM RIAN, SWAB mycoplasma genitalium RIAN NEGATI VE negati ve Not Available [facility] ([facility]) [address] [place], [address], 10/02/2023 07:08:54 12/15/19 24 12/16/2023 NUA B VAGIN ITIS PLUS (VG+) atopobium vaginae MODERA TE - 1 score Not Available [facility] ([facility]) [address] [place], [address], 12/17/2023 11:20:27 12/15/19 24 12/16/2023 NUSWA B VAGIN ITIS PLUS (VG+) bvab 2 LOW - 0 score Not Available [facility] ([facility]) [address] [facility], [place], [address], 12/17/2023 11:20:27 12/15/19 24 12/16/2023 NUSWA B VAGIN ITIS PLUS (VG+) megasphaera 1 LOW - 0 score Calcu late total score by pepe g the 3 indiv idual bacte rial vagin osis (BV) marke r score s toget her. Total score is inter prete d as follo ws: Total score 0-1: Indic ates the absen ce of BV. Total score 2: Indet ermin ate for BV. Addit ional clini giacomo data shoul d be evalu ated to estab inés a diagn osis. Total score 3-6: Indic ates the prese nce of BV. Not Available [facility] ([facility]) [address] [facility], [place], [address], 12/17/2023 11:20:27 12/15/19 24 12/16/2023 NUA B VAGIN ITIS PLUS (VG+) ray albicans, RIAN NEGATI VE negati ve Not Available [facility] ([facility]) [address] [place], [address], 12/17/2023 11:20:27 12/15/19 24 12/16/2023 NUA B VAGIN ITIS PLUS (VG+) ray glabrata, RIAN NEGATI VE negati ve Not Available [facility] ([facility]) [address] [place], [address], 12/17/2023 11:20:27 12/15/19 24 12/17/2023 NUA B VAGIN ITIS PLUS (VG+) trich vag by RIAN NEGATI VE negati ve Not Available [facility] ([facility]) [address] [place], [address], 12/17/2023 11:20:27 12/15/19 24 12/17/2023 NUSWA B VAGIN ITIS PLUS (VG+) chlamydia trachomatis, RIAN NEGATI VE negati ve Not Available [facility] ([facility]) [address] [facility], [place], [address], 12/17/2023 11:20:27 12/15/19 24 12/17/2023 NUSWA B VAGIN ITIS PLUS (VG+) neisseria gonorrhoeae, RIAN NEGATI VE negati ve Not Available [facility] ([facility]) [address] [facility], [place], [address], 12/17/2023 11:20:27 12/15/19 24 12/15/2023 urina lysis , dipst ick Leukocytes Negati ve Not Available In-Office Order Internal Use Only DO Not Attach Compendium DO Not Attach Compendium, Do Not Delete/merge, [id number] 12/15/2023 14:45:17 12/15/19 24 12/15/2023 urina lysis , dipst ick Nitrite negati ve Not Available In-Office Order Internal Use Only DO Not Attach Compendium DO Not Attach Compendium, Do Not Delete/merge, 12/15/2023 14:45:17 12/15/19 24 12/15/2023 urina lysis , dipst ick Urobilinogen .2 Not Available In-Of fice Order Internal Use Only DO Not Attach Compendium DO Not Attach Compendium, Do Not Delete/merge, [id number] 12/15/2023 14:45:17 12/15/19 24 12/15/2023 urina lysis , dipst ick Protein Negati ve Not Available In-Office Order Internal Use Only DO Not Attach Compendium DO Not Attach Compendium, Do Not Delete/merge, [id number] 12/15/2023 14:45:17 12/15/19 24 12/15/2023 urina lysis , dipst ick pH 5.0 Not Available In-Office Order Internal Use Only DO Not Attach Compendium DO Not Attach Compendium, Do Not Delete/merge, [id number] 12/15/2023 14:45:17 12/15/19 24 12/15/2023 urina lysis , dipst ick Blood Non-He molyze d: Trace Not Available In-Office Order Internal Use Only DO Not Attach Compendium DO Not Attach Compendium, Do Not Delete/merge, 12/15/2023 14:45:17 12/15/19 24 12/15/2023 urina lysis , dipst ick Specific [place] 1.015 Not Available In-Off ice Order Internal Use Only DO Not Attach Compendium DO Not Attach Compendium, Do Not Delete/merge, 12/15/2023 14:45:17 12/15/19 24 12/15/2023 urina lysis , dipst ick Ketone Large (80) Not Available In-Office Order Internal Use Only DO Not Attach Compendium DO Not Attach Compendium, Do Not Delete/merge, 12/15/2023 14:45:17 12/15/19 24 12/15/2023 urina lysis , dipst ick Bilirubin Negati ve Not Available In-Office Order Internal Use Only DO Not Attach Compendium DO Not Attach Compendium, Do Not Delete/merge, 12/15/2023 14:45:17 12/15/19 24 12/15/2023 urina lysis , dipst ick Glucose 500 Not Available In-Office Order Internal Use Only DO Not Attach Compendium DO Not Attach Compendium, Do Not Delete/merge, 12/15/2023 14:45:17 12/15/19 24 12/15/2023 urina lysis , dipst ick Appearance Clear Not Available In-Offi ce Order Internal Use Only DO Not Attach Compendium DO Not Attach Compendium, Do Not Delete/merge, 12/15/2023 14:45:17 12/15/19 24 12/15/2023 urina lysis , dipst ick Color Pale Yellow Not Available In-Office Order Internal Use Only DO Not Attach Compendium DO Not Attach Compendium, Do Not Delete/merge, 12/15/2023 14:45:17 02/22/20 24 02/23/2024 HCV ANTIB ASHANTI hep C virus Ab NON REACTI VE nonrea ctive HCV antib ashanti alone does not diffe renti ate betwe en previ ously resol mirtha infec tion and activ e infec tion. Equiv ocal and React ligia HCV antib ashanti resul ts shoul d be follo wed up with an HCV RNA test to suppo rt the diagn osis of activ e HCV infec tion. Not Available [facility] ([facility]) [address] [facility], [place], [address], 02/23/2024 11:16:12 02/22/2002/23/2024 HBSAG SCREE N HBsAg screen NEGATI VE negati ve Not Available [facility] ([facility]) [address] [facility], [place], [address], 02/23/2024 11:16:13 02/22/2002/23/2024 RPR, RFX QN RPR/C ONFIR M TP RPR NON REACTI VE nonrea ctive Not Available [facility] ([facility]) [address] [facility], [place], [address], 02/23/2024 11:16:15 02/22/2002/23/2024 HIV AB/P2 4 AG WITH REFLE X HIV Ab/P24 Ag screen NON REACTI VE nonrea ctive HIV-1 /HIV- 2 antib odies and HIV-1 p24 antig en were NOT detec jabari. There is no labor atory evide nce of HIV infec tion. HIV Negat ligia Not Available [facility] ([facility]) [address] [facility], [place], [address], 02/23/2024 11:16:16 02/22/2002/23/2024 NUSWA B VAGIN ITIS PLUS (VG+) atopobium vaginae HIGH - 2 score abnormal Not Available [facility] ([facility]) [address] [place], [address], 02/24/2024 07:15:36 02/22/2002/23/2024 NUSWA B VAGIN ITIS PLUS (VG+) bvab 2 LOW - 0 score Not Available [facility] ([facility]) [address] [place], [address], 02/24/2024 07:15:36 02/22/2002/23/2024 NUSWA B VAGIN ITIS PLUS (VG+) megasphaera 1 LOW - 0 score Calcu late total score by pepe gómez the 3 indiv idual bacte rial vagin osis (BV) marke r score s toget her. Total score is inter prete d as follo ws: Total score 0-1: Indic ates the absen ce of BV. Total score 2: Indet ermin ate for BV. Addit ional clini giacomo data shoul d be evalu ated to estab inés a diagn osis. Total score 3-6: Indic ates the prese nce of BV. Not Available [facility] ([facility]) [address] [facility], [place], [address], 02/24/2024 07:15:36 02/22/2002/23/2024 NUSWA B VAGIN ITIS PLUS (VG+) ray albicans, RIAN NEGATI VE negati ve Not Available [facility] ([facility]) [address] [place], [address], 02/24/2024 07:15:36 02/22/2002/23/2024 NUSWA B VAGIN ITIS PLUS (VG+) ray glabrata, RIAN NEGATI VE negati ve Not Available [facility] ([facility]) [address] [place], [address], 02/24/2024 07:15:36 02/22/2002/24/2024 NUSWA B VAGIN ITIS PLUS (VG+) trich vag by RIAN NEGATI VE negati ve Not Available [facility] ([facility]) [address] [place], [address], 02/24/2024 07:15:36 02/22/20 24 02/24/2024 NUSWA B VAGIN ITIS PLUS (VG+) chlamydia trachomatis, RIAN NEGATI VE negati ve Not Available [facility] ([facility]) [address] [facility], [place], [address], 02/24/2024 07:15:36 02/22/2002/24/2024 NUSWA B VAGIN ITIS PLUS (VG+) neisseria gonorrhoeae, RIAN NEGATI VE negati ve Not Available [facility] ([facility]) [address] [facility], [place], [address], 02/24/2024 07:15:36 03/27/2003/28/2024 NUSWA B VAGIN ITIS PLUS (VG+) atopobium vaginae LOW - 0 score Not Available [facility] ([facility]) [address] [facility], [place], [address], 03/29/2024 07:14:50 03/27/2003/28/2024 NUSWA B VAGIN ITIS PLUS (VG+) bvab 2 LOW - 0 score Not Available [facility] ([facility]) [address] [place], [address], 03/29/2024 07:14:50 03/27/2003/28/2024 NUSWA B VAGIN ITIS PLUS (VG+) megasphaera 1 LOW - 0 score Calcu late total score by pepe g the 3 indiv idual bacte rial vagin osis (BV) marke r score s toget her. Total score is inter prete d as follo ws: Total score 0-1: Indic ates the absen ce of BV. Total score 2: Indet ermin ate for BV. Addit ional clini giacomo data shoul d be evalu ated to estab inés a diagn osis. Total score 3-6: Indic ates the prese nce of BV. Not Available [facility] ([facility]) [address] [place], [address], 03/29/2024 07:14:50 03/27/2003/28/2024 NUA B VAGIN ITIS PLUS (VG+) ray albicans, RIAN NEGATI VE negati ve Not Available [facility] ([facility]) [address] [facility], [place], [address], 03/29/2024 07:14:50 03/27/2003/28/2024 NUA B VAGIN ITIS PLUS (VG+) ray glabrata, RIAN NEGATI VE negati ve Not Available [facility] ([facility]) [address] [facility], [place], [address], 03/29/2024 07:14:50 03/27/2003/28/2024 NUA B VAGIN ITIS PLUS (VG+) trich vag by RIAN NEGATI VE negati ve Not Available [facility] ([facility]) [address] [facility], [place], [address], 03/29/2024 07:14:50 03/27/2003/28/2024 NUA B VAGIN ITIS PLUS (VG+) chlamydia trachomatis, RIAN NEGATI VE negati ve Not Available [facility] ([facility]) [address] [facility], [place], [address], 03/29/2024 07:14:50 03/27/20 24 03/28/2024 NUA B VAGIN ITIS PLUS (VG+) neisseria gonorrhoeae, RIAN NEGATI VE negati ve Not Available [facility] ([facility]) [address] [facility], [place], [address], 03/29/2024 07:14:50 05/30/19 25 05/31/2024 HCV ANTIB ASHANTI hep C virus Ab NON REACTI VE nonrea ctive HCV antib ashanti alone does not diffe renti ate betwe en previ ously resol mirtha infec tion and activ e infec tion. Equiv ocal and React ligia HCV antib ashanti resul ts shoul d be follo wed up with an HCV RNA test to suppo rt the diagn osis of activ e HCV infec tion. Not Available [facility] ([facility]) [address] [facility], [place], [address], 05/31/2024 11:16:21 05/30/19 25 05/31/2024 HSV-2 AB, IGG hsv 2 IgG, type spec NON REACTI VE nonrea ctive Ple ase note refer ence inter александр myers e Curre nt guide lines and recom menda tions do not recom mend routi ne scree dax for HSV-2 in asymp tomat ic indiv idual s, inclu ding those that are pregn ant. The detec tion of HSV-2 IgG antib odies in a singl e sampl e indic ates previ ous expos ure to HSV-2 but does not give infor matio n as to the site of HSV infec tion or the timin g of expos ure. The predi ctive value of posit ligia and negat ligia resul ts depen ds on the popul ation 's preva lence and the prete st likel ihood of HSV-2 . HSV-2 IgG testi ng perfo rmed using the [employer] HSV-2 IgG assay . Not Available [facility] ([facility]) [address] [facility], [place], [address], 05/31/2024 11:16:22 05/30/1905/31/2024 HBSAG SCREE N HBsAg screen NEGATI VE negati ve Not Available [facility] ([facility]) [address] [facility], [place], [address], 05/31/2024 11:16:24 05/30/1905/31/2024 RPR, RFX QN RPR/C ONFIR M TP RPR NON REACTI VE nonrea ctive Not Available [facility] ([facility]) [address] [facility], [place], [address], 05/31/2024 11:16:25 05/30/19 25 05/31/2024 HIV AB/P2 4 AG WITH REFLE X HIV Ab/P24 Ag screen NON REACTI VE nonrea ctive HIV-1 /HIV- 2 antib odies and HIV-1 p24 antig en were NOT detec jabari. There is no labor atory evide nce of HIV infec tion. HIV Negat ligia Not Available [facility] ([facility]) [address] [facility], [place], [address], 05/31/2024 11:16:26 05/30/19 25 06/01/2024 IGP,C TNGTV ,APT HPV,R FX16/ 18,45 HPV aptima NEGATI VE negati ve This nucle ic acid ampli ficat ion test detec ts fourt een high- risk HPV types (16,1 8,31, 33,35 ,39,4 5,51, 52,56 ,58,5 9,66, 68) witho ut diffe renti ation . Not Available [facility] ([facility]) [address] [facility], [place], [address], 06/05/2024 12:49:39 05/30/19 25 06/01/2024 IGP,C TNGTV ,APT HPV,R FX16/ 18,45 chlamydia, nuc. acid amp NEGATI VE negati ve Not Available [facility] ([facility]) [address] [facility], [place], [address], 06/05/2024 12:49:39 05/30/19 25 06/01/2024 IGP,C TNGTV ,APT HPV,R FX16/ 18,45 gonococcus, nuc. acid amp NEGATI VE negati ve Not Available [facility] ([facility]) [address] [place], [address], 06/05/2024 12:49:39 05/30/19 25 06/01/2024 IGP,C TNGTV ,APT HPV,R FX16/ 18,45 trich vag by RIAN NEGATI VE negati ve Not Available [facility] ([facility]) [address] [facility], [place], [address], 06/05/2024 12:49:39 05/30/1906/05/2024 IGP,C TNGTV ,APT HPV,R FX16/ 18,45 diagnosis: KEYLA ALVARADO LIGIA FOR INTRA EPITH ELIAL LESIO N OR INGRID PASTRANA . THIS SPECI MEN WAS RESCR EENED PART OF OUR QUALI TY CONTR OL PROGR AM. Not Available [facility] ([facility]) [address] [facility], [place], [address], 06/05/2024 12:49:39 05/30/1906/05/2024 IGP,C TNGTV ,APT HPV,R FX16/ 18,45 specimen adequacy: KEYLA Gale Satis facto ny for evalu ation . Endoc ervic al and/o r squam ous metap lasti c cells (endo cervi giacomo compo nent) are prese nt. Not Available [facility] ([facility]) [address] [facility], [place], [address], 06/05/2024 12:49:39 05/30/1906/05/2024 IGP,C TNGTV ,APT HPV,R FX16/ 18,45 clinician provided ICD10: KEYLA Gale Z87.4 2 Not Available [facility] ([facility]) [address] [facility], [place], [address], 06/05/2024 12:49:39 05/30/1906/05/2024 IGP,C TNGTV ,APT HPV,R FX16/ 18,45 performed by: KEYLA rosenbaum, Dahlia gale (ASCP ) Not Available [facility] ([facility]) [address] [facility], [place], [address], 06/05/2024 12:49:39 05/30/19 25 06/05/2024 IGP,C TNGTV ,APT HPV,R FX16/ 18,45 QC reviewed by: KEYLA andersen Nesmi th, Cytot echnaomy grubbs t (ASCP ) Not Available [facility] ([facility]) [address] [place], [address], 06/05/2024 12:49:39 05/30/19 25 06/05/2024 IGP,C TNGTV ,APT HPV,R FX16/ 18,45 . . Not Available [facility] ([facility]) [address] [facility], [place], [address], 06/05/2024 12:49:39 05/30/19 25 06/05/2024 IGP,C TNGTV ,APT HPV,R FX16/ 18,45 note: KEYLA Gale The Pap smear is a scree dax test desig andre to aid in the detec tion of jessica ligna nt and malig nant condi tions of the uteri ne cervi x. It is not a diagn ostic proce dure and shoul d not be used as the sole means of detec ting cervi giacomo cance r. Both false -posi tive and false -nega tive repor ts do occur . Not Available [facility] ([facility]) [address] [facility], [place], [address], 06/05/2024 12:49:39 05/30/19 25 06/05/2024 IGP,C TNGTV ,APT HPV,R FX16/ 18,45 test methodology: KEYLA Gale This liqui d based ThinP rep(R ) pap test was scree andre with the use of an image guide carrington martínez. Not Available [facility] ([facility]) [address] [facility], [place], [address], 06/05/2024 12:49:39 05/30/19 25 06/05/2024 IGP,C TNGTV ,APT HPV,R FX16/ 18,45 HPV genotype reflex KEYLA Gale Crite skye not met, HPV Genot ype not perfo rmed. Not Available [facility] ([facility]) [address] [facility], [place], [address], 06/05/2024 12:49:39 Result Notes None recorded. Problems Name Problem SNOMED Code Status Onset Date Resolution Date Notes Provider Name and Address Organization Details Recorded Time Type 1 diabetes mellitus 57666302 Active 019 Shiva Bryant null, [place] - [facility] 9 15:44:41 Vaginal irritation 851560524 Active 020 ADARSH Simental [place] [facility] 0 11:18:51 Vaginal discharge 729800343 Active 021 ADARSH Simental [place], [place] [facility] 1 15:09:31 Problem Notes None recorded. Procedures Surgical History Date Name Laterality Status Provider Name and Address Organization Details Recorded Time 06/01/19 24 Colposcopy completed Boston Johnson MD Attn: Accounting,[address] [facility], [place], [address], [facility] - [facility] 06/01/2023 16:15:44 05/11/19 24 Date of Last Pap Smear completed ADARSH Simental [place] - [place] 07/18/2023 15:57:19 Tonsillectomy completed Meka Sheth MA [place] - [facility] 08/09/2018 15:29:13 Imaging Results None recorded. Procedure Notes None recorded. Medical Equipment None Reported. Allergies No known drug allergies Medications Name Sig Start Date Stop Date Status Note LastModified by Organization Details LastModified Time atorvastati n 20 mg tablet 02/17 completed Not Available Not Available Not Available Glucagon Emergency Kit 1 mg solution for injection 02/17 completed Not Available Not Available Not Available fluconazole 150 mg tablet Take 1 tablet every day by oral route for 1 day. 05/30 completed Not Available Not Available Not Available fluconazole 200 mg tablet 05/11 completed Not Available Not Available Not Available phenazopyri dine 200 mg tablet Take 1 tablet 3 times a day by oral route for 2 days. 02/17 completed Not Available Not Available Not Available metronidazo le 0.75 % (37.5 mg/5 gram) vaginal gel INSERT 1 APPLICATO RFUL VAGINALLY ONCE DAILY AT BEDTIME FOR 5 DAYS 12/14 completed Not Available Not Available Not Available ceftriaxone 250 mg solution for injection Take 1 mg by injection route. 10/02 completed Not Available Not Available Not Available terconazole 0.8 % vaginal cream Insert 1 applicato rful every day by vaginal route at bedtime for 3 days. 05/30 completed Not Available Not Available Not Available miconazole nitrate 2 % vaginal cream INSERT ONE APPLICATO RFUL VAGINALLY AT BEDTIME FOR 7 DAYS 02/17 completed Not Available Not Available Not Available Lantus U-100 Insulin 100 unit/mL subcutaneou s solution INJECT 32 UNITS SUBCUTANE OUSLY ONCE DAILY active Not Available Not Available No t Available penicillin V potassium 500 mg tablet TAKE 1 TABLET BY MOUTH EVERY 6 HOURS 12/14 completed Not Available Not Available Not Available metronidazo le 500 mg tablet TAKE 1 TABLET BY MOUTH TWICE DAILY FOR 7 DAYS , TAKE WITH FOOD 05/30 completed Not Available Not Available Not Available sulfamethox azole 800 mg-trimetho prim 160 mg tablet 02/17 completed Not Available Not Available Not Available amoxicillin 500 mg tablet TAKE 1 TABLET BY MOUTH EVERY 8 HOURS 07/26 completed Not Available Not Available Not Available nystatin-tr iamcinolone 100,000 unit/gram-0 .1 % topical ointment APPLY OINTMENT TOPICALLY TO AFFECTED AREA TWICE DAILY active Not Available Not Available No t Available Humalog U-100 Insulin 100 unit/mL subcutaneou s solution INJECT 65 UNITS SUBCUTANE OUSLY ONCE DAILY IN INSULIN PUMP active Not Available Not Available No t Available cephalexin 500 mg capsule TAKE 1 CAPSULE BY MOUTH EVERY 12 HOURS FOR 5 DAYS 02/17 completed Not Available Not Available Not Available doxycycline hyclate 100 mg tablet TAKE 1 TABLET BY MOUTH TWICE DAILY FOR 7 DAYS 02/17 completed Not Available Not Available Not Available Ketostix strips 02/17 completed Not Available Not Available Not Available amoxicillin 875 mg-potassiu m clavulanate 125 mg tablet TAKE 1 TABLET BY MOUTH EVERY 12 HOURS UNTIL ALL TAKEN 07/26 completed Not Available Not Available Not Available insulin lispro (U-100) 100 unit/mL subcutaneou s pen INJECT 1 UNIT FOR EVERY 10 CARBS AND A 1 TO 50 CORRECTIO N. MAX DAILY DOSE OF 50 UNITS active Not Available Not Available No t Available azithromyci n 500 mg tablet TAKE 2 TABLETS BY MOUTH ONCE DAILY FOR 1 DAY 08/13 completed Not Available Not Available Not Available nitrofurant oin monohydrate /macrocryst als 100 mg capsule TAKE 1 CAPSULE BY MOUTH EVERY 12 HOURS 05/30 completed Not Available Not Available Not Available emtricitabi ne 200 mg-tenofovi r disoproxil fumarate 300 mg tablet TAKE 1 Tablet BY MOUTH EVERY DAY 06/01 completed Not Available Not Available Not Available chlorhexidi ne gluconate 0.12 % mouthwash RINSE 15 ML IN MOUTH TWICE DAILY 03/19 completed Not Available Not Available Not Available insulin pump cartridge subcutaneou s Inject by subcutane ous route. 09/14 completed Not Available Not Available Not Available Lantus Solostar U-100 Insulin 100 unit/mL (3 mL) subcutaneou s pen active Not Available Not Available Not Available Afrezza 4 unit (60)/8 unit (60)/12 unit (60) cartridge with inhaler 12/14 completed Not Available Not Available Not Available TRUEplus Pen Needle 32 gauge x 32 active Not Available Not Available Not Available Baqsimi 3 mg/actuatio n nasal spray ADMINISTE R 1 SPRAY INTO 1 NOSTRIL NEEDED FOR SEVERE HYPOGLYCE HENRIQUE REQUIRING THE ASSISTANC E OF ANOTHER active Not Available Not Available No t Available ID NOW COVID-19 Test Kit TEST DIRECTED TODAY 02/17 completed Not Available Not Available Not Available COVID-19 test specimen collection TEST DIRECTED 05/05 completed Not Available Not Available Not Available FreeStyle Ramses 2 Sensor kit USE 1 SENSOR TO CHECK BLOOD GLUCOSE EVERY 14 DAYS active Not Available Not Available No t Available Vitals Date Recorded Body height Body mass index (BMI) Body weight Systolic blood pressure Diastolic blood pressure Provider Name and Address Organization Details Last Updated DateTime 09/28/2023 157.48 cm 31.5 kg/m2 01585.89 g 126 mm[Hg] 74 mm[Hg] ADARSH Simental [place] [facility] 05/29/202 4 11:41:36 Date Recorded Body height Body mass index (BMI) Body weight Heart rate Respiratory rate Systolic blood pressure Diastolic blood pressure Provider Name and Address Organization Details Last Updated DateTime 157.48 cm 31.2 kg/m2 81701.8 9 g 92 /min 16 /min 129 mm[Hg] 83 mm[Hg] Laurie Tristan Wero [facility] 4 14:44:37 Date Recorded Body height Body mass index (BMI) Body weight Systolic blood pressure Diastolic blood pressure Provider Name and Address Organization Details Last Updated DateTime 02/22/2024 157.48 cm 32 kg/m2 99502.66 g 134 mm[Hg] 86 mm[Hg] Nancie Dimas Dania [facility] 4 16:11:18 Date Recorded Body height Body mass index (BMI) Body weight Systolic blood pressure Diastolic blood pressure Provider Name and Address Organization Details Last Updated DateTime 03/27/2024 157.48 cm 30.9 kg/m2 95780.54 g 118 mm[Hg] 76 mm[Hg] Nancie Dimas Dania [facility] 4 16:01:48 Date Recorded Body height Body mass index (BMI) Body weight Systolic blood pressure Diastolic blood pressure Provider Name and Address Organization Details Last Updated DateTime 05/30/2024 157.48 cm 31.5 kg/m2 32343.89 g 121 mm[Hg] 76 mm[Hg] Nancie Dimas Dania [facility] 5 15:27:31 Social History Question Answer Notes LastModified by Organizat ion Details LastModified Time Tobacco Smoking Status Never Smoker RAUL Abdul, [facility] 08/09/2018 15:28:51 Do You Have An Advance Directive? No Information not available 02/27/2020 What Is Your Level Of Alcohol Consumption? Occasional [email or web address] Information not available 08/09/2018 Is Blood Transfusion Acceptable In An Emergency? Yes Information not available 02/27/2020 What Is Your Level Of Caffeine Consumption? Moderate Information not available 02/27/2020 How Much Tobacco Do You Chew? None Information not available 02/27/2020 In The 14 Days Before Symptom Onset, Have You Had Close Contact With A Laboratory-confir med COVID-19 While That Case Was Ill? No Information not available 03/19/2021 In The 14 Days Before Symptom Onset, Have You Had Close Contact With A Person Who Is Under Investigation For COVID-19 While That Person Was Ill? No Information not available 03/19/2021 Have You Been To An Area Known To Be High Risk For COVID-19? No Information not available 03/19/2021 Are You Currently Employed? Yes Information not available 02/27/2020 What Type Of Diet Are You Following? REGULAR Information not available 02/27/2020 Which Illicit Or Recreational Drugs Have You Used? Denies Information not available 02/27/2020 Do You Or Have You Ever Used E-cigarettes Or Vape? Never Used Electronic Cigarettes Information not available 06/28/2019 Education 12 Information no t available 02/27/2020 What Is The Highest Grade Or Level Of School You Have Completed Or The Highest Degree You Have Received? 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 No Information no t available 03/19/2021 Live Alone Or With Others? With Others Sister Information not available 02/27/2020 What Was The Date Of Your Most Recent Tobacco Screening? 05/30/2024 Information not available 05/30/2024 How Many Children Do You Have? 0 Information not available 04/01/2020 Performs Monthly Self-breast Exam? No Information no t available 02/27/2020 Do You Have Any Pets? Yes X1 Dog Information not available 03/19/2021 Do You Use Protection During Sex? No Information not available 02/27/2020 What Is Your Relationship Status? Single Information not available 02/27/2020 Do You Use Your Seat Belt Or Car Seat Routinely? Yes Information not available 03/19/2021 Seat Belts Used Routinely Yes Information not available 02/27/2020 Are You Sexually Active? Yes Information not available 02/27/2020 Do You Have Smoke And Carbon Monoxide Detectors In Your Home? Yes Information not available 03/19/2021 Are You Passively Exposed To Smoke? No Information no t available 03/19/2021 Do You Or Have You Ever Used Smokeless Tobacco? Never Used Smokeless Tobacco Information not available 06/28/2019 How Much Tobacco Do You Smoke? No Information not available 08/08/2019 General Stress Level Low Information not available 02/27/2020 Do You Feel Stressed (tense, Restless, Nervous, Or Anxious, Or Unable To Sleep At Night)? [id number] Information not available 03/19/2021 Do You Use Any Illicit Or Recreational Drugs? No Information not available 03/19/2021 Do You Use Sunscreen Routinely? No Information not available 02/27/2020 Has Tobacco Cessation Counseling Been Provided? Yes Information not available 06/09/2022 On What Date Was Tobacco Cessation Counseling Provided? 05/30/2024 Information not available 05/30/2024 Do You Or Have You Ever Used Any Other Forms Of Tobacco Or Nicotine? No [email or web address] Information not available 05/05/2021 Sex: Female Functional Status Question Answer Note LastModified by Organizat ion Details LastModified Time What is your exercise level? Occasional Information not available 02/27/2020 Mental Status None recorded. Family History Relationship Description Onset Age of this Age Resolved Age Notes LastModified by Organization Details LastModified Time Maternal Grandmother Diabetes mellitus [email or web address] Not available 2018 15:28:22 Mother Hypertensive disorder [email or web address] Not available 2021 10:07:58 Maternal Uncle Diabetes mellitus Not available 2021 10:08:23 Maternal Uncle Diabetes mellitus Not available 2021 10:08:26 Medical History Condition Response Other N High Blood Pressure N Breast Cancer N Thyroid Problems N Kidney or Bladder Problems N GI Problems N Depression N Blood Clots N Lung Disease N Acne N Breast Problem N Eating Disorder N Anemia N Anesthesia Complications N Headaches/Migraines N Anxiety Disorder N Diabetes Y Ovarian Cancer N Muscle, Joint, or Bone Problems N Blood Transfusions N Seizures/Epilepsy N Polyps N Infertility N Acid Reflux (GERD) N Cancer N Abuse/Domestic Violence N Asthma N Endometriosis N High Cholesterol N Hepatitis N Liver Disease N Heart Disease N Pre-Eclampsia N Osteoporosis N Gynecological History Statement/Question Response Abnormal Pap Yes Flow Moderate Date of LMP 11/20/2023 STIs/STDs Yes HPV Vaccine Y Duration of Flow (days) 5 Current Control Method None Frequency of Cycle (Q days) 28 Sexually Active? Y Menses Monthly Y Date of Last Pap Smear 05/11/2023 Sexual Problems? N LMP Approximate Obstetrics History GPAL:G 0 P 0 0 0 0 Past Encounters Encounter ID Performer Location Encounter Start Date Encounter Closed Date Diagnosis/Indication Diagnosis SNOMED-CT Code Diagnosis ICD10 Code Diagnosis Note [id number] Shiva Raymond [address] [place] [address] 08/09/2018 15:08:01 08/23/2018 09:56:54 Type 1 diabetes mellitus 07758544 E10.9 [id number] Shiva Raymond [address] [place] [address] 01/04/2019 16:19:43 01/19/2019 10:06:31 Type 1 diabetes mellitus 98212374 E10.9 [id number] JEAN Jauregui [address] [place] [address] 05/10/2019 13:07:54 05/10/2019 16:47:01 Venereal disease screening 661670786 Z11.3 urine collected and sent to lab. Counseled on safe sex, condom use and STD precaution s discussed screening completed per patient's request [id number] JEAN Jauregui [address] [place] [address] 06/28/2019 10:30:44 06/29/2019 09:28:38 Gynecologic examination 15258274 Z01.419 -Educated on the importance of SBE and awareness. -Discussed the importance of cervical cancer screenings -Educated osteoporos is prevention including calcium rich foods, weight bearing exercise. -Discussed the importance of exercise. -Nutrition discussed and the importance of a diet rich in fruits, vegetable, whole grains, and lean proteins. -Counseled regarding prevention of STD's and screening options, condom use and prevention . -Advised avoidance of tobacco, alcohol, and drugs. Dysuria 58379402 R30.9 UA negative for signs of infection. Vaginal swab and urine culture sent. pt notified to call office if symptoms worsen. pt notified glucose in urine and need to follow up with pcp/ Vaginal discharge 960708 006 N89.8 Educated patient on vulvar hygiene and use condoms during sex. swab obtained and sent to lab. Pt treated empiricall y for yeast infection. Pt educated on importance of glucose control . Body mass index 30+ - obesity 746562052 Z68.31 Pt educated on risks of obesity and importance of lifestyle modificati ons. Pt notified to continue to follow up with pcp. Type 1 sagrario betes mellitus 52259275 E10.9 Pt educated on the importance of glucose control. Pt notified to continue to follow up with PCP. Pt requested family educator referral. Referral ordered. Pt notified referral dept will contact her about referral and if she does not hear from us or family educator within 1 week she needs to call the office. [facility] nning surveillance [id number] Z30.09 Discussed contracept ion methods. Patient not interested in any methods other than condoms at this time. Patient aware of her increased risk for unplanned . Patient advised to do 400 mcg folic acid supplement to help prevent against NTD if unplanned occurs [id number] Shiva Raymond [address] [place] [address] 07/19/2019 16:24:18 07/23/2019 14:33:46 Type 1 diabetes mellitus 21612736 E10.9 Completed paperwork for insulin pump If approved will let endo. regulate pump [id number] JEAN Jauregui [address] [place] [address] 07/24/2019 11:38:46 07/25/2019 10:24:27 Exposure to Neisseria gonorrhoeae 631638007 Z20.2 Patient educated about STI and treatment. Take complete course of antibiotic , no intercours e until 7 days after course completed, use condoms at all times, good vulvar hygiene, notify partner of infection and the need to be treated. follow up in 12 weeks for DILIA or call office if issue occurs High risk sexual behavior 239510130 Z72.51 sample collected and sent to lab. Counseled on safe sex, condom use and STD precaution s discussed screening completed per patient's request Exposure t o Chlamydia trachomatis 743736596 Z20.2 Patient educated about STI and treatment. Take complete course of antibiotic , no intercours e until 7 days after course completed, use condoms at all times, good vulvar hygiene, notify partner of infection and the need to be treated. follow up in 12 weeks for DILIA or call office if issue occurs [id number] JEAN Jauregui [address] [place] [address] 08/08/2019 08:35:36 08/09/2019 09:45:15 Vaginal irritation 657585244 N89.8 Educated patient on vulvar hygiene and std prevention . Pt treated empiricall y for yeast infection. Pt notified to call office if symptoms do not resolve with treatment. [id number] JEAN Jauregui [address] [place] [address] 10/03/2019 10:41:06 10/04/2019 11:32:02 Candidiasis of vagina 61308916 B37.3 Pt treated empiricall y for yeast infection. Pt notified to call office if symptoms worsen or do not resolve with treatment. Pt educated on importance of glucose control. Pt verbalized understand ing. High risk sexual behavior 188801591 Z72.51 Pt dropped sample off yesterday and it was sent to lab for screening for gonorrhea, chlamydia, & trich. Counseled on safe sex, condom use and STD precaution s discussed. screening completed per patient's request and pt declined another screening at this time. [facility] 421068659 Z30.09 Discussed contracept ion methods. Patient not interested in any methods other than condoms at this time. Patient aware of her increased risk for unplanned . Patient advised to do 400 mcg folic acid supplement to help prevent against NTD if unplanned occurs [id number] JEAN Jauregui [address] [place] [address] 10/22/2019 11:18:28 10/23/2019 12:07:57 Vaginal odor 990984578 N89.8 Educated patient on vulvar hygiene and use condoms during sex. Pt treated empiricall y for BV. Pt educated on prevention of BV. Pt notified to call office if symptoms continue after treatment or if symptoms begin to worsen. Vaginal discharge 239304 006 N89.8 Educated patient on vulvar hygiene and use condoms during sex. Pt treated empiricall y for BV. Pt educated on prevention of BV. Pt notified to call office if symptoms continue after treatment or if symptoms begin to worsen. [id number] JEAN Jauregui [address] [place] [address] 11/29/2019 09:15:57 11/30/2019 10:14:15 Vaginal irritation 136996623 N89.8 Educated patient on vulvar hygiene and std prevention . Pt treated empiricall y for yeast infection. Pt notified to call office if symptoms do not resolve with treatment. PT to complete labs. Pt declined coming in for swab. [id number] JEAN Jauregui [address] [place] [address] 12/12/2019 09:23:14 12/13/2019 10:48:23 High risk sexual behavior 877679464 Z72.51 Pt dropped sample off yesterday and it was sent to lab for screening for gonorrhea, chlamydia, & trich. Counseled on safe sex, condom use and STD precaution s discussed. screening completed per patient's request Candidiasis of vagina 72 507119 B37.3 Pt treated empiricall y for yeast infection. Pt notified to call office if symptoms worsen or do not resolve with treatment. Pt educated on importance of glucose control. Pt verbalized understand ing. History of urinary tract infection 6830751409 107 Z87.440 Pt notified to complete urine culture 7-10 days after completing antibiotic . [id number] Shiva Raymond [address] [place] [address] 01/17/2020 08:32:00 01/18/2020 09:38:20 Type 1 diabetes mellitus 11040445 E10.9 Has insulin pump Sees Dr Cee regularly [id number] JEAN Jauregui 14 [address] [facility] [place] [address] 02/28/2020 11:07:12 02/29/2020 09:14:25 Vaginal irritation 718547928 N89.8 Educated patient on vulvar hygiene and std prevention . Pt treated empiricall y for yeast infection and bv. Pt educated on prevention of bv and yeast. Pt notified to call office if symptoms do not resolve with treatment. swab completed High risk sexual behavior 523810848 Z72.51 Nuswab collected and sent to lab. Counseled on safe sex, condom use and STD precaution s discussed screening completed per patient's request Vaginal discharge 971872 006 N89.8 [facility] Z30.09 Discussed contracept ion methods. Patient not interested in any methods other than condoms at this time. Patient aware of her increased risk for unplanned . Patient advised to do 400 mcg folic acid supplement to help prevent against NTD if unplanned occurs [id number] JEAN Jauregui [address] [place] [address] 03/24/2020 09:20:00 03/24/2020 11:20:44 Vaginal discharge 992214805 N89.8 Educated patient on vulvar hygiene and use condoms during sex. swab obtained and sent to lab. [facility] 93[facility]441 Z30.09 Discussed contracept ion methods. Patient not interested in any methods other than condoms at this time. Patient aware of her increased risk for unplanned . Patient advised to do 400 mcg folic acid supplement to help prevent against NTD if unplanned occurs [id number] JEAN Jauregui [address] [place] [address] 05/01/2020 15:25:33 05/01/2020 18:15:20 History of chlamydial infection 093711737 Z86.19 DILIA ordered for pt to complete. Pt educated on std prevention . Pt coming to lab for urine testing [id number] MD Tamica Suresh [address] [place] [address] 08/13/2020 09:05:03 08/14/2020 10:33:52 Vaginal discharge 735492025 N89.8 Educated patient on vulvar hygiene and use condoms during sex. swab obtained and sent to lab. Body mass index 30+ - obesity 451862338 Z68.31 Pt educated on risks of obesity and importance of lifestyle modificati ons. Pt working with PCP on DM and obesity. Pt notified to continue to follow up with pcp(Pt states she see Tanisha Rose). Routine gy necologic examination done 0213513453 9101 Z01.419 -Educated on the importance of SBE and awareness. -Discussed the importance of cervical cancer screenings and pap negative 06/28/2019 -Educated osteoporos is prevention including calcium rich foods, weight bearing exercise. -Discussed the importance of exercise. -Nutrition discussed and the importance of a diet rich in fruits, vegetable, whole grains, and lean proteins. -Counseled regarding prevention of STD's and screening options, condom use and prevention . -Advised avoidance of tobacco, alcohol, and drugs. [facility] surveillance [id number] Z30.09 Discussed contracept ion methods. Patient not interested in any methods other than condoms at this time. Patient aware of her increased risk for unplanned . Patient advised to do 400 mcg folic acid supplement to help prevent against NTD if unplanned occurs [id number] JEAN Jauregui [address] [place] [address] [place] [address] [address] 10/02/2020 11:34:32 10/03/2020 10:57:01 Vaginal discharge 019762809 N89.8 Educated patient on vulvar hygiene and use condoms during sex. swab obtained and sent to lab. [facility] surveillance 481966414 Z30.09 Discussed contracept ion methods. Patient not interested in any methods other than condoms at this time. Patient aware of her increased risk for unplanned . Patient advised to do 400 mcg folic acid supplement to help prevent against NTD if unplanned occurs [id number] JEAN Jauregui [address] [place] [address] [place] [address] 11/04/2020 15:05:18 11/05/2020 06:59:06 Vaginal discharge 440995670 N89.8 Educated patient on vulvar hygiene and use condoms during sex. swab obtained and sent to lab. Increased frequency of urination 733202463 R35.0 Severe Glycosuria present. Pt reports did not check blood sugar today. Pt educated on risks of this. Pt reports has appointmen t with endocrine today after this appointmen t. Pt educated on importance of follow up with endocrine and educated on warning signs and given ER precaution . [facility] 749637938 Z30.09 Discussed contracept ion methods. Patient not interested in any methods other than condoms at this time. Patient aware of her increased risk for unplanned . Patient advised to do 400 mcg folic acid supplement to help prevent against NTD if unplanned occurs [id number] JEAN Jauregui [address] [place] [address] 01/27/2021 10:24:05 01/28/2021 11:34:17 Vaginal discharge 785129497 N89.8 Pt educated on management and medication . Pt notified to call office if symptoms worsen or if symptoms continue after treatment. Pt educated on prevention of yeast infections . High risk sexual behavior 568438748 Z72.51 Nuswab collected and sent to lab. Counseled on safe sex, condom use and STD precaution s discussed screening completed per patient's request [facility] surveillance 108061517 Z30.09 Discussed contracept ion methods. Patient not interested in any methods other than condoms at this time. Patient aware of her increased risk for unplanned . Patient advised to do 400 mcg folic acid supplement to help prevent against NTD if unplanned occurs [id number] MD Tamica Suresh [address] [place] [address] 03/19/2021 08:57:07 03/20/2021 06:06:48 Pain in pelvis 05178074 R10.2 [id number] MD Tamica Suresh [address] [place] [address] 05/05/2021 09:51:34 05/10/2021 14:49:09 High risk sexual behavior 164259758 Z72.51 Vaginal discharge 147234 006 N89.8 [id number] MD Tamica Suresh [address] [place] [address] 07/01/2021 16:48:45 07/02/2021 05:57:53 Vaginal discharge 447057816 N89.8 Educated patient on vulvar hygiene and use condoms during sex. swab obtained and sent to lab.Pt treated for empiricall y for yeast infection. Pt educated on management and medication . Pt notified to call office if symptoms worsen or if symptoms continue after treatment. Pt educated on prevention of yeast infections . pt educated on importance of completing glucose control. Type 1 sagrario angelina mellitus 31765865 E10.9 Pt educated on the importance of glucose control. Pt notified to continue to follow up with PCP and endocrine. Pt requested to see dietitian referral. Referral ordered. Pt notified referral dept will contact her about referral and if she does not hear from us or dietitian within 1 week she needs to call the office. [facility] [facility] surveillance [id number] Z30.09 Discussed contracept ion methods. Patient not interested in any methods other than condoms at this time. Patient aware of her increased risk for unplanned . Patient advised to do 400 mcg folic acid supplement to help prevent against NTD if unplanned occurs [id number] JEAN Jauregui [address] [place] [address] 08/26/2021 12:22:45 08/27/2021 06:02:10 History of sexually transmitted disease [id number] Z86.19 DILIA completed. Pt educated on std prevention . Pt declined additional std screening. [id number] JEAN Jauregui [address] [place] [address] 09/14/2021 10:14:05 09/15/2021 08:48:27 Vaginal discharge [id number] N89.8 Educated patient on vulvar hygiene and use condoms during sex. swab obtained and sent to lab. High risk sexual behavior [id number] Z72.51 Nuswab collected and sent to lab. Counseled on safe sex, condom use and STD precaution s discussed screening completed per patient's request [id number] JEAN Jauregui [address] [place] [address] 02/17/2022 14:46:15 02/23/2022 11:17:39 Vaginal irritation [id number] N89.8 Vaginal discharge 205143 006 N89.8 Educated patient on vulvar hygiene and use condoms during sex. swab obtained and sent to lab. Pt educated on importance of glucose control with DM. [id number] JEAN Jauregui [address] [place] [address] 06/09/2022 11:16:03 06/10/2022 08:39:07 Vaginal discharge 499088204 N89.8 Educated patient on vulvar hygiene and use condoms during sex. swab obtained and sent to lab. Pt educated on importance of glucose control with DM. Pt educated on management and medication . Pt notified to call office if symptoms worsen or if symptoms continue after treatment. Pt educated on prevention of yeast infections . Body mass index 30+ - obesity [id number] Z68.31 Pt educated on risks of obesity and importance of lifestyle modificati ons. Pt working with PCP on DM and obesity. Pt notified to continue to follow up with pcp(Pt states she see Tanisha Rose). [id number] JEAN Jauregui [address] [place] [address] 12/08/2022 14:31:07 12/09/2022 09:32:36 Vaginal discharge 709208653 N89.8 Educated patient on vulvar hygiene and use condoms during sex. swab obtained and sent to lab. Pt educated on management and medication . Pt notified to call office if symptoms worsen or if symptoms continue after treatment. Pt educated on prevention of BV. pt requested mycoplasma and ureaplasma swab be completed. pt denies known exposure [id number] EJAN Jauregui [address] [address] [place] [address] [place] [address] 05/11/2023 11:35:05 05/12/2023 09:05:23 Routine gynecologic examination done [id number] 9101 Z01.419 -Educated on the importance of SBE and awareness. -Discussed the importance of cervical cancer screenings -Educated osteoporos is prevention including calcium rich foods, weight bearing exercise. -Discussed the importance of exercise. -Nutrition discussed and the importance of a diet rich in fruits, vegetable, whole grains, and lean proteins. -Counseled regarding prevention of STD's and screening options, condom use and prevention . -Advised avoidance of tobacco, alcohol, and drugs. Vaginal discharge 315388 006 N89.8 exam appears normal pt still opts for nuswab. Educated patient on vulvar hygiene and use condoms during sex. swab obtained and sent to lab. Family [facility] surveillance [id number] Z30.09 Discussed contracept ion methods. Patient not interested in any methods other than condoms at this time. Patient aware of her increased risk for unplanned . Patient advised to do 400 mcg folic acid supplement to help prevent against NTD if unplanned occurs Body mass index 30+ - obesity 125395736 Z68.31 Pt educated on risks of obesity and importance of lifestyle modificati ons. Pt working with PCP on DM and obesity. Pt notified to continue to follow up with pcp(Pt states she see Tanisha Rose). [id number] MD Tamica Suresh [address] [place] [address] 06/01/2023 15:02:26 06/02/2023 09:42:44 Abnormal cervical Papanicolaou smear 065980520 R87.619 Obesity 518997606 E66.9 [id number] JEAN Jauregui [address] [place] [address] 07/27/2023 14:34:27 07/28/2023 08:40:02 Vaginal discharge 568918755 N89.8 exam appears normal pt still opts for nuswab. Educated patient on vulvar hygiene and use condoms during sex. swab obtained and sent to lab. Family [facility] surveillance [id number] Z30.09 Discussed contracept ion methods. Patient not interested in any methods other than condoms at this time. Patient aware of her increased risk for unplanned . Patient advised to do 400 mcg folic acid supplement to help prevent against NTD if unplanned occurs [id number] JEAN Jauregui [address] [place] [address] 09/28/2023 11:29:28 09/30/2023 06:20:38 Vaginal discharge [id number] N89.8 Educated patient on vulvar hygiene and sti prevention . pt opts for full testing. swab obtained and sent to lab. Will treat for ray. Pt educated on management and medication . Pt notified to call office if symptoms worsen or if symptoms continue after treatment. Pt educated on prevention of yeast infections . Pt educated on importance of glucose control. pt advised to avoid intercours e until full healed. call office if symptoms worsen or if they do not resolve with treatment of ray. Pruritus of vulva 329629 00 L29.2 Pt notified to use twice a for 2 weeks and call office if symptoms worsen or if they do not resolve with treatment of ray. [id number] SUSAN Harrison Tamica [address] [place] [address] 12/15/2023 14:38:21 12/19/2023 11:55:50 At increased risk of urinary tract infection 162692607 Z91.89 1. Will send meds out for UTI 2. Pt instructed to increase fluids, decrease soda, sugary beverages and caffeinate d beverages. 3. To call office if symptoms worsen or do not improve with treatment. Vaginal irritation 21290 6004 N89.8 Nuswab done and sent to lab. Counseled on STD prevention and condom use. Counseled on yeast and BV prevention . Will follow up pending lab results. [id number] JEAN Jauregui [address] [place] [address] 02/22/2024 15:52:03 02/23/2024 09:34:16 High risk sexual behavior [id number] Z72.51 Nuswab collected and sent to lab. Counseled on safe sex, condom use and STD precaution s discussed screening completed per patient's request Vaginal discharge 313920 006 N89.8 Nuswab collected and sent to lab. Counseled on safe sex, condom use and STD precaution s discussed screening completed per patient's request [id number] JEAN Jauregui [address] [place] [address] 03/27/2024 15:48:16 04/02/2024 09:52:23 Candidiasis of vagina 19382648 B37.31 Pt educated on management and medication . Pt notified to call office if symptoms worsen or if symptoms continue after treatment. Pt educated on prevention of yeast infections . Educated patient on vulvar hygiene and use condoms during sex. swab obtained and sent to lab. [id number] JOJO Harrison [address] [place] [address] 05/30/2024 15:00:42 05/31/2024 10:45:15 Gynecologic examination 09311016 Z01.419 1. Counseled regarding prevention of STD's , condom use and prevention . 2. Counseled regarding contracept ligia options, risk factors and side effects. 3. Advised avoidance of tobacco, alcohol, and drugs . 4. Counseled regarding folic acid supplement ation, calcium needs and prevention of osteoporos is . 5. BSE reviewed and recommende d. 6. Follow up in one year or sooner if needed. Body mass index 30+ - obesity 408705002 Z68.31 Discussed diet and weight loss. Discussed making healthier food choices and increasing exercise. Discussed going to a [place] [employer]. History of abnormal cervical Papanicolaou smear 622388957 Z87.42 Health Concerns Section Related Observation LastModified by Organization Detai ls LastModified Time None Recorded Concern Status LastModified by Organization Details LastModified Time None Recorded Advance Directives Directive N: Payers Encounter Date Sequence Insurance Name Policy Number Policy Phipps Covered Member ID Phipps Member ID Guarantor Name 09/28/2023 1 LOCATED WITHIN [facility] [id number] Jarecia J Peng [id number] Jarecia J Peng 12/15/2023 1 UMR [id number] Jarecia J Peng [id number] Jarecia J Peng 02/22/2024 1 UMR [id number] Jarecia J Peng [id number] Jarecia J Peng 03/27/2024 1 UMR [id number] Jarecia J Peng [id number] Jarecia J Peng 05/30/2024 1 UMR [id number] Jarecia J Peng [id number] Jarecia J Peng Notes Date Note Type Note Provider Name and Address Organization Details Recorded Time 09/28/2023 text/html Pt is here relat ed to vaginal discharge. pt reports vaginal and vulva itching. Pt reports working with PCP to control DM type 1. Pt reports current hgb a1c 9. Pt denies any other complaints. JEAN Jauregui Attn: Accounting[address] [facility], [place], [address], [facility] 09/28/2023 13:16:39 12/15/2023 text/html 28 yo fe here fo r uti symptoms- hx dm1, MELISSA Harrison-BC Attn: Accounting[address] [facility], [place], [address], [place] [facility] 12/15/2023 15:09:32 02/22/2024 text/html Pt is here for s td screening. pt denies known exposure. Pt reports was having some vaginal discharge but that resolved. pt still wanting nuswab completed. JEAN Jauregui Attn: Accounting[address] [place], [address], [place] [facility] 02/22/2024 17:07:18 03/27/2024 text/html Pt is here relat ed to vaginal discharge. pt reports vaginal and vulva itching. Pt reports working with PCP to control DM type 1. Pt reports current hgb a1c 9. Pt denies any other complaints. JEAN Jauregui Attn: Accounting[address] [place], [address], [place] [facility] 03/27/2024 16:28:04 05/30/2024 text/html Annual GYNReport ed bypatient.History: no gynecologic complaints Menstrual cycle:Normal menses Urinary symptoms:No hematuria; No incontinence Vulva:No genital lesion Vagina:Normal vaginal discharge Breast:No breast pain; No breast lump; No nipple discharge Sexual complaints:No sexual complaints; No pain during intercourse; Normal libido Menopausal Symptoms:No menopausal symptoms; Normal vaginal lubrication Psychological symptoms:No depression; No anxiety; No PMDD Preventive measures:Encourage self breast examination; Encourage regular exercise; Encourage no tobacco use; Encourage regular mammograms starting age 40; Followed with yearly pap smears; History of abnormal pap smear/cervical dysplasia 29 yo fe here for annual wwe- hx dm1, g0- last pap lsil 05/11/23 JOJO Harrison Attn: Accounting[address] [place], [address], [place] [facility] 05/30/2024 15:35:50 OBGyn Episode No OBEpisode recorded.
--- OUTSIDE RECORDS SUMMARY | 2024-06-07 08:21 | XMS_ITS | Clinical Summary ---
Author Organization [facility] Address [address] [facility] [place] [address] Care Team Providers Care Engineering Supervisor Name Role Phone Lacy Harrison MD Primary Care Provider [phone] Source Comments [facility],non-owned Affiliates and Associated Physician Practices is amultiple site organization consisting of ambulatory clinics and hospital sitesin [place], [place], [place] and [place]. This disclosure is being madepursuant to the Care Everywhere program and may not contain all information available regarding this patient. Last updated 18.[facility] Allergies No known active allergies Medications * [...] associated with type 1 diabetes mellitus 08/04/2018 Family History Medical History Relation Name Comments Diabetes - Type 2 Maternal Grandmother High Cholesterol Mother Relation Name Status Comments Maternal Grandmother Mother Social History Tobacco Use Types Packs/Day Years [...] Comments Blood Pressure 128/94 03/11/2021 9:26 AM PLUCK SEPARATOR Pulse 101 03/09/2021 1:29 AM PLUCK SEPARATOR Temperature 37.1 C (98.7 F) 03/09/2021 1:29 AM PLUCK SEPARATOR Respiratory Rate 18 03/09/2021 1:29 AM PLUCK SEPARATOR Oxygen Saturation 98% 03/09/2021 4:31 AM PLUCK SEPARATOR Inhaled Oxygen Concentration - - Weight 69.9 kg (154 lb) 03/11/2021 9:26 AM PLUCK SEPARATOR Height 157.5 cm (5' 2 ) 03/11/2021 9:26 AM PLUCK SEPARATOR Body Mass Index 28.17 03/11/2021 9:26 AM PLUCK SEPARATOR Plan of Treatment Health Maintenance Due Date Last Done Comments PAP SMEAR 1995 HEPATITIS C SCREENING 03/03/2013 DTAP/TDAP/TD VACCINES (1 - Tdap) 2014 HEPATITIS B VACCINE (1 of 3 - 19+ 3-dose series) 2014 PNEUMOCOCCAL VACCINE (1 of 2 - PCV) 2014 DIABETES RETINOPATHY SCREENING 03/11/2021 DIABETES-FOOT EXAM WITH MONOFILAMENT 03/11/2021 DIABETES-HGB A1C 05/16/2021 02/13/2021, , 08/05/2018, Additional history exists DIABETES-SERUM CREATININE 03/09/20222020, 08/05/2018, 08/04/2018, Additional history exists COVID-19 VACCINE ( season) 2024 INFLUENZA VACCINE (#1) 2024 DEPRESSION SCREENING 05/02/2024 DIABETES - URINE PROTEIN SCREENING 05/02/2024 08/28/2019 ZOSTER VACCINE (1 of 2) 2045 HIV SCREENING Completed 08/04/2018 HIB VACCINE Aged Out No longer eligi ble based on patient's age to complete this topic HPV VACCINE Aged Out No longer eligi ble based on patient's age to complete this topic MENINGOCOCCAL (Group B) VACCINE Aged Out No longer eligible based on patient's age to complete this topic MENINGOCOCCAL VACCINE Aged Out No rae azul eligible based on patient's age to complete this topic Procedures Procedure Name Priority Date/Time Associated Diagnosis Comments COMPREHENSIVE METABOLIC PANEL STAT 03/09/2021 3:42 AM PLUCK SEPARATOR HEMOGLOBIN A1C DARRELL 08/05/2018 4:38 AM CDT HIV-1 HIV-2 ANTIGEN/ANTIBODY STAT 08/04/2018 3:20 PM CDT from Last 3 Months or Most Recently Relevant to Health Maintenance Results * (ABNORMAL) COMPREHENSIVE METABOLIC PANEL (03/09/2021 3:42 AM PLUCK SEPARATOR) Glucose 337(H) 70 - 105 mg/dL 03/09/2021 4:[address] [facility] Sodium 135(L) 136 - 145 mmol/L 03/09/2021 4:[address] [facility] Potassium 4.5 3.5 - 5.1 mmol/L 03/09/2021 4:[address] [facility] Chloride 106 98 - 107 mmol/L 03/09/2021 4:[address] [facility] CO2 20(L) 23 - 31 mmol/L 03/09/2021 4:[address] [facility] Calcium 8.6 8.4 - 10.4 mg/dL 03/09/2021 4:[address] [facility] Anion Gap 9 8 - 18 mmol/L 03/09/2021 4:[address] [facility] BUN 9 7 - 18.7 mg/dL 03/09/2021 4:[address] [facility] Creatinine 0.78 0.57 - 1.11 mg/dL 03/09/2021 4:[address] [facility] Alkaline Phosphatase 74 40 - 150 U/L 03/09/2021 4:[address] [facility] ALT 13 0 - 61 U/L 03/09/2021 4:[address] [facility] AST 15 5 - 34 U/L 03/09/2021 4:[address] [facility] Protein Total 6.9 6.4 - 8.3 gm/dL 03/09/2021 4:[address] [facility] Albumin 3.7 3.5 - 5.2 gm/dL 03/09/2021 4:[address] [facility] Bilirubin Total 0.3 0.2 - 1.2 mg/dL 03/09/2021 4:[address] [facility] eGFR by MDRD >60 >60 mL/min/1.7 3m2 03/09/2021 4:[address] [facility] eGFR by MDRD >60 >60 mL/min/1.7 3m2 03/09/2021 4:[address] [facility] Blood BLOOD SPECIMEN / Unknown Venipuncture / Unknown 03/09/2021 3:42 AM PLUCK SEPARATOR 03/09/2021 3:44 AM [facility] Harley Pearl MD LAB - CHEMISTRY O RDERABLES Performing Organization Address City/State/[facility] Co de Phone Number [facility] [address] [place] [address] * (ABNORMAL) HEMOGLOBIN A1C (08/05/2018 4:[address] [facility]) Hemoglobin A1c 10.7(H) 4.4 - 6.3 % 08/07/2018 12:23 PM [facility] Estimated Average Glucose 260 mg/dL 08/07/2018 12:23 PM [facility] Comment: HbA1c Interpretation: Treatment target values recommended by ADA and other clinical organizations should be used to evaluate metabolic control in patients. Treatment Target Values: Normal : < 5.7% Pre-diabetes: 5.7-6.4% Diabetes: Equal to or greater than 6.5% Reference: [place] [employer] Standards of Care in Diabetes -2014 In patients 70 years and older consider HbA1c target range of 7.0-7.5% Reference: Diabetes Mellitus in Older People: Position Statement on behalf of the International Association of Gerontology and Geriatrics (IAGG), the Diabetes Working Alliance Party for Older People (EDWPOP), and the International Task Force of Experts in Diabetes. Davonte Najera et al. J [place] [employer]. 2012 Test results diagnostic of diabetes should be repeated for confirmation. The Sebia Capillary 2 assay for the measurement of HbA1c is a National Glycohemoglobin Standardization Program (NGSP)certified method. Blood BLOOD SPECIMEN / Unknown Venipuncture / Unknown 08/05/2018 4:38 AM CDT 08/05/2018 4:38 AM CDT Maryse Chance MD LAB - CHEMISTRY ABEL URIBE [address] [phone] * HIV-1 HIV-2 ANTIGEN/ANTIBODY (08/04/2018 3:20 PM CDT) HIV Antigen/Antibod y 1 & 2 Non-reacti ve Non-react eladio 08/04/2018 4:06 PM CDT [facility] Comment: Neither HIV-1 p24 Antigen nor HIV-1/HIV-2 Antibodies are detected. Blood BLOOD SPECIMEN / Unknown Venipuncture / Unknown 08/04/2018 3:20 PM CDT 08/04/2018 3:28 PM CDT Rudolph Sargent MD LAB - HEMATOLOGY VJ ROSARIO Performing Organization Address City/[facility]/ZIP Co de Phone Number [address] [phone] from Last 3 Months or Most Recently Relevant to Health Maintenance Advance Directives * Full Code (Latest Code Status on File) Date Activated Date Inactivated Comments 08/05/2018 5:32 AM 08/07/2018 4:23 PM Care Teams Engineering Supervisor Relationship Specialty Start Date End Date Lacy Harrison MD [address] [place] [id number] PCP - General Family Medicine 08/04/18
--- OUTSIDE RECORDS SUMMARY | 2024-06-07 08:21 | XMS_ITS | Data Portability ---
Author Organization [facility] [place] Address [address] [place] [address] Care Team Providers Care Vacuum Caster Name Role Phone REFUGIO VILLARREAL Primary Care Provider Assessment Encounter Date Assessment Date Assessment LastModified by Organization Details LastModified Time 01/26/2023 01/26/2023 Annual gynecological exam performed. Patient will come back in a year unless there are new symptoms. [email or web address] Not available 01/26/2023 14:30:15 Plan of Treatment Reminders Order Date Submit Date Provider Last Modified By Organization Details Last Modified Time Details Appointments None recorded. Lab hbcab (hepatitis B core Ab) igm, serum 2022 023 [facility] (Lab), [address] [place], [address], 3 20:18:40 HBsAg (hepatitis B surface Ag), serum 2022 023 [facility] (Lab), [address] [place], [address], 3 20:18:38 hepatitis C virus Ab, serum 2022 023 [facility] (Lab), [address] [place], [address], 3 20:18:38 unlisted lab - HIV 1/2 antigen/ant ibody, reflex confirmatio n 2022 023 [facility] (Lab), [address], [place], [address], 3 20:18:39 RPR (rapid plasma reagin), serum 2022 023 [facility] (Lab), [address], [place], [address], 3 20:18:39 test, urine 2022 023 [facility], [address], [address], [place], [address], 3 12:36:00 urinalysis, dipstick 2022 023 [facility], [address], [address], [place], [address], 3 12:36:01 test, urine [address], [address], [address], [place], [address], 3 15:45:38 hormone panel, serum or plasma 2023 024 [facility] (Lab), [address], [place], [address], 4 03:32:14 progesteron e, serum 2023 024 [facility] (Lab), [address], [place], [address], 4 03:32:12 prolactin, serum 2023 024 [facility] (Lab), [address], [place], [address], 4 03:32:13 TSH, serum or plasma 2023 024 [facility] (Lab), [address] [facility], [place], [address], 4 03:32:14 Referral None recorded. Procedures None recorded. Surgeries None recorded. Imaging None recorded. Medication Orders fluconazole 150 mg tablet [address] [facility], [address] [place], [address], 3 15:03:55 nystatin-tr iamcinolone 100,000 unit/gram-0 .1 % topical ointment [address] [facility], [address] [place], [address], 3 15:04:12 Patient TargetsNo targets recorded. Patient InstructionsNo instructions recorded. Reason for Referral None Reported. Results Created Date Observation Date Name Description Value Unit Range Abnormal Flag Note LastModifiedBy Organization Detail LastModifiedTime 08/19/1908/18/2022 CT/GC AND TRICH OMONA S VAGIN DONAVON (RRNA ), SWAB chlamydia trachomatis, PCR Negati ve negati ve Not Available [facility] (Lab) [address], [place], [address], 08/19/2022 18:11:22 08/19/19 23 08/18/2022 CT/GC AND TRICH OMONA S VAGIN DONAVON (RRNA ), SWAB neisseria gonorrhoeae, PCR Negati ve negati ve Not Available [facility] (Lab) [address] [facility], [place], [address], 08/19/2022 18:11:22 08/19/19 23 08/18/2022 CT/GC AND TRICH OMONA S VAGIN DONAVON (RRNA ), SWAB trichomonas vaginalis ribosomal RNA (rrna) Negati ve negati ve Not Available [facility] (Lab) [address], [place], [address], 08/19/2022 18:11:22 08/19/19 23 08/18/2022 VAGIN ITIS/ VAGIN OSIS, DNA PROBE ray sp. detection, direct probe Negati ve negati ve Not Available [facility] (Lab) [address] [place], [address], 08/19/2022 18:11:22 08/19/19 23 08/18/2022 VAGIN ITIS/ VAGIN OSIS, DNA PROBE gardnerella vag. detection, direct probe Positi ve negati ve abnormal Not Available [facility] (Lab) [address] [facility], [place], [address], 08/19/2022 18:11:22 08/19/19 23 08/18/2022 VAGIN ITIS/ VAGIN OSIS, DNA PROBE trichomonas vag. detection, direct probe Negati ve negati ve Not Available [facility] (Lab) [address] [facility], [place], [address], 08/19/2022 18:11:22 08/19/19 23 08/18/2022 urina lysis , dipst ick Leukocytes neg Not Available [facility] [address], [place], [address], 08/18/2022 12:33:31 08/19/19 23 08/18/2022 urina lysis , dipst ick Nitrite neg Not Available [place] [address], [place], [address], 08/18/2022 12:33:31 08/19/19 23 08/18/2022 urina lysis , dipst ick Urobilinogen neg Not Available [facility] [address], [place], [address], 08/18/2022 12:33:31 08/19/19 23 08/18/2022 urina lysis , dipst ick Protein neg Not Available [place] [address], [place], [address], 08/18/2022 12:33:31 08/19/19 23 08/18/2022 urina lysis , dipst ick pH 5 Not Available [place] [address], [place], [address], 08/18/2022 12:33:31 08/19/19 23 08/18/2022 urina lysis , dipst ick Specific Maynard 1.005 Not Available [facility] obdulio [address], [place], [address], 08/18/2022 12:33:31 08/19/19 23 08/18/2022 urina lysis , dipst ick Ketone 2+ Not Available [place] [address], [place], [address], 08/18/2022 12:33:31 08/19/19 23 08/18/2022 urina lysis , dipst ick Bilirubin neg Not Available [facility] [address], [place], [address], 08/18/2022 12:33:31 08/19/19 23 08/18/2022 urina lysis , dipst ick Glucose 3+ Not Available [place] [address], [place], [address], 08/18/2022 12:33:31 08/19/19 23 08/18/2022 urina lysis , dipst ick Appearance clear Not Available [facility] [address], [place], [address], 08/18/2022 12:33:31 08/19/19 23 08/18/2022 urina lysis , dipst ick Color yellow Not Available [place] [address], [place], [address], 08/18/2022 12:33:31 08/19/19 23 08/18/2022 pregn rich test, urine HCG negati ve Not Available [place] [address], [place], [address], 08/18/2022 12:33:15 01/27/20 23 01/26/2023 IMAGE GUIDE D PAP, REFLE X HPV IF ASCUS ONLY image guided Pap, reflex HPV ASCUS only SEE RESULT S BELOW abnormal CASE REPOR T: Cytol ogy Gynec ologi giacomo Repor t Case: [id number] Autho tonio gómez Provi chet: Maryuri bookerChris luz Colle cted: 01/26 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 Backg round of low-g rade squam ous intra epith elial lesio n (LSIL ). Elect claudia farooq d by Patrick Pham rd, MD on 2022 at 12:14 PM ----- ----- ----- ----- ----- ----- ----- ----- ----- ----- ----- ----- ----- ----- ----- ----- ----- ---- COMME NT: Slide scree andre manua lly due to rejec tion by the Thinp rep Imagi ng Systmyrna garcia CLINI GIACOMO INFOR MATIO N: Menst rual Statu s: LMP (if appli cable ): Clini giacomo Histo ry/Pr eviou s Pap: Type of Neopl cristobal (if appli cable ): Signi fican t Clini giacomo Findi ngs: Other Histo ry: Hormo mayte (if appli cable ): KYLIE MOTT FOLLO W-UP: Follo w up as warra nted, based on curre nt guide lines and indiv idual patie nt consi derat ions. Not Available [facility] (Lab) [address], [place], [address], 01/31/2023 13:17:51 02/17/20 23 02/16/2023 pregn rich test, urine HCG negati ve Not Available [place] [address], [place], [address], 02/16/2023 15:45:32 Result Notes None recorded. Problems Name Problem SNOMED Code Status Onset Date Resolution Date Notes Provider Name and Address Organization Details Recorded Time Infectio n screenin g Completed 201501/18/2022 Encounter for screening for oth infec/par astc diseases; Recorded Elsewhere : No Locati on: [facility] So urce: EHR Chron ic: N Practic e ID: 0001 Bill able Time: 10:00:00 AM Vicki [facility] 2 16:24:03 Educatio n Completed 201701/18/2022 Encounter for other general counselin g on contracep tion;Keny rded Elsewhere : No Locati on: [facility] So urce: EHR Chron ic: N Practic e ID: 0001 Bill able Time: 01:45:00 PM [facility] 2 16:24:03 Acute vaginiti s [id number] Completed 201701/18/2022 Acute vaginitis ;Recorded Elsewhere : No Locati on: [facility] So urce: EHR Chron ic: N Practic e ID: 0001 Bill able Time: 01:45:00 PM Vicki Mirza [facility] 2 16:24:[address] Concept Completed 201501/18/2022 Encntr for general adult medical exam w/o abnormal findings; Recorded Elsewhere : No Locati on: [facility] So urce: EHR Chron ic: N Practic e ID: 0001 Bill able Time: 10:00:00 AM Vicki Mirza [facility] 2 16:24:03 Syphilis test finding [id number] Completed 201501/18/2022 Encntr screen for infection s w sexl mode of transmiss ;Recorded Elsewhere : No Locati on: [facility] So urce: EHR Chron ic: N Practic e ID: 0001 Bill able Time: 10:00:00 AM Vicki Mirza [facility] 2 16:24:03 Body mass [facility] 25-29 [facility] [id number] Completed 201701/18/2022 Body mass index (BMI) 29.0-29.9 , adult;Rec orded Elsewhere : No Locati on: [facility] So urce: EHR Chron ic: N Practic e ID: 0001 Bill able Time: 11:00:00 AM Vicki Mirza [facility] 2 16:24:03 Screenin g for malignan t neoplasm of cervix Completed 201701/18/2022 Screening for malignant neoplasms of the cervix;Re corded Elsewhere : No Locati on: [facility] So urce: EHR Chron ic: N Practic e ID: 0001 Bill able Time: 11:00:00 AM Vicki Mirza [facility] 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 16:24:03 Problem Notes None recorded. Procedures Surgical History Date Name Laterality Status Provider Name and Address Organization Details Recorded Time 02/17/20 23 Colposcopy completed Kalyn Son [facility] [address], [place], [address], [facility] 02/16/2023 16:25:01 01/27/20 23 Date of Last Pap Smear completed Myra Marx [facility] 02/16/2023 15:43:38 01/20/20 22 Colposcopy completed Kalyn Son [facility] [address], [place], [address], [facility] 01/19/2022 12:36:12 01/20/20 22 Colposcopy completed Myra Marx [facility] 01/26/2023 14:31:16 01/20/20 22 colposcopy completed Myra [facility] 01/26/2023 14:32:35 05/02/18 96 Tonsillectomy completed Negin Mantilla [facility] 04/08/2022 10:02:57 Imaging Results None recorded. Procedure Notes None recorded. Medical Equipment None Reported. Allergies No known drug allergies Medications Name Sig Start Date Stop Date Status Note LastModified by Organization Details LastModified Time fluconazo le 150 mg tablet TAKE 1 TABLET BY MOUTH EVERY 72 HOURS active Not Available Not Available No t Available fluconazo le 200 mg tablet TAKE 1 TABLET BY MOUTH EVERY OTHER DAY 01/26 completed Not Available Not Available Not Available phenazopy ridine 200 mg tablet 12/28 completed Not Available Not Available Not Available metronida zole 0.75 % (37.5 mg/5 gram) vaginal gel INSERT 1 APPLICAT ORFUL VAGINALL Y EVERY DAY AT BEDTIME FOR 5 DAYS 12/22 completed Not Available Not Available Not Available terconazo le 0.8 % vaginal cream APPLY 1 APPLICAT ORFUL VAGINALL Y ONCE DAILY AT BEDTIME FOR 3 DAYS 12/22 completed Not Available Not Available Not Available miconazol e nitrate 2 % vaginal cream INSERT ONE APPLICAT ORFUL VAGINALL Y AT BEDTIME FOR 7 DAYS 12/28 completed Not Available Not Available Not Available Lantus U-100 Insulin 100 unit/mL subcutane ous solution INJECT 32 UNITS SUBCUTAN EOUSLY ONCE DAILY active Not Available Not Available No t Available penicilli n V potassium 500 mg tablet TAKE 1 TABLET BY MOUTH EVERY 6 HOURS active Not Available Not Available No t Available metronida zole 500 mg tablet TAKE 1 TABLET BY MOUTH TWICE DAILY FOR 7 DAYS 08/30 completed Not Available Not Available Not Available amoxicill in 500 mg tablet TAKE 1 TABLET BY MOUTH EVERY 8 HOURS active Not Available Not Available No t Available nystatin- triamcino lone 100,000 unit/gram -0.1 % topical ointment APPLY OINTMENT TOPICALL Y TO AFFECTED AREA TWICE DAILY FOR 5 DAYS 12/22 completed Not Available Not Available Not Available Humalog U-100 Insulin 100 unit/mL subcutane ous solution INJECT 65 UNITS SUBCUTAN EOUSLY ONCE DAILY BY INSULIN PUMP active Not Available Not Available No t Available cephalexi n 500 mg capsule TAKE 1 CAPSULE BY MOUTH EVERY 12 HOURS FOR 5 DAYS 01/18 completed Not Available Not Available Not Available doxycycli ne hyclate 100 mg tablet TAKE 1 TABLET BY MOUTH TWICE DAILY FOR 7 DAYS 12/28 completed Not Available Not Available Not Available amoxicill in 875 mg-potass ium clavulana te 125 mg tablet TAKE 1 TABLET BY MOUTH EVERY 12 HOURS UNTIL ALL TAKEN active Not Available Not Available No t Available Humalog U-100 Insulin 100 unit/mL subcutane ous cartridge inject by subcutan eous route per prescrib er's instruct ions. Insulin dosing requires dougu babita turner. 11/17 completed Prescrib ed Elsewher e: Yes Loca tion: [facility] odify By: armando rosenbaum DateTime : 11/17/19 16 10:00:00 AM Not Available Not Available Not Available nitrofura ntoin monohydra te/macroc rystals 100 mg capsule 11/17 completed Not Available Not Available Not Available emtricita bine 200 mg-tenofo vir disoproxi l fumarate 300 mg tablet TAKE 1 Tablet BY MOUTH EVERY DAY 12/22 completed Not Available Not Available Not Available chlorhexi dine gluconate 0.12 % mouthwash RINSE 15 ML IN MOUTH TWICE DAILY 11/17 completed Not Available Not Available Not Available Lantus Solostar U-100 Insulin 100 unit/mL (3 mL) subcutane ous pen active Not Available Not Available Not Available Humalog KwikPen (U-100) Insulin 100 unit/mL subcutane ous INJECT 8 UNITS SUBCUTAN EOUSLY THREE TIMES DAILY WITH FOOD active Not Available Not Available No t Available Truvada 100 mg-150 mg tablet Take 1 tablet by oral route. 12/22 completed Not Available Not Available Not Available Afrezza 4 unit (60)/8 unit (60)/12 unit (60) cartridge with inhaler active Not Available Not Available Not Available TRUEplus Pen Needle 32 gauge x 5/32 active Not Available Not Available Not Available Baqsimi 3 mg/actuat ion nasal spray ADMINIST ER 1 SPRAY INTO 1 NOSTRIL NEEDED FOR SEVERE HYPOGLYC ROBERTO SKELTON CE OF ANOTHER 02/16 completed Not Available Not Available Not Available ID NOW COVID-19 Test Kit TEST DIRECTED TODAY 11/17 completed Not Available Not Available Not Available FreeStyle Ramses 2 Sensor kit USE 1 SENSOR TO CHECK BLOOD GLUCOSE EVERY 14 DAYS active Not Available Not Available No t Available Vitals Date Recorded Body height Systolic blood pressure Diastolic blood pressure Provider Name and Address Organization Details Last Updated DateTime 08/18/2022 157.48 cm 120 mm[Hg] 76 mm[Hg] Adelaida Patel [facility] 08/18/2022 12:22:35 Date Recorded Body height Body mass index (BMI) Body weight Systolic blood pressure Diastolic blood pressure Provider Name and Address Organization Details Last Updated DateTime 12/22/2022 157.48 cm 33.2 kg/m2 26329.66 g 131 mm[Hg] 85 mm[Hg] Vicki Verduzco [facility] 3 15:03:46 Date Recorded Body height Body mass index (BMI) Body weight Systolic blood pressure Diastolic blood pressure Provider Name and Address Organization Details Last Updated DateTime 01/26/2023 157.48 cm 32.6 kg/m2 97004.44 g 127 mm[Hg] 83 mm[Hg] Myra [facility] 3 14:30:34 Date Recorded Body height Body mass index (BMI) Body weight Systolic blood pressure Diastolic blood pressure Provider Name and Address Organization Details Last Updated DateTime 02/16/2023 157.48 cm 32.4 kg/m2 14147.85 g 143 mm[Hg] 85 mm[Hg] Myra [facility] 3 15:43:13 Date Recorded Systolic blood pressure Diastolic blood pressure Provider Name and Address Organization Details Last Updated DateTime 02/16/2023 122 mm[Hg] 80 mm[Hg] Kalyn Son, [facility] [address], [place], [address], [facility] 02/16/2023 16:23:38 Date Recorded Body height Body mass index (BMI) Body weight Systolic blood pressure Diastolic blood pressure Provider Name and Address Organization Details Last Updated DateTime 08/31/2023 157.48 cm 32.7 kg/m2 72143.03 g 112 mm[Hg] 77 mm[Hg] Klaudia Mathew [facility] 4 14:51:29 Social History Question Answer Notes LastModified by Organizat ion Details LastModified Time Tobacco Smoking Status Never Smoker Adelaida monae, [facility] 11/17/2021 16:50:27 What Is Your Level Of Alcohol Consumption? Occasional Information not available 11/17/2021 Are You Blind Or Do You Have Difficulty Seeing? No Information n ot available 11/17/2021 What Is Your Level Of Caffeine Consumption? Occasional [email or web address] Information not available 04/08/2022 In The 14 Days Before Symptom Onset, Have You Had Close Contact With A Laboratory-confirm ed COVID-19 While That Case Was Ill? No [email or web address] Information n ot available 04/08/2022 In The 14 Days Before Symptom Onset, Have You Had Close Contact With A Person Who Is Under Investigation For COVID-19 While That Person Was Ill? No [email or web address] Information not available 04/08/2022 Have You Been To An Area Known To Be High Risk For COVID-19? No [email or web address] Information not available 04/08/2022 Are You Deaf Or Do You Have Serious Difficulty Hearing? No Information not available 11/17/2021 What Type Of Diet Are You Following? REGULAR Information n ot available 11/17/2021 Have You Ever Been Counseled For Unhealthy Alcohol Use? No [email or web address] Information not available 04/08/2022 Do You Use Your Seat Belt Or Car Seat Routinely? Yes [email or web address] Information not available 04/08/2022 Do You Have Smoke And Carbon Monoxide Detectors In Your Home? Yes [email or web address] Information not available 04/08/2022 Do You Feel Stressed (tense, Restless, Nervous, Or Anxious, Or Unable To Sleep At Night)? [id number] [email or web address] Information not available 04/08/2022 Do You Use Any Illicit Or Recreational Drugs? No [email or web address] Information not available 04/08/2022 Do You Use Sunscreen Routinely? Yes [email or web address] Information not available 04/08/2022 Sex: Unknown Functional Status Question Answer Note LastModified by Organizat ion Details LastModified Time Do you have difficulty walking or climbing stairs? No Information not available 11/17/2021 Are you able to walk? [email or web address] Information not available 11/17/2021 Are you able to care for yourself? Yes Information not available 11/17/2021 Do you have difficulty dressing or bathing? No Information not available 11/17/2021 What is your exercise level? None Information not available 11/17/2021 Mental Status None recorded. Family History Relationship Description Onset Age of this Age Resolved Age Notes LastModified by Organization Details LastModified Time Maternal Grandmother Diabetes mellitus [email or web address] Not available 10/30 16:48:55 Maternal Grandmother Zain guillory [email or web address] Not available 10/30 16:49:47 Maternal Uncle Diabetes mellitus [email or web address] Not available 10/30 16:49:07 Mother Hypercholesbaljinder goldsteinia [email or web address] Not available 10/30 16:49:40 Maternal Aunt Hyperchhank goldsteinia [email or web address] Not available 10/30 16:49:56 Medical History Condition Response Allergies (Food, seasonal, environmental ) N Other N Breast Cancer N Drug/Latex Allergies/Reactions N Blood Transfusion N Dermatologic Disorders N Lung Disease N Defects or Inherited Disease N Breast Problem N Gestational Diabetes N Hematologic disorders N Anesthesia Complications N History of STI Y Deep Vein Thrombosis N Polycystic ovary syndrome N Anxiety Disorder N Autoimmune disease N Arthritis N Infertility N Polyps N Acid Reflux (GERD) N History of abnormal pap Y Cancer N Stroke N Varicosities N Neurologic/Epilepsy N Endometriosis N High Cholesterol N Headaches N Fibromyalgia N Kidney Disease N Heart Problems N Kidney or Bladder Problems N Thyroid Problems N GI Problems N Eating Disorder N Anemia N Art (IVF or FET) N Psychiatric Illness N Ovarian Cancer N Diabetes Y Pulmonary (TB, Asthma) N Hepatitis/Liver Disease N No Past Medical History N Eczema N Urinary Tract Infection N Abuse/Domestic Violence N Asthma N Trauma/Violence N Depression/ depression N Heart Disease N Pre-Eclampsia N Hypertension N Osteoporosis N Thrombophilias N Gynecological History Statement/Question Response Abnormal Pap Y Flow Moderate Date of LMP 08/13/2023 Was last menstrual period normal Y STIs/STDs Y HPV Vaccine Y Colposcopy 01/19/2022 Duration of Flow (days) 6 Current Control Method Condoms Are cycles usually normal Y Sexually Active? Y Menses Monthly Y Age of first menstrual cycle 14 Date of Last Pap Smear 01/26/2023 Sexual Problems? N LMP Definite Obstetrics History GPAL:G 0 P 0 0 0 0 Type Value Living 0 Total 0 Past Encounters Encounter ID Performer Location Encounter Start Date Encounter Closed Date Diagnosis/Indication Diagnosis SNOMED-CT Code Diagnosis ICD10 Code Diagnosis Note [id number] VANIA Balderrama [place] [address] [address] 11/17/2021 16:37:24 11/18/2021 17:27:38 Vaginitis 39991119 N76.0 Suspect yeast on examVagini tis panel sentSTI endocervic al testing sentBlood STI panel orderedWil l treat for yeast, rx terconazol e vaginal cream sentWe discussed need for blood sugar regulation to prevent recurrent yeast infectionV ulvar care guidelines discussedC ondom use encouraged Will await STI testing and treat if neededTo schedule WWE for pap smear as this was a problem visit Time spent in visit is a total of 20 mins with at least 50% of visit consisting of counseling and review of plan of care. Venereal d isease screening 272095768 Z11.3 Sexually t ransmitted infectious disease 7782606 A64 [id number] Ciera Banda MICHAEL [place] [address],[place] [address] 12/01/2021 13:59:42 12/07/2021 12:07:13 Left without being seen [id number] 9102 Z53.21 [id number] Ciera Banda MICHAEL [place] [address],[place] [address] 12/28/2021 12:29:04 12/28/2021 14:57:56 Mass of left breast [id number] 5229665 N63.20 Gynecologi c examination 60765729 Z01.419 Take Calcium with Vitamin D 1200mg daily if not receiving in daily diet. It is strongly advised to have an annual flu shot and up can obtain at most pharmacies . If you have not had a TDap shot in the last 10 years you should obtain one as well. Discussed with patient & provided with informatio n regarding Gardisil vaccine to prevent the 4 strains for HPV that cause cervical cancer if under age 26. Encourage safe sexual practices, to use condoms and limit partners if not already in a monogamous relationsh ip. Do monthly self breast exams. Have mammogram yearly or every other year depending on family history. BRCA testing is now available for patients with strong genetic history of female cancer. If interested contact the office. Engage in daily exercise of low impact aerobic exercise 45-60 minutes 4-5 times weekly. Avoid tobacco and illicit drugs as well as using moderation with alcohol intake less than 1-2 8 oz beverages daily. This lifestyle behavior pattern will lead to less health conditions and longer life span. If BMI greater than 25 weight watchers or dietary consult advised. Patient received above instructio ns, and questions have been answered. If you have any questions please call or respond to this email. Patient was made aware of the patient portal and may obtain a paper copy of today's plan if desired. WWEMedical hx : DiabetesTO C done today for (+) chlamydia on 11/17/2021. Patient completed treatment and partner completed treatment. Encouraged condom use to help protect against STI's.BC - condoms, happy with this method, declines BC at this time.Last pap around 2018Pap done todayFolli culitis noted on mons pubis, rx sent to patient pharmacy. To avoid shaving/wa anika for now. Apply OTC antibiotic ointment to this area BID until resolved.L ump in left breast palpated, at about 12 o'clock, 1cm in size. Breast u/s ordered.Ge netic testing, discussedU TD with [facility] in 1 year for WWE or sooner if needed Time spent in visit is a total of 35 mins with at least 50% of visit consisting of counseling and review of plan of care. Venereal d isease screening 277382209 Z11.3 Folliculitis [id number] L7 3.9 History of chlamydial infection [id number] Z86.19 [id number] VANIA Balderrama [facility] [address],[place] [address] 01/07/2022 14:36:51 01/07/2022 15:32:52 Venereal disease screening [id number] Z11.3 Vaginitis [id number] N76.0 Suspect yeast/BV on examVagini tis panel sentSTI endocervic al testing sentVulvar care guidelines discussedE ncouraged patient to check in with PCP about diabetes - as patient states she has been having difficulty keeping BS controlled RTC for colposcopy Time spent in visit is a total of 20 mins with at least 50% of visit consisting of counseling and review of plan of care. [id number] Vicki Mirza [facility] [address] [address] 01/19/2022 11:40:43 01/19/2022 12:39:25 Low grade squamous intraepithelial lesion on cervical Papanicolaou smear [id number] 9105 R87.612 See procedure notes.Post -procedure instructio ns reviewed with understand ing verbalized .Will contact with results & next steps in plan of care. Counseled on Pap/HPV guidelines /Testing/R esults with understand ing verbalized .All questions answered to patient satisfacti on. Booklet & additional resources regarding pap smear/HPV/ Pap results given. https://ww w.cancer.g ov/types/c ervical/un derstandin g-abnormal -hpv-and-p ap-test-re sults/unde rstanding- cervical-c hanges.pdf [id number] Alissa Madison [facility] [address] [address] 04/08/2022 09:51:12 04/08/2022 10:38:30 Vaginitis [id number] N76.0 Discussed use of mild soap like dove or ivory, cotton underwear w/out dye, hypoallerg enic detergent, wipe from front to back, avoid tub baths, keep perineum clean and dry, d/c use of baby wipes. Encouraged daily intake of yogurt or womens health probiotic. Internal and external affirm collected. Will treat with flagyl and diflucan. Pt also agreed to STD screen. [id number] VANIA Balderrama [facility] [address] [address] 08/18/2022 12:14:37 08/18/2022 12:45:24 Urinary symptoms [id number] R39.9 Venereal d isease screening [id number] Z11.3 UPT (-)UA w/ ketones and glucosevag initis panel sentSTI endocervic al testing sentblood STI panel orderedvul mariaz care guidelines discusseds uspect yeastencou raged BS regulation in the prevention of recurrent yeast infections condom use encouraged RTC if symptoms persist Time spent in visit is a total of 15 mins with at least 50% of visit consisting of counseling and review of plan of care. 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 [id number] Kalyn Son [facility] [address],[facility] [place] [address] 01/26/2023 14:19:06 01/26/2023 14:49:56 Gynecologic examination 96019476 Z01.419 Take Calcium with Vitamin D 1200mg daily if not receiving in daily diet. It is strongly advised to have an annual flu shot and up can obtain at most pharmacies . If you have not had a TDap shot in the last 10 years you should obtain one as well. Discussed with patient & provided with informatio n regarding Gardisil vaccine to prevent the 4 strains for HPV that cause cervical cancer if under age 26. Encourage safe sexual practices, to use condoms and limit partners if not already in a monogamous relationsh ip. Do monthly self breast exams. Have mammogram yearly or every other year depending on family history. BRCA testing is now available for patients with strong genetic history of female cancer. If interested contact the office. Engage in daily exercise of low impact aerobic exercise 45-60 minutes 4-5 times weekly. Avoid tobacco and illicit drugs as well as using moderation with alcohol intake less than 1-2 8 oz beverages daily. This lifestyle behavior pattern will lead to less health conditions and longer life span. If BMI greater than 25 weight watchers or dietary consult advised. Patient received above instructio ns, and questions have been answered. If you have any questions please call or respond to this email. Patient was made aware of the patient portal and may obtain a paper copy of today's plan if desired. Pap sentSTD Screen previously updated lastmonthG enetic Screen discussedC olon Screen naDexa Screen naRoutine Labs PCP [id number] [facility] [address] [address] 02/16/2023 15:19:16 02/16/2023 16:27:48 Human papillomavirus deoxyribonucleic acid detected, high risk on cervical specimen [id number] R87.810 R87.611 See procedure notes.Post -procedure instructio ns reviewed with understand ing verbalized .Will contact with results & next steps in plan of care. Counseled on Pap/HPV guidelines /Testing/R esults with understand ing verbalized .All questions answered to patient satisfacti on. Booklet & additional resources regarding pap smear/HPV/ Pap results given. https://ww w.cancer.g ov/types/c ervical/un derstandin g-abnormal -hpv-and-p ap-test-re sults/unde rstanding- cervical-c hanges.pdf Screening procedure 2012 5006 Z13.9 [id number] Pillo Hernandez MD [facility] [address],[place] [address] 08/31/2023 14:07:25 08/31/2023 15:53:38 Abnormal uterine bleeding [id number] 9100 N93.9 this patient is a 20-year-ol d female with infertilit y. She has been trying to get for over a year. She is regular menstrual cycle. She has premenstru al symptoms. She has a history of gonorrhea and chlamydia. She has never had any pelvic inflammato ry disease. She has never had pelvic pain or endometrio sis. We discussed treatment for more than 40 minutes. More than 50% of our meeting was counseling . We talked about an ovulation. We talked about irregular bleeding. We talked about the menstrual cycle. Talked about infertilit y Treatments . Talked about hysterosal pingogram. Talked about semen analysis. Talked about laboratory evaluation . Female infertility [id number] N97.9 Health Concerns Section Related Observation LastModified by Organization Detai ls LastModified Time None Recorded Concern Status LastModified by Organization Details LastModified Time None Recorded Advance Directives Directive None Recorded Payers Encounter Date Sequence Insurance Name Policy Number Policy Phipps Covered Member ID Phipps Member ID Guarantor Name 08/18/2022 1 [employer] [id number] Mariaa Herr Peng [id number] Kanecia Carmenza Peng 12/22/2022 1 UMR [id number] Mariaa Herr Peng [id number] Mariaa Herr Peng 01/26/2023 1 UMR [id number] Mariaa Herr Peng [id number] Jarecia J Peng 02/16/2023 1 UMR [id number] Mariaa Herr Peng [id number] Jarchanelle Herr Peng 08/31/2023 1 UMR [id number] Mariaa Hrer Peng [id number] Mariaa Herr Peng Notes Date Note Type Note Provider Name and Address Organization Details Recorded Time 08/18/2022 text/html 27yopresents for vulvar itching, irritation, and burningsymptoms started about 1 week agoSA with steady partner, no condom usewould like STI testingno d/cfrequent urinationDenies any pelvic pain, odors, n/v/f, or flu-like symptomsBS have not been controlled per patient VANIA Balderrama [address], [place], [address], [facility] 08/18/2022 12:45:01 12/22/2022 text/html Vaginal/Vulvar ProblemReported bypatient.Notes:Here today for vaginal irritation/odor.Part ner tested +mycoplasmaWants testing Neg pain of abd/pelvis/flankNeg urinary sx'sNeg GI sx'sNeg N/V/F/C/DNeg Vag d/c, itching VANIA Robert- [address], [place], [address], [facility] 12/22/2022 15:49:33 01/26/2023 text/html Annual GYNReport ed bypatient.History:no gynecologic complaints Menstrual cycle:Normal menses Urinary symptoms:No hematuria; No incontinence Vulva:No genital lesion Vagina:Normal vaginal discharge Breast:No breast pain; No breast lump; No nipple discharge Current Contraception:Satisf ied with current contraception; Condoms Sexual complaints:No sexual complaints; No pain during intercourse; Normal libido Menopausal Symptoms:No menopausal symptoms; Normal vaginal lubrication Psychological symptoms:No depression; No anxiety; No PMDD Preventive measures:Encourage self breast examination; Encourage regular exercise; Encourage no tobacco use; Encourage regular mammograms starting age 40 Kalyn Son [facility] [address], [place], [address], [facility] 01/26/2023 14:45:48 02/16/2023 text/html Here today for colposcopy for abn pap/hpv. Kalyn Son [facility] [address], [place], [address], [facility] 02/16/2023 16:27:17 08/31/2023 text/html this patient is a 20-year-old female with infertility. She has been trying to get for over a year. She is regular menstrual cycle. She has premenstrual symptoms. She has a history of gonorrhea and chlamydia. She has never had any pelvic inflammatory disease. She has never had pelvic pain or endometriosis. We discussed treatment for more than 40 minutes. More than 50% of our meeting was counseling. We talked about an ovulation. We talked about irregular bleeding. We talked about the menstrual cycle. Talked about infertility Treatments. Talked about hysterosalpingogram. Talked about semen analysis. Talked about laboratory evaluation. Pillo Hernandez MD [address], [place], [address], [facility] 08/31/2023 15:47:22 OBGyn Episode No OBEpisode recorded.
[2024-06-07] MEDS: SODIUM CHLORIDE 0.9% IV 1,000 ML 999 ML IV CONT ×2 (08:24→08:26)
[2024-06-07 09:50] LABS: Glucose Point of Care 241 mg/dl (65-105)
--- NOTE | 2024-06-07 10:01 | ED_ITS ---
HPI - General Adult General Chief complaint: Recheck/Abnormal Lab/Rx Stated complaint: AMS, DIABETIC EMERGENCY Time Seen by Provider: 06/07/24 08:08 History of Present Illness HPI narrative: Patient 29-year-old female who presents emergency department with chief complaint of high blood sugar and diarrhea. Patient reports that she has been having diarrhea and has had multiple bouts so that she had a patient reports he is an insulin-dependent diabetic and reports that her blood sugars were 491 the patient did report that she took 3 units of insulin. The patient reports that she feels somewhat weak and lethargic. Related Data Home Medications ?Medication ?Instructions ?Recorded ?Confirmed ?Last Taken ?Type insulin lispro 100 unit/mL 1 sliding scale dose subcut 12/30/19 01/14/21 Unknown History subcutaneous cartridge (Humalog USEASDIRECTD U-100 Insulin) insulin lispro 100 unit/mL See Rx Instructions .Route .COMPLEX 11/15/20 01/14/21 Unknown History subcutaneous cartridge (Humalog U-100 Insulin) Allergies Allergy/AdvReac Type Severity Reaction Status Date / Time No Known Allergies Allergy Verified 01/23/21 15:16 Review of Systems 2 Review of Systems: A 10 system review of systems was completed on the patient and is negative except for what is stated in the HPI. Nursing and ancillary documentation was reviewed. [facility] Past Medical History Medical History Diabetes mellitus type 1 diabetes insulin-dependent. Diagnosed at the age of 13 Surgical History Surgical History History of tonsillectomy Family History Family History Grandparent Diabetes mellitus Other Diabetes mellitus Other Cerebrovascular accident Mother Hypertension Sibling Eczema Father Gunshot injury from gunshot injury Social History Social History Social History: the patient has no children and she works at [employer] in [place]. She does not have a durable power senior attorney for healthcare. but stated that she would like to choose her mother as her durable power senior attorney. She does not smoke cigarettes or use any illicit drugs. She occasionally uses alcohol. She desires to be a full code She does occasionally smoke marijuana. Smoking status: Never smoker Alcohol intake: never Drinks per week: 3 Alcohol use details: Social Substance use: unknown Substance use type: marijuana Gender identity (if verbalized by the patient): Female Spiritual care concerns: No Exam 2 Narrative: GENERAL: Well-appearing, well-nourished, and in no acute distress. HEAD: Normocephalic, atraumatic. EYES: PERRLA and EOMI. ENT: Nares clear, no rhinorrhea or epistaxis. Mucous membranes moist. NECK: Supple. CHEST: Clear to auscultation. No respiratory distress. HEART: Regular rate and rhythm. No murmur heard. Normal peripheral pulses. ABDOMEN: Soft, nontender, nondistended, normal active bowel sounds. EXTREMITIES: Normal range of motion. No edema. SKIN: Warm, dry, no rash. NEURO: No focal deficits. Alert and oriented x3. PSYCH: Normal mood and affect. Course Vital Signs Vital signs: Vital Signs Pulse Rate 70 06/07/24 03:42 Respiratory Rate 12 06/07/24 03:42 Blood Pressure 139/90 06/07/24 03:42 Pulse Oximetry 100 06/07/24 03:42 Oxygen Delivery Room Air 06/07/24 03:42 Pulse Rate 70 06/07/24 03:42 Respiratory Rate 12 06/07/24 03:42 Blood Pressure 139/90 06/07/24 03:42 Pulse Oximetry 100 06/07/24 03:42 Oxygen Delivery Room Air 06/07/24 03:42 Medical Decision Making [facility] Narrative Medical decision making narrative: Differential diagnosis includes DKA, dehydration, viral illness Laboratory studies were obtained on the patient which showed a normal CBC electrolytes showed a glucose of 334 her beta hydroxybutyrate was 0.12 the patient had no anion gap COVID flu and RSV were negative urinalysis showed no evidence UTI at Patient received 2 L of normal saline boluses blood sugar has come down into the to 240s. Patient be discharged home to follow-up with her primary care provider Vital Signs Vital Signs: Vital Signs Pulse Rate 70 06/07/24 03:42 Respiratory Rate 12 06/07/24 03:42 Blood Pressure 139/90 06/07/24 03:42 Pulse Oximetry 100 06/07/24 03:42 Oxygen Delivery Room Air 06/07/24 03:42 Pulse Rate 70 06/07/24 03:42 Respiratory Rate 12 06/07/24 03:42 Blood Pressure 139/90 06/07/24 03:42 Pulse Oximetry 100 06/07/24 03:42 Oxygen Delivery Room Air 06/07/24 03:42 Lab Data 06/07/24 04:08 06/07/24 04:08 Labs: Lab Results 06/07/24 06/07/24 06/07/24 Range/Units 03:47 04:08 05:24 WBC 4.6 (4.5-10.0) K/mm3 RBC 3.82 L (4.2-5.4) M/mm3 Hgb 12.2 (12.0-15.0) g/dL Hct 37.0 (37.0-47.0) % MCV 96.9 (80-100) fl MCH 31.9 (26-34) pg MCHC 33.0 (32-36) g/dl RDW 12.3 (11.5-14.5) % Plt Count 226 (150-375) k/mm3 MPV 10.5 H (7.4-10.4) fl Immature Gran % (Auto) 0.4 (0-0.5) % Neut % (Auto) 48.4 (45.5-73.1) % Lymph % (Auto) 42.6 (18.3-44.2) % [place] % (Auto) 6.6 (2.6-8.5) % Eos % (Auto) 1.3 (0-4.4) % Baso % (Auto) 0.7 (0.2-1.2) % Lymph # (Auto) 1.95 (0.9-3.2) K/mm3 [place] # (Auto) 0.3 (0.1-0.6) K/mm3 Eos # (Auto) 0.1 (0-0.3) K/mm3 Baso # (Auto) 0.0 (0.0-0.1) K/mm3 Abs Immat Gran (auto) 0.02 (0.00-0.031) K/mm3 Absolute Neuts (auto) 2.2 (1.3-6.7) K/mm3 Absolute Nucleated RBC 0.000 (0.0-0.012) K/mm3 Nucleated RBC % 0.0 (0.0-0.2) % Sodium 136 L (137-145) mmol/L Potassium 3.9 (3.4-5.0) mmol/L Chloride 101 (98-107) mmol/L Carbon Dioxide 26 (22-30) mmol/L Anion Gap 9 (4-12) mmol/L BUN 16 (7-17) mg/dL Creatinine 0.71 (0.7-1.0) mg/dL Estim Creat Clear Calc 100 ml/min Estimated GFR > 60 (59 - ) Glucose 334 H (65-110) mg/dL POC Capillary Glucose 353 H 243 H (65-105) mg/dl Calcium 9.4 (8.4-10.2) mg/dL Phosphorus 3.0 (2.5-4.5) mg/dL Magnesium 1.9 (1.6-2.3) mg/dL Total Bilirubin 0.5 (0.2-1.3) mg/dL AST 20 (14-36) U/L ALT 17 (6-35) U/L Alkaline Phosphatase 79 (38-126) U/L Total Protein 7.0 (6.3-8.2) g/dL Albumin 3.9 (3.5-5.1) g/dL Beta-Hydroxybutyrate/Acetoacetate 0.12 (0.02-0.27) mmol/L Urine Color (Yellow) Urine Appearance (Clear) Urine pH (5.0-9.0) Ur Specific [place] (1.001-1.035) Urine Protein (Negative) mg/dL Urine Glucose (UA) (Negative) mg/dL Urine Ketones (Negative) mg/dL Ur Blood (Man) (Negative) Urine Nitrate (Negative) Urine Bilirubin (Negative) Urine Urobilinogen (<2.0) mg/dL Leukocyte Esterase Rfl (Negative) JOANA/UL POC Urine HCG, Qual (Negative) Urine Test Influenza A (RT-PCR) (Negative) Influenza B (RT-PCR) (Negative) RSV (RT-PCR) (Negative) SARS-CoV-2 RNA (RT-PCR) (Negative) 06/07/24 06/07/24 06/07/24 Range/Units 05:27 06:28 06:48 WBC (4.5-10.0) K/mm3 RBC (4.2-5.4) M/mm3 Hgb (12.0-15.0) g/dL Hct (37.0-47.0) % MCV (80-100) fl MCH (26-34) pg MCHC (32-36) g/dl RDW (11.5-14.5) % Plt Count (150-375) k/mm3 MPV (7.4-10.4) fl Immature Gran % (Auto) (0-0.5) % Neut % (Auto) (45.5-73.1) % Lymph % (Auto) (18.3-44.2) % [place] % (Auto) (2.6-8.5) % Eos % (Auto) (0-4.4) % Baso % (Auto) (0.2-1.2) % Lymph # (Auto) (0.9-3.2) K/mm3 [place] # (Auto) (0.1-0.6) K/mm3 Eos # (Auto) (0-0.3) K/mm3 Baso # (Auto) (0.0-0.1) K/mm3 Abs Immat Gran (auto) (0.00-0.031) K/mm3 Absolute Neuts (auto) (1.3-6.7) K/mm3 Absolute Nucleated RBC (0.0-0.012) K/mm3 Nucleated RBC % (0.0-0.2) % Sodium (137-145) mmol/L Potassium (3.4-5.0) mmol/L Chloride (98-107) mmol/L Carbon Dioxide (22-30) mmol/L Anion Gap (4-12) mmol/L BUN (7-17) mg/dL Creatinine (0.7-1.0) mg/dL Estim Creat Clear Calc ml/min Estimated GFR (59 - ) Glucose (65-110) mg/dL POC Capillary Glucose (65-105) mg/dl Calcium (8.4-10.2) mg/dL Phosphorus (2.5-4.5) mg/dL Magnesium (1.6-2.3) mg/dL Total Bilirubin (0.2-1.3) mg/dL AST (14-36) U/L ALT (6-35) U/L Alkaline Phosphatase (38-126) U/L Total Protein (6.3-8.2) g/dL Albumin (3.5-5.1) g/dL Beta-Hydroxybutyrate/Acetoacetate (0.02-0.27) mmol/L Urine Color Yellow (Yellow) Urine Appearance Clear (Clear) Urine pH 6.0 (5.0-9.0) Ur Specific [place] > 1.045 H (1.001-1.035) Urine Protein Negative (Negative) mg/dL Urine Glucose (UA) 3+ H (Negative) mg/dL Urine Ketones Trace H (Negative) mg/dL Ur Blood (Man) Negative (Negative) Urine Nitrate Negative (Negative) Urine Bilirubin Negative (Negative) Urine Urobilinogen 0.2 (<2.0) mg/dL Leukocyte Esterase Rfl Negative (Negative) JOANA/UL POC Urine HCG, Qual Negative (Negative) Urine Test Influenza A (RT-PCR) Negative (Negative) Influenza B (RT-PCR) Negative (Negative) RSV (RT-PCR) Negative (Negative) SARS-CoV-2 RNA (RT-PCR) Negative (Negative) 06/07/24 06/07/24 06/07/24 Range/Units 07:39 07:43 09:48 WBC (4.5-10.0) K/mm3 RBC (4.2-5.4) M/mm3 Hgb (12.0-15.0) g/dL Hct (37.0-47.0) % MCV (80-100) fl MCH (26-34) pg MCHC (32-36) g/dl RDW (11.5-14.5) % Plt Count (150-375) k/mm3 MPV (7.4-10.4) fl Immature Gran % (Auto) (0-0.5) % Neut % (Auto) (45.5-73.1) % Lymph % (Auto) (18.3-44.2) % [place] % (Auto) (2.6-8.5) % Eos % (Auto) (0-4.4) % Baso % (Auto) (0.2-1.2) % Lymph # (Auto) (0.9-3.2) K/mm3 [place] # (Auto) (0.1-0.6) K/mm3 Eos # (Auto) (0-0.3) K/mm3 Baso # (Auto) (0.0-0.1) K/mm3 Abs Immat Gran (auto) (0.00-0.031) K/mm3 Absolute Neuts (auto) (1.3-6.7) K/mm3 Absolute Nucleated RBC (0.0-0.012) K/mm3 Nucleated RBC % (0.0-0.2) % Sodium (137-145) mmol/L Potassium (3.4-5.0) mmol/L Chloride (98-107) mmol/L Carbon Dioxide (22-30) mmol/L Anion Gap (4-12) mmol/L BUN (7-17) mg/dL Creatinine (0.7-1.0) mg/dL Estim Creat Clear Calc ml/min Estimated GFR (59 - ) Glucose (65-110) mg/dL POC Capillary Glucose 227 H 241 H (65-105) mg/dl Calcium (8.4-10.2) mg/dL Phosphorus (2.5-4.5) mg/dL Magnesium (1.6-2.3) mg/dL Total Bilirubin (0.2-1.3) mg/dL AST (14-36) U/L ALT (6-35) U/L Alkaline Phosphatase (38-126) U/L Total Protein (6.3-8.2) g/dL Albumin (3.5-5.1) g/dL Beta-Hydroxybutyrate/Acetoacetate (0.02-0.27) mmol/L Urine Color (Yellow) Urine Appearance (Clear) Urine pH (5.0-9.0) Ur Specific [place] (1.001-1.035) Urine Protein (Negative) mg/dL Urine Glucose (UA) (Negative) mg/dL Urine Ketones (Negative) mg/dL Ur Blood (Man) (Negative) Urine Nitrate (Negative) Urine Bilirubin (Negative) Urine Urobilinogen (<2.0) mg/dL Leukocyte Esterase Rfl (Negative) JOANA/UL POC Urine HCG, Qual (Negative) Urine Test Negative Influenza A (RT-PCR) (Negative) Influenza B (RT-PCR) (Negative) RSV (RT-PCR) (Negative) SARS-CoV-2 RNA (RT-PCR) (Negative) Discharge Plan Discharge Clinical Impression: Diarrhea, Acute hyperglycemia, Diabetes mellitus Patient Disposition: Home, Self-Care Condition: Stable Instructions: Antibiotic Form, Acute Diarrhea (ED), Diabetic Hyperglycemia (ED) Additional Instructions: Please stay well hydrated please follow-up with your primary care provider Patient Language: Uzbek Prescriptions: No Action Humalog U-100 Insulin 100 unit/mL Cartridge See Rx Instructions .ROUTE .COMPLEX Rx Instructions: 35 units. uses if pump not in use Lantus U-100 Insulin 100 unit/mL solution 25 unit subcut DAILY Qty: 10 0RF insulin lispro [Humalog KwikPen Insulin] 100 unit/mL insulin pen 8 unit subcut . t.i.d. with meals Qty: 15 0RF amoxicillin-pot clavulanate [Augmentin] 875-125 mg tablet 1 tablet PO Q12H Qty: 20 0RF Humalog U-100 Insulin 100 unit/mL Cartridge 1 sliding scale dose SUBCUT USEASDIRECTD Rx Instructions: via insulin pump chlorhexidine gluconate [Peridex] 0.12 % mouthwash 15 ml buccal BID Qty: 15 0RF Follow-up/Referrals: UNKNOWN,DOCTOR [Primary Care Provider] - Time of Disposition: 10:06
[2024-06-07 10:10] VITALS: TEMP 36.8
[2024-06-07 10:13] VITALS: BP 132/81; PULSE 97; RESP 16; O2SAT 100
== END 2024-06-07 10:57 | disposition home or self-care (01) ==
PROVIDERS: Student in an Organized Health Care Education/Training Program; Emergency Provider Emergency Medicine
DX: R19.7 Diarrhea, unspecified (principal); E10.65 Type 1 diabetes mellitus with hyperglycemia; Z20.822 Contact with and (suspected) exposure to COVID-19; Z79.4 Long term (current) use of insulin; R94.31 Abnormal electrocardiogram [ECG] [EKG]
CPT/HCPCS: 36415; 80053; 81003; 81025; 82010; 82948; 83735; 84100; 85025; 87637; 93005; 96360; 99283; J7030